=== PATIENT | female | born 1945 | race Caucasian/White ===

== ENCOUNTER 2016-11-10 12:54 | Inpatient (IN) | payer MEDICARE, OTHER ==
[2016-11-10] MEDS ORDERED: Ciprofloxacin 500 MG Tab PO SCH (17:00)
--- NOTE | 2016-11-10 17:17 | PCM.HP ---
H&P History of Present Illness - General Date of Service: 11/10/16 Admit Problem/Dx: Admission Diagnosis/Problem Admission Diagnosis/Problem Fusion of posterior lumbar spine Source of Information: Patient History Limitations: Reports: No limitations - History of Present Illness Initial Comments - Free Text/Narative: Mrs. Zaldivar is a 70 yo female who is transferred to [facility] for a swing bed stay for rehabilitation following an L2-S1 decompression laminectomy and fusion. I do not have any discharge summary from [facility] and can only go by what the patient is telling me. Her hospital stay was complicated by anemia and she reports that she required 2 blood transfusions. She has been very frustrated with her lack of mobility since the surgery but notes that this is improving every day. She has had some trouble with constipation, which she attributes to her narcotic pain medications but states that she has been told to hold her mobic so this is really her only option for pain. She denies any other concerns at this time. - Related Data Allergies/Adverse Reactions: Allergies Allergy/AdvReac Type Severity Reaction Status Date / Time butorphanol Allergy Difficulty Verified 11/10/16 15:07 Breathing diflunisal Allergy Rash Verified 11/10/16 15:07 FD and C blue no.2 Allergy Rash Verified 11/10/16 15:07 (indigotine) flaxseed Allergy Other Verified 11/10/16 15:07 lisinopril Allergy Hypotension Verified 11/10/16 15:07 niacin Allergy Mouth Sores Verified 11/10/16 15:07 penicillin G Allergy Rash Verified 11/10/16 15:07 Penicillins Allergy Rash Verified 11/10/16 15:07 ramipril Allergy Rash Verified 11/10/16 15:07 Home Medications: Home Meds Acetaminophen 650 mg PO Q4H PRN 11/10/16 [History] Aspirin [Halfprin] 81 mg PO DAILY 11/10/16 [History] Atenolol 50 mg PO BID 11/10/16 [History] Baclofen 10 mg PO TIDMEALS PRN 11/10/16 [History] Calcium Carb/Vitamin D3/Vit K1 [Viactiv Soft Chew Tablet] 1 each PO DAILY [History] Ciprofloxacin [Ciprofloxacin HCl] 500 mg PO Q12H 11/10/16 [History] Cyclobenzaprine [Flexeril] 10 mg PO BEDTIME 11/10/16 [History] Fluticasone Propionate [Flonase] 2 spray NASBOTH DAILY 11/10/16 [History] Glucosamine Sulfate/Msm [Glucosamine-MSM 500-400 MG] 2 tab PO DAILY 11/10/16 [ History] Hydrocodone/Acetaminophen [Hydrocodon-Acetaminophen 5-325] 1 each PO Q4H PRN 05/21 [History] Meloxicam [Mobic] 15 mg PO DAILY 11/10/16 [History] NIFEdipine [Procardia Xl] 60 mg PO DAILY 11/10/16 [History] Sertraline [Zoloft] 50 mg PO DAILY 11/10/16 [History] Simvastatin [Zocor] 20 mg PO BEDTIME 11/10/16 [History] Spironolactone [Aldactone] 25 mg PO BID 11/10/16 [History] rOPINIRole [Requip] 1 mg PO QPM 11/10/16 [History] Past Medical History HEENT History: Reports: Hard of hearing Cardiovascular History: Reports: High cholesterol, Hypertension Respiratory History: Reports: None Gastrointestinal History: Reports: Colon polyp, Other (see below) Other Gastrointestinal History: postoperative nausea/vomiting Genitourinary History: Reports: None [employer] History: Reports: Other (see below) Other OB/BYN History: post menopausal HRT Musculoskeletal History: Reports: Other (see below) Other Musculoskeletal History: carpal tunnel syndrome, DJD, RLS, ankle fusion Neurological History: Reports: None Psychiatric History: Reports: Depression Endocrine/Metabolic History: Reports: Hyperparathyroidism, Obesity/BMI 30+, Other (see below) Other Endocrine/Metabolic History: prediabetes Hematologic History: Reports: None Immunologic History: Reports: None Oncologic (Cancer) History: Reports: None Dermatologic History: Reports: None - Infectious Disease History Infectious Disease History: Reports: MRSA - Past Surgical History HEENT Surgical History: Reports: Tonsillectomy GI Surgical History: Reports: Appendectomy, Colonoscopy, Polypectomy Female Surgical History: Reports: D&C, Hysterectomy, Tubal ligation Endocrine Surgical History: Reports: Parathyroidectomy Musculoskeletal Surgical History: Reports: Other (see below) Other Musculoskeletal Surgeries/Procedures:: bilat Knee arthroplasty; L2-S1 decompression laminectomy and fusion Social & Family History - Family History Cardiac: Reports: CAD, SD - Tobacco Use Smoking Status *Q: Never Smoker - Caffeine Use Caffeine Use: Reports: Coffee, Soda - Alcohol Use Alcohol Use History: No Alcohol Use in Last Twelve Months: No - Recreational Drug Use Recreational Drug Use: No - Living Situation & Occupation Living situation: Reports: , with significant other Occupation: retired (nurse) H&P Review of Systems - Review of Systems: Review Of Systems: See Below General: Reports: no symptoms HEENT: Reports: no symptoms Pulmonary: Reports: no symptoms Cardiovascular: Reports: no symptoms Gastrointestinal: Reports: Abdominal pain, Constipation. Denies: Nausea, Vomiting Genitourinary: Reports: no symptoms Musculoskeletal: Reports: no symptoms Skin: Reports: no symptoms Psychiatric: Reports: no symptoms Neurological: Reports: no symptoms Exam - Exam Exam: See Below - Vital Signs Vital Signs: Last Vital Signs Temp 37 C 11/10/16 14:20 Pulse 88 11/10/16 14:20 Resp 18 11/10/16 14:20 BP 123/64 11/10/16 14:20 Pulse Ox 97 11/10/16 14:20 Weight: 98.883 kg - Exam General: alert, oriented, cooperative HEENT: Conjunctiva clear, Mucosa moist & pink, Posterior pharynx clear, Pupils equal, Pupils reactive Neck: supple, trachea midline. No: thyromegaly Lungs: Clear to auscultation, Normal respiratory effort Cardiovascular: regular rate, regular rhythm, normal S1, normal S2. No: systolic murmur, diastolic murmur Abdomen: normal bowel sounds, soft. No: organomegaly, distention, tenderness Extremities: normal inspection, normal pulses. No: edema Skin: warm, dry, intact *Q Meaningful Use (ADM) - VTE *Q VTE Criteria *Q: VTE Anticoagulation Contraindications: Med/tx not indicated/need - Stroke *Q Stroke Criteria *Q: - AMI *Q AMI Criteria *Q: - Problem List (1) Status post lumbar spine surgery for decompression of spinal cord SNOMED Code(s): 794943503, 974743308 ICD Code: Z98.890 - OTHER SPECIFIED POSTPROCEDURAL STATES Status: Acute Current Visit: Yes Problem Details: - Here for therapy following surgery. - Doing well postop. - PT eval and treat. - Continue flexeril, baclofen, and hydrocodone/acetaminophen PRN pain. Wean as able. (2) Leg weakness, bilateral SNOMED Code(s): 8167060 ICD Code: R29.898 - OTH SYMPTOMS AND SIGNS INVOLVING THE MUSCULOSKELETAL SYSTEM Status: Acute Current Visit: Yes Problem Details: - As above, PT eval and treat. (3) UTI (urinary tract infection) SNOMED Code(s): 19831714 ICD Code: N39.0 - URINARY TRACT INFECTION, SITE NOT SPECIFIED Status: Acute Current Visit: Yes Problem Details: - Patient reports this is the reason for the ciprofloxacin. - Will complete course on 11/12 as recorded on med list. Qualifiers: Urinary tract infection type: site unspecified Hematuria presence: without hematuria Qualified Code(s): N39.0 - Urinary tract infection, site not specified (4) Anemia SNOMED Code(s): 435916265 ICD Code: D64.9 - ANEMIA, UNSPECIFIED Status: Acute Current Visit: Yes Problem Details: - Patient reports issues postop. - Will await d/c summary to determine when this needs to be rechecked. - Recheck anytime for s/s of anemia. Qualifiers: Anemia type: unspecified type Qualified Code(s): D64.9 - Anemia, unspecified (5) Hypertension SNOMED Code(s): 66838052 ICD Code: I10 - ESSENTIAL (PRIMARY) HYPERTENSION Status: Chronic Current Visit: Yes Problem Details: - Continue atenolol and nifedipine. Qualifiers: Hypertension type: essential hypertension Qualified Code(s): I10 - Essential (primary) hypertension (6) Hyperlipidemia SNOMED Code(s): 13032708 ICD Code: E78.5 - HYPERLIPIDEMIA, UNSPECIFIED Status: Chronic Current Visit: Yes Problem Details: - Continue simvastatin. Qualifiers: Hyperlipidemia type: unspecified Qualified Code(s): E78.5 - Hyperlipidemia , unspecified (7) Restless leg syndrome SNOMED Code(s): 54204572 ICD Code: G25.81 - RESTLESS LEGS SYNDROME Status: Chronic Current Visit: Yes Problem Details: - Continue ropinorole. (8) Depression SNOMED Code(s): 11143801 ICD Code: F32.9 - MAJOR DEPRESSIVE DISORDER, SINGLE EPISODE, UNSPECIFIED Status: Chronic Current Visit: Yes Problem Details: - Continue zoloft. Qualifiers: Depression Type: major depressive disorder Major depression recurrence: single episode Major depression episode severity: unspecified (9) Seasonal allergies SNOMED Code(s): 899443964 ICD Code: J30.2 - OTHER SEASONAL ALLERGIC RHINITIS Status: Chronic Current Visit: Yes Problem Details: - Continue flonase. Qualifiers: Allergic rhinitis trigger: unspecified Qualified Code(s): J30.2 - Other seasonal allergic rhinitis (10) DJD (degenerative joint disease) SNOMED Code(s): 637067094 ICD Code: M19.90 - UNSPECIFIED OSTEOARTHRITIS, UNSPECIFIED SITE Status: Chronic Current Visit: Yes Problem Details: - Hold eric until we get clarification from her hospital summary. Qualifiers: Osteoarthritis location: unspecified site Osteoarthritis type: primary Qualified Code(s): M19.91 - Primary osteoarthritis, unspecified site (11) Obesity (BMI 30-39.9) SNOMED Code(s): 867121031, 423571419 ICD Code: E66.9 - OBESITY, UNSPECIFIED Status: Chronic Current Visit: Yes Problem List Initiated/Reviewed/Updated: Yes Orders Last 24hrs: Active Orders 24 hr Category Date Time Status Admission Status [Patient Status] [ADT] Routine ADT 11/10/16 14:05 Active Oxygen Therapy [RC] .PRN Care 11/10/16 16:30 Active Oxygen Therapy [RC] PRN Care 11/10/16 16:31 Active Up With Assistance [RC] ASDIRECTED Care 11/10/16 16:30 Active VTE/DVT Education [RC] .PRN Care 11/10/16 16:30 Active Vital Signs [RC] 06,18 Care 11/10/16 16:30 Active PT Evaluation and Treatment [CONS] Routine Cons 11/10/16 16:31 Active Regular Diet [DIET] Diet 11/10/16 Dinner Active Acetaminophen [Tylenol] Med 11/10/16 17:08 Ordered 650 mg PO Q4H PRN Acetaminophen/HYDROcodone [[place] 325-5 MG] Med 11/10/16 17:08 Ordered DOSE tab PO Q4H PRN Atenolol [Tenormin] Med 11/10/16 20:00 Ordered 50 mg PO BID Baclofen [Lioresal] Med 11/10/16 17:08 Ordered 10 mg PO TIDMEALS PRN Calcium Carb/Vitamin D3/Vit K1 [Viactiv Soft Chew] Med 11/11/16 08:00 Ordered 1 each PO DAILY Ciprofloxacin [Ciprofloxacin HCl] Med 11/10/16 17:15 Ordered 500 mg PO Q12H Cyclobenzaprine [Flexeril] Med 11/10/16 20:00 Ordered 10 mg PO BEDTIME Fluticasone Propionate [Flonase] Med 11/11/16 08:00 Ordered DOSE gm NASBOTH DAILY NIFEdipine [Procardia Xl] Med 11/11/16 08:00 Ordered 60 mg PO DAILY Sertraline [Zoloft] Med 11/11/16 08:00 Ordered 50 mg PO DAILY Simvastatin [Zocor] Med 11/10/16 20:00 Ordered 20 mg PO BEDTIME Spironolactone [Aldactone] Med 11/10/16 20:00 Ordered 25 mg PO BID rOPINIRole [Requip] Med 11/10/16 20:00 Ordered 1 mg PO QPM Anticoagulation Contraindications VTE [AST] Routine Oth 11/10/16 16:30 Ordered Resuscitation Status Routine Resus Stat 11/10/16 16:30 Ordered Medication Orders Acetaminophen (Tylenol) 650 mg PO Q4H PRN PRN Reason: Pain Acetaminophen/Hydrocodone Bitart ([place] 325-5 Mg) tab PO Q4H PRN PRN Reason: Pain (moderate 4-6) Atenolol (Tenormin) 50 mg PO BID YAMINI Baclofen (Lioresal) 10 mg PO TIDMEALS PRN PRN Reason: Pain Ciprofloxacin (Ciprofloxacin Hcl) 500 mg PO Q12H YAMINI Stop: 11/10/16 20:01 Cyclobenzaprine HCl (Flexeril) 10 mg PO BEDTIME YAMINI Fluticasone Propionate (Flonase) gm NASBOTH DAILY YAMINI Non-Formulary Medication (Calcium Carb/Vitamin D3/Vit K1 [Viactiv Soft Chew]) 1 each PO DAILY YAMINI Non-Formulary Medication (Nifedipine [Procardia Xl]) 60 mg PO DAILY YAMINI Non-Formulary Medication (Ropinirole [Requip]) 1 mg PO QPM YAMINI Sertraline HCl (Zoloft) 50 mg PO DAILY YAMINI Simvastatin (Zocor) 20 mg PO BEDTIME YAMINI Spironolactone (Aldactone) 25 mg PO BID YAMINI Assessment/Plan Comment:: 70 yo admitted for rehab swing bed stay s/p L2-S1 decompression and fusion. Awaiting hospital d/c summary for additional details regarding hospitalization. For now, see details under problems listed above. Continue medications with the exception of mobic and aspirin until this is clarified. Patient will not be on VTE prophylaxis either until this is clarified given recent surgery and need for transfusion during her hospitalization. She is Full Code. Duration of stay will be dependent on progress with PT.
[2016-11-10] MEDS ORDERED: Atenolol 50 MG Tab PO SCH (20:00)
[2016-11-10] MEDS ORDERED: Spironolactone 25 MG Tab PO SCH (20:00)
[2016-11-10] MEDS: Ciprofloxacin 500 MG Tab PO SCH (21:50)
[2016-11-10] MEDS: Cyclobenzaprine 10 MG Tab PO SCH (21:50)
[2016-11-10] MEDS: Atenolol 50 MG Tab PO SCH (21:50)
[2016-11-10] MEDS: Simvastatin 20 MG Tab PO SCH (21:51)
[2016-11-10] MEDS: rOPINIRole 0.5 MG Tab PO SCH (21:51)
[2016-11-10] MEDS: Acetaminophen 325 MG Tab PO PRN (21:52)
[2016-11-11] MEDS ORDERED: VIT K1 PO SCH (08:00)
[2016-11-11] MEDS ORDERED: CALCIUM CARB PO SCH (08:00)
[2016-11-11] MEDS ORDERED: [UNRECOGNIZED DRUG - OTHER] PO SCH (08:00)
[2016-11-11] MEDS ORDERED: VITAMIN D3 PO SCH (08:00)
[2016-11-11] MEDS: Atenolol 50 MG Tab PO SCH ×2 (08:24→20:08)
[2016-11-11] MEDS: Sertraline 50 MG Tab PO SCH (08:26)
[2016-11-11] MEDS: Ciprofloxacin 500 MG Tab PO SCH ×2 (08:26→20:08)
[2016-11-11] MEDS: Acetaminophen/HYDROcodone 325-5 MG Tab PO PRN (08:26)
[2016-11-11] MEDS: Aspirin 81 MG Tab.EC PO SCH (08:26)
[2016-11-11] MEDS: Polyethylene Glycol 3350 Powder 17 GM Packet PO SCH (08:27)
[2016-11-11] MEDS: NIFEdipine 30 MG Tab.ER PO SCH (08:27)
[2016-11-11] MEDS: Fluticasone Propionate Nasal Spray 16 GM Bottle NASBOTH SCH (08:30)
[2016-11-11] MEDS: Acetaminophen 325 MG Tab PO PRN ×2 (15:34→20:40)
[2016-11-11] MEDS: Baclofen 10 MG Tab PO PRN ×2 (15:37→20:40)
[2016-11-11] MEDS: rOPINIRole 0.5 MG Tab PO SCH (20:07)
[2016-11-11] MEDS: Cyclobenzaprine 10 MG Tab PO SCH (20:09)
[2016-11-11] MEDS: Simvastatin 20 MG Tab PO SCH (20:09)
[2016-11-12] MEDS: Acetaminophen 325 MG Tab PO PRN ×4 (03:39→19:18)
[2016-11-12] MEDS: Aspirin 81 MG Tab.EC PO SCH (07:22)
[2016-11-12] MEDS: Sertraline 50 MG Tab PO SCH (07:22)
[2016-11-12] MEDS: Ciprofloxacin 500 MG Tab PO SCH ×2 (07:22→19:19)
[2016-11-12] MEDS: Atenolol 50 MG Tab PO SCH ×2 (07:23→19:20)
[2016-11-12] MEDS: NIFEdipine 30 MG Tab.ER PO SCH (07:23)
[2016-11-12] MEDS: Fluticasone Propionate Nasal Spray 16 GM Bottle NASBOTH SCH (07:24)
[2016-11-12] MEDS: Polyethylene Glycol 3350 Powder 17 GM Packet PO SCH (07:24)
[2016-11-12] MEDS: Baclofen 10 MG Tab PO PRN (09:29)
[2016-11-12] MEDS: Acetaminophen/HYDROcodone 325-5 MG Tab PO PRN ×2 (13:18→23:19)
[2016-11-12] MEDS: rOPINIRole 0.5 MG Tab PO SCH (19:19)
[2016-11-12] MEDS: Simvastatin 20 MG Tab PO SCH (19:20)
[2016-11-12] MEDS: Cyclobenzaprine 10 MG Tab PO SCH (19:21)
[2016-11-13] MEDS: Acetaminophen 325 MG Tab PO PRN ×3 (04:41→19:12)
[2016-11-13] MEDS: Fluticasone Propionate Nasal Spray 16 GM Bottle NASBOTH SCH (07:58)
[2016-11-13] MEDS: Sertraline 50 MG Tab PO SCH (07:58)
[2016-11-13] MEDS: Aspirin 81 MG Tab.EC PO SCH (07:58)
[2016-11-13] MEDS: Ciprofloxacin 500 MG Tab PO SCH ×2 (07:58→19:11)
[2016-11-13] MEDS: Polyethylene Glycol 3350 Powder 17 GM Packet PO SCH (07:58)
[2016-11-13] MEDS: NIFEdipine 30 MG Tab.ER PO SCH (07:58)
[2016-11-13] MEDS: Atenolol 50 MG Tab PO SCH ×2 (07:59→19:11)
[2016-11-13] MEDS: Acetaminophen/HYDROcodone 325-5 MG Tab PO PRN ×2 (09:44→23:24)
[2016-11-13] MEDS: rOPINIRole 0.5 MG Tab PO SCH (19:10)
[2016-11-13] MEDS: Cyclobenzaprine 10 MG Tab PO SCH (19:12)
[2016-11-13] MEDS: Simvastatin 20 MG Tab PO SCH (19:12)
[2016-11-14] MEDS: Acetaminophen 325 MG Tab PO PRN ×2 (02:21→21:47)
[2016-11-14] MEDS: Fluticasone Propionate Nasal Spray 16 GM Bottle NASBOTH SCH (07:40)
[2016-11-14] MEDS: Ciprofloxacin 500 MG Tab PO SCH (07:40)
[2016-11-14] MEDS: Polyethylene Glycol 3350 Powder 17 GM Packet PO SCH (07:40)
[2016-11-14] MEDS: NIFEdipine 30 MG Tab.ER PO SCH (07:40)
[2016-11-14] MEDS: Atenolol 50 MG Tab PO SCH (07:41)
[2016-11-14] MEDS: Baclofen 10 MG Tab PO PRN ×2 (07:41→16:07)
[2016-11-14] MEDS: Sertraline 50 MG Tab PO SCH (07:41)
[2016-11-14] MEDS: Aspirin 81 MG Tab.EC PO SCH (07:41)
[2016-11-14] MEDS: Acetaminophen/HYDROcodone 325-5 MG Tab PO PRN ×2 (12:57→17:54)
[2016-11-14] MEDS: rOPINIRole 0.5 MG Tab PO SCH (19:45)
[2016-11-14] MEDS: Atenolol 25 MG Tab PO SCH (19:46)
[2016-11-14] MEDS: Simvastatin 20 MG Tab PO SCH (19:46)
[2016-11-14] MEDS: Cyclobenzaprine 10 MG Tab PO SCH (19:46)
[2016-11-15] MEDS: Acetaminophen/HYDROcodone 325-5 MG Tab PO PRN ×3 (00:51→21:01)
[2016-11-15] MEDS: Acetaminophen 325 MG Tab PO PRN ×2 (05:33→15:35)
[2016-11-15] MEDS: NIFEdipine 30 MG Tab.ER PO SCH (08:32)
[2016-11-15] MEDS: Polyethylene Glycol 3350 Powder 17 GM Packet PO SCH (08:32)
[2016-11-15] MEDS: Aspirin 81 MG Tab.EC PO SCH (08:33)
[2016-11-15] MEDS: Atenolol 25 MG Tab PO SCH ×2 (08:33→19:30)
[2016-11-15] MEDS: Fluticasone Propionate Nasal Spray 16 GM Bottle NASBOTH SCH (08:33)
[2016-11-15] MEDS: Sertraline 50 MG Tab PO SCH (08:33)
--- NOTE | 2016-11-15 10:34 | PCM.SN ---
- Free Text/Narrative Note: Patient due for staple removal today. Cancelled [place] appointment as we are able to do that here. Swati removed without complication. There was an area on the lower aspect of the incision that is gaping in the superficial levels; the deeper levels are healing well. Steri-strips were applied to keep this approximated. Continue current wound cares. As she is 2 weeks out from surgery and things are healing well, will go ahead and restart her mobic at her previous home doses. Recheck CBC tomorrow morning.
[2016-11-15] MEDS: Meloxicam 7.5 MG Tab PO SCH (12:09)
[2016-11-15] MEDS: rOPINIRole 0.5 MG Tab PO SCH (19:29)
[2016-11-15] MEDS: Cyclobenzaprine 10 MG Tab PO SCH (19:29)
[2016-11-15] MEDS: Simvastatin 20 MG Tab PO SCH (19:30)
[2016-11-16] MEDS: Acetaminophen/HYDROcodone 325-5 MG Tab PO PRN ×5 (01:04→21:30)
[2016-11-16] MEDS: Fluticasone Propionate Nasal Spray 16 GM Bottle NASBOTH SCH (08:08)
[2016-11-16] MEDS: Polyethylene Glycol 3350 Powder 17 GM Packet PO SCH (08:08)
[2016-11-16] MEDS: Aspirin 81 MG Tab.EC PO SCH (08:09)
[2016-11-16] MEDS: Baclofen 10 MG Tab PO PRN (08:09)
[2016-11-16] MEDS: NIFEdipine 30 MG Tab.ER PO SCH (08:09)
[2016-11-16] MEDS: Atenolol 25 MG Tab PO SCH ×2 (08:09→19:55)
[2016-11-16] MEDS: Sertraline 50 MG Tab PO SCH (08:09)
[2016-11-16] MEDS: Meloxicam 7.5 MG Tab PO SCH (08:09)
[2016-11-16] MEDS: rOPINIRole 0.5 MG Tab PO SCH (19:54)
[2016-11-16] MEDS: Cyclobenzaprine 10 MG Tab PO SCH (19:54)
[2016-11-16] MEDS: Simvastatin 20 MG Tab PO SCH (20:01)
[2016-11-17] MEDS: Baclofen 10 MG Tab PO PRN ×2 (01:43→20:00)
[2016-11-17] MEDS: Acetaminophen 325 MG Tab PO PRN ×2 (06:25→13:36)
[2016-11-17] MEDS: Aspirin 81 MG Tab.EC PO SCH (07:39)
[2016-11-17] MEDS: Sertraline 50 MG Tab PO SCH (07:39)
[2016-11-17] MEDS: Atenolol 25 MG Tab PO SCH ×2 (07:39→20:00)
[2016-11-17] MEDS: NIFEdipine 30 MG Tab.ER PO SCH (07:39)
[2016-11-17] MEDS: Acetaminophen/HYDROcodone 325-5 MG Tab PO PRN ×3 (07:40→21:12)
[2016-11-17] MEDS: Meloxicam 7.5 MG Tab PO SCH (07:40)
[2016-11-17] MEDS: Fluticasone Propionate Nasal Spray 16 GM Bottle NASBOTH SCH (07:40)
[2016-11-17] MEDS: Polyethylene Glycol 3350 Powder 17 GM Packet PO SCH (07:41)
--- NOTE | 2016-11-17 17:09 | PCM.SN ---
- Free Text/Narrative Note: Patient has had difficulty sleeping. She feels this is related to the fact that she usually sleeps in a recliner rather than a bed at home. She is finding this uncomfortable and feels achey at night. Nursing staff wonder if there is some anxiety contributing. Patient had been on gabapentin but developed hallucinations. This was at a dose of 600 mg TID. I think that gabapentin would be a good option to treat anxiety, sleep, and pain. The patient is willing to give this a try at a lower dose. Will start at 100 mg before bed.
[2016-11-17] MEDS: Gabapentin 100 MG Cap PO SCH (20:00)
[2016-11-17] MEDS: Cyclobenzaprine 10 MG Tab PO SCH (20:00)
[2016-11-17] MEDS: rOPINIRole 0.5 MG Tab PO SCH (20:00)
[2016-11-17] MEDS: Simvastatin 20 MG Tab PO SCH (20:00)
[2016-11-18] MEDS: Acetaminophen/HYDROcodone 325-5 MG Tab PO PRN ×4 (01:17→20:21)
[2016-11-18] MEDS: Baclofen 10 MG Tab PO PRN ×2 (03:45→07:55)
[2016-11-18] MEDS: Polyethylene Glycol 3350 Powder 17 GM Packet PO SCH (07:50)
[2016-11-18] MEDS: Sertraline 50 MG Tab PO SCH (07:51)
[2016-11-18] MEDS: Aspirin 81 MG Tab.EC PO SCH (07:51)
[2016-11-18] MEDS: Fluticasone Propionate Nasal Spray 16 GM Bottle NASBOTH SCH (07:52)
[2016-11-18] MEDS: NIFEdipine 30 MG Tab.ER PO SCH (07:53)
[2016-11-18] MEDS: Meloxicam 7.5 MG Tab PO SCH (07:53)
[2016-11-18] MEDS: Atenolol 25 MG Tab PO SCH ×2 (07:54→20:23)
[2016-11-18] MEDS: Simvastatin 20 MG Tab PO SCH (20:23)
[2016-11-18] MEDS: rOPINIRole 0.5 MG Tab PO SCH (20:23)
[2016-11-18] MEDS: Gabapentin 100 MG Cap PO SCH (20:23)
[2016-11-18] MEDS: Acetaminophen 325 MG Tab PO PRN (20:23)
[2016-11-18] MEDS: Cyclobenzaprine 10 MG Tab PO SCH (20:23)
[2016-11-19] MEDS: Acetaminophen/HYDROcodone 325-5 MG Tab PO PRN ×4 (03:06→20:55)
[2016-11-19] MEDS: Meloxicam 7.5 MG Tab PO SCH (08:10)
[2016-11-19] MEDS: Baclofen 10 MG Tab PO PRN (08:10)
[2016-11-19] MEDS: Polyethylene Glycol 3350 Powder 17 GM Packet PO SCH (08:10)
[2016-11-19] MEDS: Fluticasone Propionate Nasal Spray 16 GM Bottle NASBOTH SCH (08:11)
[2016-11-19] MEDS: Sertraline 50 MG Tab PO SCH (08:11)
[2016-11-19] MEDS: Aspirin 81 MG Tab.EC PO SCH (08:11)
[2016-11-19] MEDS: Atenolol 25 MG Tab PO SCH ×2 (08:11→20:56)
[2016-11-19] MEDS: NIFEdipine 30 MG Tab.ER PO SCH (08:11)
[2016-11-19] MEDS: Simvastatin 20 MG Tab PO SCH (20:54)
[2016-11-19] MEDS: Acetaminophen 325 MG Tab PO PRN (20:55)
[2016-11-19] MEDS: rOPINIRole 0.5 MG Tab PO SCH (20:59)
[2016-11-19] MEDS: Gabapentin 100 MG Cap PO SCH (20:59)
[2016-11-19] MEDS: Cyclobenzaprine 10 MG Tab PO SCH (20:59)
[2016-11-20] MEDS: Acetaminophen/HYDROcodone 325-5 MG Tab PO PRN ×4 (00:34→20:31)
[2016-11-20] MEDS: Atenolol 25 MG Tab PO SCH ×2 (07:59→20:32)
[2016-11-20] MEDS: Sertraline 50 MG Tab PO SCH (07:59)
[2016-11-20] MEDS: Meloxicam 7.5 MG Tab PO SCH (07:59)
[2016-11-20] MEDS: Polyethylene Glycol 3350 Powder 17 GM Packet PO SCH (07:59)
[2016-11-20] MEDS: NIFEdipine 30 MG Tab.ER PO SCH (07:59)
[2016-11-20] MEDS: Fluticasone Propionate Nasal Spray 16 GM Bottle NASBOTH SCH (07:59)
[2016-11-20] MEDS: Aspirin 81 MG Tab.EC PO SCH (07:59)
[2016-11-20] MEDS: Baclofen 10 MG Tab PO PRN ×2 (09:59→19:00)
[2016-11-20] MEDS: Nystatin Crm 30 GM Tube TOP SCH ×3 (10:01→20:34)
[2016-11-20] MEDS: rOPINIRole 0.5 MG Tab PO SCH (20:31)
[2016-11-20] MEDS: Cyclobenzaprine 10 MG Tab PO SCH (20:31)
[2016-11-20] MEDS: Acetaminophen 325 MG Tab PO PRN (20:31)
[2016-11-20] MEDS: Simvastatin 20 MG Tab PO SCH (20:31)
[2016-11-20] MEDS: Gabapentin 100 MG Cap PO SCH (20:35)
[2016-11-21] MEDS: Acetaminophen/HYDROcodone 325-5 MG Tab PO PRN ×4 (01:25→20:09)
[2016-11-21] MEDS: Atenolol 25 MG Tab PO SCH ×2 (08:43→20:10)
[2016-11-21] MEDS: NIFEdipine 30 MG Tab.ER PO SCH (08:43)
[2016-11-21] MEDS: Polyethylene Glycol 3350 Powder 17 GM Packet PO SCH (08:43)
[2016-11-21] MEDS: Aspirin 81 MG Tab.EC PO SCH (08:43)
[2016-11-21] MEDS: Meloxicam 7.5 MG Tab PO SCH (08:43)
[2016-11-21] MEDS: Sertraline 50 MG Tab PO SCH (08:43)
[2016-11-21] MEDS: Fluticasone Propionate Nasal Spray 16 GM Bottle NASBOTH SCH (08:43)
[2016-11-21] MEDS: Nystatin Crm 30 GM Tube TOP SCH ×3 (08:43→20:11)
[2016-11-21] MEDS: Baclofen 10 MG Tab PO PRN ×2 (08:43→17:40)
--- NOTE | 2016-11-21 12:56 | PCM.SN ---
- Free Text/Narrative Note: Checked on patient today. She is overall doing well except for sleep continuing to be an issue. She is now refusing the gabapentin as she fell twice over the weekend and believed this to be the cause. She slept in a recliner last night and this seems better. She did not sustain any injuries with the falls and describes them as "sliding out of bed." She reports that physical therapy is anticipating a 2 week stay before dismissal home. Her pain is controlled. Her pulse was higher yesterday but she states this was checked just after she had returned from a walk. She has had no chest pain or shortness of breath. I did look at her incision and this continues to heal well. She is cleared to shower. Her follow-up appointment is also scheduled.
[2016-11-21] MEDS: Simvastatin 20 MG Tab PO SCH (20:09)
[2016-11-21] MEDS: rOPINIRole 0.5 MG Tab PO SCH (20:09)
[2016-11-21] MEDS: Cyclobenzaprine 10 MG Tab PO SCH (20:10)
[2016-11-22] MEDS: Baclofen 10 MG Tab PO PRN ×3 (00:30→20:01)
[2016-11-22] MEDS: Acetaminophen/HYDROcodone 325-5 MG Tab PO PRN ×3 (04:40→16:43)
[2016-11-22] MEDS: Fluticasone Propionate Nasal Spray 16 GM Bottle NASBOTH SCH (08:49)
[2016-11-22] MEDS: Aspirin 81 MG Tab.EC PO SCH (08:49)
[2016-11-22] MEDS: Sertraline 50 MG Tab PO SCH (08:50)
[2016-11-22] MEDS: Meloxicam 7.5 MG Tab PO SCH (08:51)
[2016-11-22] MEDS: Atenolol 25 MG Tab PO SCH ×2 (08:51→20:01)
[2016-11-22] MEDS: NIFEdipine 30 MG Tab.ER PO SCH (08:51)
[2016-11-22] MEDS: Nystatin Crm 30 GM Tube TOP SCH ×3 (08:52→20:02)
[2016-11-22] MEDS: Polyethylene Glycol 3350 Powder 17 GM Packet PO SCH (08:53)
[2016-11-22] MEDS: Simvastatin 20 MG Tab PO SCH (20:01)
[2016-11-22] MEDS: rOPINIRole 0.5 MG Tab PO SCH (20:01)
[2016-11-22] MEDS: Cyclobenzaprine 10 MG Tab PO SCH (20:02)
[2016-11-23] MEDS: Acetaminophen 325 MG Tab PO PRN ×2 (02:05→20:51)
[2016-11-23] MEDS: Acetaminophen/HYDROcodone 325-5 MG Tab PO PRN ×3 (05:24→20:50)
[2016-11-23] MEDS: Baclofen 10 MG Tab PO PRN ×2 (08:55→16:37)
[2016-11-23] MEDS: NIFEdipine 30 MG Tab.ER PO SCH (09:19)
[2016-11-23] MEDS: Fluticasone Propionate Nasal Spray 16 GM Bottle NASBOTH SCH (09:19)
[2016-11-23] MEDS: Sertraline 50 MG Tab PO SCH (09:21)
[2016-11-23] MEDS: Meloxicam 7.5 MG Tab PO SCH (09:21)
[2016-11-23] MEDS: Atenolol 25 MG Tab PO SCH ×2 (09:21→20:50)
[2016-11-23] MEDS: Polyethylene Glycol 3350 Powder 17 GM Packet PO SCH (09:22)
[2016-11-23] MEDS: Aspirin 81 MG Tab.EC PO SCH (09:22)
[2016-11-23] MEDS: Nystatin Crm 30 GM Tube TOP SCH ×3 (09:23→20:51)
[2016-11-23] MEDS: Cyclobenzaprine 10 MG Tab PO SCH (20:50)
[2016-11-23] MEDS: rOPINIRole 0.5 MG Tab PO SCH (20:51)
[2016-11-23] MEDS: Simvastatin 20 MG Tab PO SCH (20:51)
[2016-11-24] MEDS: Acetaminophen/HYDROcodone 325-5 MG Tab PO PRN ×5 (01:34→23:17)
[2016-11-24] MEDS: Acetaminophen 325 MG Tab PO PRN (06:47)
[2016-11-24] MEDS: Polyethylene Glycol 3350 Powder 17 GM Packet PO SCH (08:54)
[2016-11-24] MEDS: Nystatin Crm 30 GM Tube TOP SCH ×3 (08:54→19:50)
[2016-11-24] MEDS: Fluticasone Propionate Nasal Spray 16 GM Bottle NASBOTH SCH (08:54)
[2016-11-24] MEDS: Atenolol 25 MG Tab PO SCH ×2 (08:56→19:49)
[2016-11-24] MEDS: Aspirin 81 MG Tab.EC PO SCH (08:56)
[2016-11-24] MEDS: Sertraline 50 MG Tab PO SCH (08:56)
[2016-11-24] MEDS: Meloxicam 7.5 MG Tab PO SCH (08:57)
[2016-11-24] MEDS: NIFEdipine 30 MG Tab.ER PO SCH (08:57)
[2016-11-24] MEDS: Cyclobenzaprine 10 MG Tab PO SCH (19:49)
[2016-11-24] MEDS: Simvastatin 20 MG Tab PO SCH (19:49)
[2016-11-24] MEDS: Baclofen 10 MG Tab PO PRN (19:50)
[2016-11-24] MEDS: rOPINIRole 0.5 MG Tab PO SCH (19:51)
[2016-11-25] MEDS: Acetaminophen/HYDROcodone 325-5 MG Tab PO PRN ×2 (03:52→08:45)
[2016-11-25] MEDS: NIFEdipine 30 MG Tab.ER PO SCH (08:38)
[2016-11-25] MEDS: Aspirin 81 MG Tab.EC PO SCH (08:38)
[2016-11-25] MEDS: Meloxicam 7.5 MG Tab PO SCH (08:38)
[2016-11-25] MEDS: Atenolol 25 MG Tab PO SCH ×2 (08:38→20:04)
[2016-11-25] MEDS: Sertraline 50 MG Tab PO SCH (08:38)
[2016-11-25] MEDS: Fluticasone Propionate Nasal Spray 16 GM Bottle NASBOTH SCH (08:39)
[2016-11-25] MEDS: Nystatin Crm 30 GM Tube TOP SCH ×3 (08:39→20:06)
[2016-11-25] MEDS: Polyethylene Glycol 3350 Powder 17 GM Packet PO SCH (08:40)
[2016-11-25] MEDS: Baclofen 10 MG Tab PO PRN ×2 (12:39→21:59)
[2016-11-25] MEDS: rOPINIRole 0.5 MG Tab PO SCH (20:03)
[2016-11-25] MEDS: Simvastatin 20 MG Tab PO SCH (20:05)
[2016-11-25] MEDS: Cyclobenzaprine 10 MG Tab PO SCH (20:33)
[2016-11-26] MEDS: Acetaminophen/HYDROcodone 325-5 MG Tab PO PRN ×2 (02:21→12:47)
[2016-11-26] MEDS: Polyethylene Glycol 3350 Powder 17 GM Packet PO SCH (08:01)
[2016-11-26] MEDS: Fluticasone Propionate Nasal Spray 16 GM Bottle NASBOTH SCH (08:01)
[2016-11-26] MEDS: NIFEdipine 30 MG Tab.ER PO SCH (08:02)
[2016-11-26] MEDS: Meloxicam 7.5 MG Tab PO SCH (08:02)
[2016-11-26] MEDS: Aspirin 81 MG Tab.EC PO SCH (08:03)
[2016-11-26] MEDS: Baclofen 10 MG Tab PO PRN ×2 (08:03→21:25)
[2016-11-26] MEDS: Sertraline 50 MG Tab PO SCH (08:03)
[2016-11-26] MEDS: Atenolol 25 MG Tab PO SCH ×2 (08:03→19:47)
[2016-11-26] MEDS: Nystatin Crm 30 GM Tube TOP SCH ×3 (08:06→19:48)
[2016-11-26] MEDS: rOPINIRole 0.5 MG Tab PO SCH (19:47)
[2016-11-26] MEDS: Simvastatin 20 MG Tab PO SCH (19:48)
[2016-11-26] MEDS: Cyclobenzaprine 10 MG Tab PO SCH (19:48)
[2016-11-27] MEDS: Acetaminophen/HYDROcodone 325-5 MG Tab PO PRN ×3 (02:24→17:32)
[2016-11-27] MEDS: Atenolol 25 MG Tab PO SCH ×2 (07:58→19:56)
[2016-11-27] MEDS: Meloxicam 7.5 MG Tab PO SCH (07:58)
[2016-11-27] MEDS: NIFEdipine 30 MG Tab.ER PO SCH (07:58)
[2016-11-27] MEDS: Nystatin Crm 30 GM Tube TOP SCH ×3 (07:58→19:58)
[2016-11-27] MEDS: Sertraline 50 MG Tab PO SCH (07:58)
[2016-11-27] MEDS: Polyethylene Glycol 3350 Powder 17 GM Packet PO SCH (07:58)
[2016-11-27] MEDS: Aspirin 81 MG Tab.EC PO SCH (07:58)
[2016-11-27] MEDS: Fluticasone Propionate Nasal Spray 16 GM Bottle NASBOTH SCH (07:59)
[2016-11-27] MEDS: Baclofen 10 MG Tab PO PRN ×2 (11:56→21:29)
[2016-11-27] MEDS: rOPINIRole 0.5 MG Tab PO SCH (19:57)
[2016-11-27] MEDS: Cyclobenzaprine 10 MG Tab PO SCH (19:58)
[2016-11-27] MEDS: Simvastatin 20 MG Tab PO SCH (19:58)
[2016-11-28] MEDS: Acetaminophen/HYDROcodone 325-5 MG Tab PO PRN ×2 (02:36→12:28)
[2016-11-28] MEDS: NIFEdipine 30 MG Tab.ER PO SCH (07:32)
[2016-11-28] MEDS: Polyethylene Glycol 3350 Powder 17 GM Packet PO SCH (07:32)
[2016-11-28] MEDS: Baclofen 10 MG Tab PO PRN ×3 (07:32→21:33)
[2016-11-28] MEDS: Aspirin 81 MG Tab.EC PO SCH (07:32)
[2016-11-28] MEDS: Atenolol 25 MG Tab PO SCH ×2 (07:33→20:02)
[2016-11-28] MEDS: Fluticasone Propionate Nasal Spray 16 GM Bottle NASBOTH SCH (07:33)
[2016-11-28] MEDS: Nystatin Crm 30 GM Tube TOP SCH ×3 (07:33→21:04)
[2016-11-28] MEDS: Sertraline 50 MG Tab PO SCH (07:33)
[2016-11-28] MEDS: Meloxicam 7.5 MG Tab PO SCH (07:33)
[2016-11-28] MEDS: Simvastatin 20 MG Tab PO SCH (20:01)
[2016-11-28] MEDS: rOPINIRole 0.5 MG Tab PO SCH (20:01)
[2016-11-28] MEDS: Cyclobenzaprine 10 MG Tab PO SCH (20:02)
[2016-11-29] MEDS: Acetaminophen/HYDROcodone 325-5 MG Tab PO PRN ×4 (01:13→20:11)
[2016-11-29] MEDS: Sertraline 50 MG Tab PO SCH (08:12)
[2016-11-29] MEDS: NIFEdipine 30 MG Tab.ER PO SCH (08:12)
[2016-11-29] MEDS: Aspirin 81 MG Tab.EC PO SCH (08:12)
[2016-11-29] MEDS: Fluticasone Propionate Nasal Spray 16 GM Bottle NASBOTH SCH (08:12)
[2016-11-29] MEDS: Meloxicam 7.5 MG Tab PO SCH (08:12)
[2016-11-29] MEDS: Atenolol 25 MG Tab PO SCH ×2 (08:12→20:11)
[2016-11-29] MEDS: Nystatin Crm 30 GM Tube TOP SCH ×3 (08:13→20:13)
[2016-11-29] MEDS: Polyethylene Glycol 3350 Powder 17 GM Packet PO SCH (08:13)
[2016-11-29] MEDS: Baclofen 10 MG Tab PO PRN (08:17)
[2016-11-29] MEDS: rOPINIRole 0.5 MG Tab PO SCH (20:10)
[2016-11-29] MEDS: Simvastatin 20 MG Tab PO SCH (20:11)
[2016-11-29] MEDS: Cyclobenzaprine 10 MG Tab PO SCH (20:11)
[2016-11-30] MEDS: Baclofen 10 MG Tab PO PRN ×3 (00:48→21:09)
[2016-11-30] MEDS: Acetaminophen/HYDROcodone 325-5 MG Tab PO PRN ×3 (05:30→21:08)
[2016-11-30] MEDS: Meloxicam 7.5 MG Tab PO SCH (08:52)
[2016-11-30] MEDS: NIFEdipine 30 MG Tab.ER PO SCH (08:52)
[2016-11-30] MEDS: Fluticasone Propionate Nasal Spray 16 GM Bottle NASBOTH SCH (08:52)
[2016-11-30] MEDS: Sertraline 50 MG Tab PO SCH (08:52)
[2016-11-30] MEDS: Aspirin 81 MG Tab.EC PO SCH (08:52)
[2016-11-30] MEDS: Polyethylene Glycol 3350 Powder 17 GM Packet PO SCH (08:53)
[2016-11-30] MEDS: Atenolol 25 MG Tab PO SCH ×2 (08:53→21:05)
[2016-11-30] MEDS: Nystatin Crm 30 GM Tube TOP SCH ×3 (08:53→21:07)
--- NOTE | 2016-11-30 16:52 | PCM.SN ---
- Free Text/Narrative Note: Patient seen for routine visit today. She reports she is doing well. Her pain is improving. She is progressing with PT. She denies any chest pain, shortness of breath, appetite change, abdominal pain, vomiting, or diarrhea. When I see her, she is sitting up in her chair in no distress. PT feels she will be ready to dismiss home at the end of this week with home health. Will plan for this and get things arranged before then.
[2016-11-30] MEDS: Simvastatin 20 MG Tab PO SCH (21:04)
[2016-11-30] MEDS: rOPINIRole 0.5 MG Tab PO SCH (21:04)
[2016-11-30] MEDS: Cyclobenzaprine 10 MG Tab PO SCH (21:05)
[2016-12-01] MEDS: Acetaminophen/HYDROcodone 325-5 MG Tab PO PRN ×4 (02:08→20:45)
[2016-12-01] MEDS: Fluticasone Propionate Nasal Spray 16 GM Bottle NASBOTH SCH (07:52)
[2016-12-01] MEDS: Polyethylene Glycol 3350 Powder 17 GM Packet PO SCH (07:53)
[2016-12-01] MEDS: Meloxicam 7.5 MG Tab PO SCH (07:53)
[2016-12-01] MEDS: Nystatin Crm 30 GM Tube TOP SCH ×3 (07:53→20:44)
[2016-12-01] MEDS: Atenolol 25 MG Tab PO SCH ×2 (07:53→20:43)
[2016-12-01] MEDS: Sertraline 50 MG Tab PO SCH (07:53)
[2016-12-01] MEDS: Aspirin 81 MG Tab.EC PO SCH (07:53)
[2016-12-01] MEDS: NIFEdipine 30 MG Tab.ER PO SCH (07:53)
[2016-12-01] MEDS: Acetaminophen 325 MG Tab PO PRN (09:23)
--- NOTE | 2016-12-01 09:38 | PCM.DCSUM1 ---
[id number] swing bed for rehabilitation following lumbar spine surgery. Her previous hospital stay had been complicated by post-operative anemia requiring a blood transfusion and a UTI treated with ciprofloxacin. - Discharge Data Discharge Date: 12/02/16 Discharge Disposition: Home, W Home Health Agency 06 Condition: Good - Discharge Diagnosis/Problem(s) (1) Status post lumbar spine surgery for decompression of spinal cord SNOMED Code(s): 145759041, 341358321 ICD Code: Z98.890 - OTHER SPECIFIED POSTPROCEDURAL STATES Status: Acute Current Visit: Yes Problem Details: Patient admitted for therapy following back surgery. She has done very well. Her incision is healing well. Her pain is improving. She is progressing with physical therapy. Her pain has been well controlled on flexeril, baclofen, and hydrocodone/acetaminophen PRN. Her hydrocodone requirements have been decreasing. She will be discharged home today and will continue her therapies with home health. (2) Leg weakness, bilateral SNOMED Code(s): 3508854 ICD Code: R29.898 - OTH SYMPTOMS AND SIGNS INVOLVING THE MUSCULOSKELETAL SYSTEM Status: Acute Current Visit: Yes Problem Details: See above. (3) UTI (urinary tract infection) SNOMED Code(s): 83435555 ICD Code: N39.0 - URINARY TRACT INFECTION, SITE NOT SPECIFIED Status: Resolved Current Visit: Yes Problem Details: Patient reported this was the reason for the ciprofloxacin. She completed this course and had no occurrence of UTI symptoms or fever. Qualifiers: Urinary tract infection type: site unspecified Hematuria presence: without hematuria Qualified Code(s): N39.0 - Urinary tract infection, site not specified (4) Anemia SNOMED Code(s): 271430575 ICD Code: D64.9 - ANEMIA, UNSPECIFIED Status: Acute Current Visit: Yes Problem Details: Hemoglobin had dropped postoperatively and she did require a blood transfusion. Her hemoglobin checked during her swing bed admission had improved. She will need to have this rechecked again in follow-up. Qualifiers: Anemia type: unspecified type Qualified Code(s): D64.9 - Anemia, unspecified (5) Hypertension SNOMED Code(s): 88991039 ICD Code: I10 - ESSENTIAL (PRIMARY) HYPERTENSION Status: Chronic Current Visit: Yes Problem Details: Her blood pressures were excellent during her hospitalization. Her atenolol and nifedipine were continued. Her spironolactone was held and will be discontinued at this time. Qualifiers: Hypertension type: essential hypertension Qualified Code(s): I10 - Essential (primary) hypertension (6) Hyperlipidemia SNOMED Code(s): 03768265 ICD Code: E78.5 - HYPERLIPIDEMIA, UNSPECIFIED Status: Chronic Current Visit: Yes Problem Details: Simvastatin continued without incident. Qualifiers: Hyperlipidemia type: unspecified Qualified Code(s): E78.5 - Hyperlipidemia , unspecified (7) Restless leg syndrome SNOMED Code(s): 28717651 ICD Code: G25.81 - RESTLESS LEGS SYNDROME Status: Chronic Current Visit: Yes Problem Details: Ropinorole continued. She did have some difficulty with sleep in the early part of her stay but this improved once she was transitioned from the bed to the recliner for sleeping. (8) Depression SNOMED Code(s): 19552412 ICD Code: F32.9 - MAJOR DEPRESSIVE DISORDER, SINGLE EPISODE, UNSPECIFIED Status: Chronic Current Visit: Yes Problem Details: Zoloft continued without incident. Qualifiers: Depression Type: major depressive disorder Major depression recurrence: single episode Major depression episode severity: unspecified (9) Seasonal allergies SNOMED Code(s): 788511338 ICD Code: J30.2 - OTHER SEASONAL ALLERGIC RHINITIS Status: Chronic Current Visit: Yes Problem Details: Flonase continued. Qualifiers: Allergic rhinitis trigger: unspecified Qualified Code(s): J30.2 - Other seasonal allergic rhinitis (10) DJD (degenerative joint disease) SNOMED Code(s): 542006479 ICD Code: M19.90 - UNSPECIFIED OSTEOARTHRITIS, UNSPECIFIED SITE Status: Chronic Current Visit: Yes Problem Details: Her mobic was restarted during the swing bed stay without any incident. This did assist in lowering her hydrocodone requirements. Qualifiers: Osteoarthritis location: unspecified site Osteoarthritis type: primary Qualified Code(s): M19.91 - Primary osteoarthritis, unspecified site (11) Obesity (BMI 30-39.9) SNOMED Code(s): 366853794, 612625417 ICD Code: E66.9 - OBESITY, UNSPECIFIED Status: Chronic Current Visit: Yes - Patient Summary/Data Operative Procedure(s) Performed: none Complications: none Consults: Consultations 11/10/16 16:31 PT Evaluation and Treatment [CONS] Routine 11/14/16 07:00 OT Evaluation and Treatment [CONS] Routine Labs Pending at D/C: none Recommended Follow-up Testing/Procedures: Needs a CBC at her hospital follow-up appointment. Planned Operative Procedure(s) after DC: none Hospital Course: Please see above under individual problems. Her therapy progressed well and her pain continually improved. Her swing bed stay was otherwise uncomplicated. She will be dismissed home with home health and will need to follow-up with her PCP next week. - Patient Instructions Diet: Usual Diet as Tolerated Activity: As Tolerated Driving: Do Not Drive Showering/Bathing: May Shower Wound/Incision Care: Keep Operative Site/Wound Site Clean and Dry Notify Provider of: Fever, Increased Pain, Swelling and Redness, Drainage, Nausea and/or Vomiting - Discharge Plan Prescriptions/Med Rec: Acetaminophen/HYDROcodone [[place] 325-5 MG] 1 tab PO BID PRN #14 tablet PRN Reason: Pain Atenolol [Tenormin] 25 mg PO BID #60 tablet Home Medications: Home Meds Aspirin [Halfprin] 81 mg PO DAILY 11/10/16 [History] Baclofen 10 mg PO TIDMEALS PRN 11/10/16 [History] Calcium Carb/Vitamin D3/Vit K1 [Viactiv Soft Chew] 1 each PO DAILY 11/10/16 [ History] Cyclobenzaprine [Flexeril] 10 mg PO BEDTIME 11/10/16 [History] Fluticasone Propionate [Flonase] 2 spray NASBOTH DAILY 11/10/16 [History] Glucosamine Sulfate/Msm [Glucosamine-MSM 500-400 MG] 2 tab PO DAILY 11/10/16 [ History] Meloxicam [Mobic] 15 mg PO DAILY 11/10/16 [History] NIFEdipine [Procardia Xl] 60 mg PO DAILY 11/10/16 [History] Sertraline [Zoloft] 50 mg PO DAILY 11/10/16 [History] Simvastatin [Zocor] 20 mg PO BEDTIME 11/10/16 [History] rOPINIRole [Requip] 1 mg PO QPM 11/10/16 [History] Acetaminophen [Tylenol] 650 mg PO TID PRN #0 tablet 12/02/16 [Rx] Acetaminophen/HYDROcodone [[place] 325-5 MG] 1 tab PO BID PRN #14 tablet 12/02/16 [Rx] Atenolol [Tenormin] 25 mg PO BID #60 tablet 12/02/16 [Rx] Docusate Sodium/Sennosides [Senna Plus] 1 tab PO BID tablet 12/02/16 [Rx] Polyethylene Glycol 3350 [MiraLAX] 17 gm PO DAILY packet 12/02/16 [Rx] Referrals: Charissa Price, [employer] [Ordering Only Provider] - 12/08/16 - Discharge Summary/Plan Comment DC Time >30 min.: No Discharge Summary/Plan Comment: Completion of documentation for home health: Patient needs home health for ongoing physical therapy related to recent back surgery. She is homebound because she needs the assistance of another individual and of a walker in order to leave the home. Her home health course can be followed by her PCP, Charissa Price. - General Info Date of Service: 12/02/16 Subjective Update: Doing well. No concerns this morning. Ready to dismiss home. - Review of Systems General: Reports: No Symptoms HEENT: Reports: no symptoms Pulmonary: Reports: no symptoms Cardiovascular: Reports: No Symptoms Gastrointestinal: Reports: No symptoms Genitourinary: Reports: no symptoms Musculoskeletal: Reports: no symptoms Skin: Reports: no symptoms Neurological: Reports: No Symptoms - Patient Data Vitals - Most Recent: Last Vital Signs Temp 36.6 C 12/01/16 06:00 Pulse 73 12/01/16 07:53 Resp 20 12/01/16 06:00 BP 127/55 L 12/01/16 07:53 Pulse Ox 95 12/01/16 06:00 Weight - Most Recent: 82.282 kg I&O - Last 24 hours: Intake & Output 11/30/16 12/01/16 12/01/16 22:59 06:59 14:59 Intake Total 420 Balance 420 Med Orders - Current: Current Medications Acetaminophen (Tylenol) 650 mg PO TID PRN PRN Reason: Pain Last Admin: 11/24/16 06:47 Dose: 650 mg Acetaminophen/Hydrocodone Bitart ([place] 325-5 Mg) 1 tab PO Q4H PRN PRN Reason: Pain Last Admin: 12/01/16 05:54 Dose: 1 tab Aspirin (Halfprin) 81 mg PO DAILY [facility] Last Admin: 12/01/16 07:53 Dose: 81 mg Atenolol (Tenormin) 25 mg PO BID [facility] Last Admin: 12/01/16 07:53 Dose: 25 mg Baclofen (Lioresal) 10 mg PO TIDMEALS PRN PRN Reason: Pain Last Admin: 11/30/16 21:09 Dose: 10 mg Cyclobenzaprine HCl (Flexeril) 10 mg PO BEDTIME [facility] Last Admin: 11/30/16 21:05 Dose: 10 mg Fluticasone Propionate (Flonase) 0 gm NASBOTH DAILY [facility] Last Admin: 12/01/16 07:52 Dose: 2 sprays Meloxicam (Mobic) 15 mg PO DAILY [facility] Last Admin: 12/01/16 07:53 Dose: 15 mg Nifedipine (Procardia Xl) 60 mg PO DAILY [facility] Last Admin: 12/01/16 07:53 Dose: 60 mg Nystatin (Nystatin Crm) 0 gm TOP TID [facility] Last Admin: 12/01/16 07:53 Dose: 1 applic Polyethylene Glycol (Miralax) 17 gm PO DAILY [facility] Last Admin: 12/01/16 07:53 Dose: 17 gm Ropinirole HCl (Requip) 1 mg PO BEDTIME [facility] Last Admin: 11/30/16 21:04 Dose: 1 mg Senna/Docusate Sodium (Senna Plus) 1 tab PO BID [facility] Last Admin: 12/01/16 07:53 Dose: 1 tab Sertraline HCl (Zoloft) 50 mg PO DAILY [facility] Last Admin: 12/01/16 07:53 Dose: 50 mg Simvastatin (Zocor) 20 mg PO BEDTIME [facility] Last Admin: 11/30/16 21:04 Dose: 20 mg Discontinued Medications Acetaminophen (Tylenol) 650 mg PO Q4H PRN PRN Reason: Pain Last Admin: 11/14/16 02:21 Dose: 650 mg Acetaminophen/Hydrocodone Bitart ([place] 325-5 Mg) 1 tab PO Q4H PRN PRN Reason: Pain (moderate 4-6) Last Admin: 11/13/16 23:24 Dose: 1 tab Atenolol (Tenormin) 50 mg PO BID [facility] Atenolol (Tenormin) 25 mg PO BID [facility] Last Admin: 11/14/16 07:41 Dose: 25 mg Ciprofloxacin (Ciprofloxacin Hcl) 500 mg PO Q12H [facility] Stop: 11/10/16 17:01 Last Admin: 11/10/16 18:24 Dose: Not Given Ciprofloxacin (Ciprofloxacin Hcl) 500 mg PO Q12H [facility] Last Admin: 11/14/16 07:40 Dose: 500 mg Gabapentin (Neurontin) 100 mg PO BEDTIME [facility] Last Admin: 11/20/16 20:35 Dose: Not Given Non-Formulary Medication (Calcium Carb/Vitamin D3/Vit K1 [Viactiv Soft Chew]) 1 each PO DAILY [facility] Ropinirole HCl (Requip) 1 mg PO QPM [facility] Last Admin: 11/13/16 19:10 Dose: 1 mg Spironolactone (Aldactone) 25 mg PO BID [facility] - Exam General: Reports: alert, cooperative, no acute distress HEENT: Reports: Pupils equal, Pupils reactive, Mucous membr. moist/pink Neck: Reports: supple, no thyromegaly. Denies: lymphadenopathy Lungs: Reports: Clear to auscultation, Normal respiratory effort Cardiovascular: Reports: Regular Rate, Regular Rhythm, No Murmurs Abdomen: Reports: bowel sounds present, soft, no tenderness, no distension Back Exam: Reports: normal inspection (surgical incision is well healed with no redness, swelling, or pain) Extremities: Reports: no edema, normal pulses Skin: Reports: warm, dry, intact Neurological: Reports: no new focal deficit Psy/Mental Status: Reports: alert, normal affect, normal mood *Q Meaningful Use (DIS) - VTE *Q VTE Criteria *Q: VTE Anticoagulation Contraindications: Med/tx not indicated/need - Stroke *Q Stroke Criteria *Q: - AMI *Q AMI Criteria *Q:
[2016-12-01] MEDS: rOPINIRole 0.5 MG Tab PO SCH (20:42)
[2016-12-01] MEDS: Simvastatin 20 MG Tab PO SCH (20:44)
[2016-12-01] MEDS: Cyclobenzaprine 10 MG Tab PO SCH (20:44)
[2016-12-01] MEDS: Baclofen 10 MG Tab PO PRN (20:44)
[2016-12-02] MEDS: Acetaminophen/HYDROcodone 325-5 MG Tab PO PRN ×2 (02:00→07:43)
[2016-12-02 06:08] VITALS: BP 120/59
[2016-12-02] MEDS: Fluticasone Propionate Nasal Spray 16 GM Bottle NASBOTH SCH (07:41)
[2016-12-02] MEDS: Polyethylene Glycol 3350 Powder 17 GM Packet PO SCH (07:41)
[2016-12-02] MEDS: Sertraline 50 MG Tab PO SCH (07:42)
[2016-12-02] MEDS: NIFEdipine 30 MG Tab.ER PO SCH (07:42)
[2016-12-02] MEDS: Meloxicam 7.5 MG Tab PO SCH (07:42)
[2016-12-02] MEDS: Atenolol 25 MG Tab PO SCH (07:42)
[2016-12-02] MEDS: Aspirin 81 MG Tab.EC PO SCH (07:42)
[2016-12-02] MEDS: Nystatin Crm 30 GM Tube TOP SCH (07:43)
== END 2016-12-02 10:23 | disposition home health service (06) | DRG 560 ==
LOC: VM.MS 14:05
PROVIDERS: ADMIT Family Medicine; ATTEND Family Medicine
DX: Z47.89 Encounter for other orthopedic aftercare (principal); N39.0 Urinary tract infection, site not specified; D62 Acute posthemorrhagic anemia; M47.9 Spondylosis, unspecified; R29.898 Other symptoms and signs involving the musculoskeletal system; I10 Essential (primary) hypertension; E78.5 Hyperlipidemia, unspecified; G25.81 Restless legs syndrome; F32.9 Major depressive disorder, single episode, unspecified; J30.2 Other seasonal allergic rhinitis; M19.90 Unspecified osteoarthritis, unspecified site; E66.9 Obesity, unspecified
CPT/HCPCS: 36415; 85025; 87070; 97110-GP; 97116-GP; 97161-GP; 97165-GO; 97530-GP; 97535-GO; A9270-GY

== ENCOUNTER 2017-02-17 11:03 | Inpatient (IN) | payer MEDICARE, OTHER ==
[2017-02-17] MEDS ORDERED: HYDROmorphone 2 MG Tab PO PRN (15:10)
--- NOTE | 2017-02-17 15:23 | PCM.HP ---
H&P History of Present Illness - General Date of Service: 02/17/17 Admit Problem/Dx: Admission Diagnosis/Problem Admission Diagnosis/Problem Laminectomy Source of Information: Patient History Limitations: Reports: No Limitations - History of Present Illness Initial Comments - Free Text/Narative: Mrs. Zaldivar is a 71 yo female with PMH of hyperlipidemia, hypertension, DJD, RLS, depression, obesity, and hyperparathyroidism who is admitted to [facility] for swing bed rehabilitation following a cervical spine laminectomy followed by a fusion a few days later. Her hospitalization was complicated by postoperative edema causing some swallowing difficulties but that improved and then resolved. She passed a swallow evaluation yesterday. She reports she is already doing better than she was at this time s/p her prior lumbar laminectomy. She has good motion of her arms and legs with the exception of limited mobility of the left arm secondary to shoulder DJD. She is voiding well and having regular bowel movements. Her medications were adjusted in the hospital and she is doing well from that standpoint. She has no other concerns today. - Related Data Allergies/Adverse Reactions: Allergies Allergy/AdvReac Type Severity Reaction Status Date / Time butorphanol Allergy Difficulty Verified 02/17/17 11:31 Breathing diflunisal Allergy Rash Verified 02/17/17 11:31 FD and C blue no.2 Allergy Rash Verified 02/17/17 11:31 (indigotine) flaxseed Allergy Other Verified 02/17/17 11:31 lisinopril Allergy Hypotension Verified 02/17/17 11:31 penicillin G Allergy Rash Verified 02/17/17 11:31 Penicillins Allergy Rash Verified 02/17/17 11:31 ramipril Allergy Rash Verified 02/17/17 11:31 niacin AdvReac Mouth Sores Verified 02/17/17 11:31 isopropyl nicotinate Allergy Other Uncoded 02/17/17 11:31 linseed oil Allergy Other Uncoded 02/17/17 11:31 Home Medications: Home Meds Aspirin [Halfprin] 81 mg PO BEDTIME 11/10/16 [History] Fluticasone Propionate [Flonase] 2 spray NASBOTH DAILY 11/10/16 [History] Sertraline [Zoloft] 100 mg PO DAILY 11/10/16 [History] Simvastatin [Zocor] 20 mg PO BEDTIME 11/10/16 [History] Acetaminophen [Acetaminophen Extra Strength] 1,000 mg PO TID 02/10/17 [History] Calcium Carb & Citrate/Vit D3 [Calcium + D3 ER Tablet] 1 tab PO BID 02/10/17 [ History] Carvedilol [Coreg] 3.125 mg PO BIDMEALS 02/10/17 [History] Ferrous Sulfate 325 mg PO BID 02/10/17 [History] Lactulose 20 gm PO BID 02/10/17 [History] Pregabalin [Lyrica] 50 mg PO TID 02/10/17 [History] rOPINIRole [Requip] 1.5 mg PO BEDTIME 02/10/17 [History] tiZANidine HCl [Zanaflex] 1 mg PO TID 02/10/17 [History] Cyclobenzaprine [Flexeril] 5 mg PO TID PRN 02/17/17 [History] Cyclobenzaprine [Flexeril] 10 mg PO BEDTIME 02/17/17 [History] Furosemide [Lasix] 20 mg PO DAILY 02/17/17 [History] Glucosamine Sulfate/Msm [MSM-Glucosamine 250-250 mg Cap] 1 each PO BID 02/17/17 [History] HYDROmorphone HCl [Dilaudid] 2 mg PO Q4HR PRN 02/17/17 [History] LORazepam 1 mg PO BID PRN 02/17/17 [History] Ondansetron [Zofran ODT] 1 tab PO Q4H PRN 02/17/17 [History] Past Medical History HEENT History: Reports: Hard of Hearing Cardiovascular History: Reports: High Cholesterol, Hypertension Respiratory History: Reports: None Gastrointestinal History: Reports: Colon Polyp Other Gastrointestinal History: postoperative nausea/vomiting Genitourinary History: Reports: None [employer] History: Reports: Other OB/BYN History: post menopausal HRT Musculoskeletal History: Reports: Arthritis, Back Pain, Chronic, Other (See Below) Other Musculoskeletal History: left shoulder injury pain Neurological History: Reports: None Psychiatric History: Reports: Anxiety, Depression Endocrine/Metabolic History: Reports: Hyperparathyroidism, Obesity/BMI 30+ Other Endocrine/Metabolic History: prediabetes Hematologic History: Reports: None Immunologic History: Reports: None Oncologic (Cancer) History: Reports: None Dermatologic History: Reports: None - Infectious Disease History Infectious Disease History: Reports: MRSA - Past Surgical History HEENT Surgical History: Reports: Tonsillectomy GI Surgical History: Reports: Appendectomy, Colonoscopy Female Surgical History: Reports: D&C, Hysterectomy, Tubal Ligation Endocrine Surgical History: Reports: Parathyroidectomy Neurological Surgical History: Reports: C-Spine, Laminectomy, Lumbar Spine, Other (See Below) Other Neurological Surgeries/Procedures: cervical fusion Musculoskeletal Surgical History: Reports: Knee Replacement, Other (See Below) Other Musculoskeletal Surgeries/Procedures:: right ankle fusion Social & Family History - Family History Cardiac: Reports: CAD, SD - Tobacco Use Smoking Status *Q: Never Smoker - Caffeine Use Caffeine Use: Reports: Coffee, Soda - Alcohol Use Alcohol Use History: No Alcohol Use in Last Twelve Months: No - Recreational Drug Use Recreational Drug Use: No - Living Situation & Occupation Living situation: Reports: , with Significant Other Occupation: Retired H&P Review of Systems - Review of Systems: Review Of Systems: See Below General: Reports: No Symptoms HEENT: Reports: No Symptoms Pulmonary: Reports: No Symptoms Cardiovascular: Reports: No Symptoms Gastrointestinal: Reports: No Symptoms Genitourinary: Reports: No Symptoms Musculoskeletal: Reports: No Symptoms Skin: Reports: No Symptoms Neurological: Reports: No Symptoms Exam - Exam Exam: See Below - Vital Signs Vital Signs: Last Vital Signs Temp 36.8 C 02/17/17 14:19 Pulse 84 02/17/17 14:19 Resp 20 02/17/17 12:54 BP 135/67 02/17/17 14:19 Pulse Ox 98 02/17/17 12:54 Weight: 82.282 kg - Exam General: Alert, Oriented, Cooperative HEENT: Conjunctiva Clear, Posterior Pharynx Clear, Pupils Equal, Pupils Reactive Neck: Supple, Trachea Midline, Other (surgical incision site is healing well without erythema, edema, or abnormal swelling). No: Lymphadenopathy, Thyromegaly Lungs: Clear to Auscultation, Normal Respiratory Effort Cardiovascular: Regular Rate, Regular Rhythm, Normal S1, Normal S2. No: Systolic Murmur, Diastolic Murmur Abdomen: Normal Bowel Sounds, Soft. No: Organomegaly, Distention, Tenderness, Mass Extremities: Normal Inspection, Normal Pulses. No: Edema Skin: Warm, Dry, Intact Neurological: Other (moves right arm and both legs without restriction; left lower arm movement is normal and upper arm is restricted by shoulder DJD) *Q Meaningful Use (ADM) - VTE *Q VTE Criteria *Q: - Stroke *Q Stroke Criteria *Q: - AMI *Q AMI Criteria *Q: - Problem List (1) Status post cervical spinal fusion SNOMED Code(s): 888045038, 894695962 ICD Code: Z98.1 - ARTHRODESIS STATUS Status: Acute Current Visit: Yes Problem Details: - Doing well at this time. - Continue pain regimen as per [facility] d/c paperwork. - Continue bowel regimen. - PT/OT consults. Problem List Initiated/Reviewed/Updated: Yes Orders Last 24hrs: Active Orders 24 hr Category Date Time Status Admission Status [Patient Status] [ADT] Routine ADT 02/17/17 11:16 Active Communication Order [RC] 08,20 Care 02/17/17 11:35 Active Notify Provider Vital Signs [RC] ASDIRECTED Care 02/17/17 15:00 Ordered Oxygen Therapy [RC] PRN Care 02/17/17 14:59 Ordered Up With Assistance [RC] ASDIRECTED Care 02/17/17 14:59 Ordered VTE/DVT Education [RC] PER UNIT ROUTINE Care 02/17/17 14:59 Ordered Vital Signs [RC] PER UNIT ROUTINE Care 02/17/17 14:59 Ordered OT Evaluation and Treatment [CONS] Routine Cons 02/17/17 14:23 Active PT Evaluation and Treatment [CONS] Routine Cons 02/17/17 14:23 Active Regular Diet [DIET] Diet 02/17/17 Dinner Ordered Acetaminophen [Tylenol Extra Strength] Med 02/17/17 20:00 Ordered 1,000 mg PO TID Calcium Carb & Citrate/Vit D3 [Calcium + D3 ER Tablet] Med 02/17/17 20:00 Ordered 1 tab PO BID Carvedilol [Coreg] Med 02/17/17 18:00 Ordered 3.125 mg PO BIDMEALS Ferrous Sulfate Med 02/17/17 20:00 Ordered 325 mg PO BID Fluticasone Propionate [Flonase] Med 02/18/17 08:00 Ordered 2 spray NASBOTH DAILY Furosemide [Lasix] Med 02/18/17 08:00 Ordered 20 mg PO DAILY Glucosamine Sulfate/Msm [MSM-Glucosamine 250-250 MG] Med 02/17/17 20:00 Ordered 1 each PO BID HYDROmorphone [Dilaudid] Med 02/17/17 15:10 Ordered 2 mg PO Q4HR PRN LORazepam Med 02/17/17 15:10 Ordered 1 mg PO BID PRN Lactulose [Cephulac] Med 02/17/17 20:00 Ordered 20 gm PO BID Ondansetron [Zofran ODT] Med 02/17/17 15:10 Ordered 1 tab PO Q4H PRN Pregabalin [Lyrica] Med 02/17/17 20:00 Ordered 50 mg PO TID Sertraline [Zoloft] Med 02/18/17 08:00 Ordered 100 mg PO DAILY Simvastatin [Zocor] Med 02/17/17 20:00 Ordered 20 mg PO BEDTIME rOPINIRole [Requip] Med 02/17/17 20:00 Ordered 1.5 mg PO BEDTIME tiZANidine HCl [Zanaflex] Med 02/17/17 20:00 Ordered 1 mg PO TID Resuscitation Status Routine Resus Stat 02/17/17 14:59 Ordered Medication Orders Acetaminophen (Tylenol Extra Strength) 1,000 mg PO TID [facility] Carvedilol (Coreg) 3.125 mg PO BIDMEALS [facility] Ferrous Sulfate (Ferrous Sulfate) 325 mg PO BID [facility] Furosemide (Lasix) 20 mg PO DAILY [facility] Hydromorphone HCl (Dilaudid) 2 mg PO Q4HR PRN PRN Reason: Pain Lactulose (Cephulac) 20 gm PO BID [facility] Non-Formulary Medication (Tizanidine Hcl [Zanaflex]) 1 mg PO TID [facility] Non-Formulary Medication (Calcium Carb & Citrate/Vit D3 [Calcium + D3 Er Tablet] ) 1 tab PO BID [facility] Non-Formulary Medication (Fluticasone Propionate [Flonase]) 2 spray NASBOTH DAILY [facility] Non-Formulary Medication (Lorazepam) 1 mg PO BID PRN PRN Reason: Anxiety Non-Formulary Medication (Glucosamine Sulfate/Msm [Msm-Glucosamine 250-250 Mg]) 1 each PO BID [facility] Assessment/Plan Comment:: 1. S/P cervical spinal fusion - See above. Chronic Medical Conditions: 2. Hypertension 3. Hyperlipidemia 4. Restless Leg Syndrome 5. Depression 6. Seasonal Allergies 7. DJD 8. Obesity - ASA will be held until I can get clarification given patient report this is to be held. - Will also clarify need for VTE prophylaxis as well. - Otherwise, continue medications as per hospital summary. Patient is full code. LOS will be determined by PT and rehabilitation course.
[2017-02-17] MEDS: Fluticasone Propionate Nasal Spray 16 GM Bottle**OWN MED NASBOTH SCH (17:35)
[2017-02-17] MEDS: Carvedilol 3.125 MG Tab PO SCH (17:49)
[2017-02-17] MEDS: Ferrous Sulfate 325 MG Tab PO SCH (17:49)
[2017-02-17] MEDS: Acetaminophen 500 MG Tab PO SCH ×2 (18:24→22:27)
[2017-02-17] MEDS ORDERED: MSM PO SCH (20:00)
[2017-02-17] MEDS ORDERED: GLUCOSAMINE SULFATE PO SCH (20:00)
[2017-02-17] MEDS ORDERED: [UNRECOGNIZED DRUG - OTHER] PO SCH (20:00)
[2017-02-17] MEDS: rOPINIRole 0.5 MG Tab PO SCH (21:28)
[2017-02-17] MEDS: Pregabalin 50 MG Cap PO SCH (21:28)
[2017-02-17] MEDS: Simvastatin 20 MG Tab PO SCH (21:28)
[2017-02-17] MEDS: Calcium Citrate/Vitamin D3 315 MG-250 Unit Tab PO SCH (21:28)
[2017-02-17] MEDS: tiZANidine 4 MG Tab PO SCH (21:28)
[2017-02-17] MEDS: Lactulose Soln 10 GM/15 ML 30 ML UD Cup PO SCH (21:29)
[2017-02-18] MEDS: Acetaminophen 500 MG Tab PO SCH ×3 (07:40→22:02)
[2017-02-18] MEDS: tiZANidine 4 MG Tab PO SCH ×3 (07:41→22:01)
[2017-02-18] MEDS: Calcium Citrate/Vitamin D3 315 MG-250 Unit Tab PO SCH ×2 (07:41→22:01)
[2017-02-18] MEDS: Furosemide 20 MG Tab PO SCH (07:56)
[2017-02-18] MEDS: Sertraline 100 MG Tab PO SCH (07:56)
[2017-02-18] MEDS: Pregabalin 50 MG Cap PO SCH ×3 (07:56→22:02)
[2017-02-18] MEDS: Carvedilol 3.125 MG Tab PO SCH ×2 (07:56→17:28)
[2017-02-18] MEDS: Fluticasone Propionate Nasal Spray 16 GM Bottle**OWN MED NASBOTH SCH (07:57)
[2017-02-18] MEDS: Lactulose Soln 10 GM/15 ML 30 ML UD Cup PO SCH ×2 (07:57→22:00)
[2017-02-18] MEDS: Ferrous Sulfate 325 MG Tab PO SCH (07:57)
[2017-02-18] MEDS ORDERED: Ferrous Sulfate Liq 300 MG/5 ML Cup PO SCH (09:45)
[2017-02-18] MEDS ORDERED: Bisacodyl 10 MG Supp RECTAL PRN (10:01)
--- NOTE | 2017-02-18 10:02 | PCM.SN ---
- Free Text/Narrative Note: [place] back from providers in [place] to start the ASA. Discussed with patient and she declines. They stated the need for lovenox is dependent on mobility. She is still spending quite a bit of time in bed; therefore, I would recommend continuing the lovenox at this time. The patient agrees and the orders were placed. She also does not want to take the dilaudid; therefore, will switch this to [place] at her request. She also wants a suppository, which will be ordered as well.
[2017-02-18] MEDS: Enoxaparin 40 MG/0.4 ML Syringe SUBCUT SCH (11:00)
[2017-02-18] MEDS: Acetaminophen/HYDROcodone 325-10 MG Tab PO PRN (15:36)
[2017-02-18] MEDS: Ferrous Sulfate Liq 300 MG/5 ML Cup PO SCH (22:00)
[2017-02-18] MEDS: rOPINIRole 0.5 MG Tab PO SCH (22:01)
[2017-02-18] MEDS: Nitrofurantoin Monohydrate/Macrocrystalline 100 MG Cap PO SCH (22:01)
[2017-02-18] MEDS: Simvastatin 20 MG Tab PO SCH (22:03)
[2017-02-19] MEDS: Acetaminophen/HYDROcodone 325-10 MG Tab PO PRN ×2 (01:53→16:12)
[2017-02-19] MEDS: Sertraline 100 MG Tab PO SCH (08:45)
[2017-02-19] MEDS: Enoxaparin 40 MG/0.4 ML Syringe SUBCUT SCH (08:45)
[2017-02-19] MEDS: Calcium Citrate/Vitamin D3 315 MG-250 Unit Tab PO SCH ×2 (08:45→20:16)
[2017-02-19] MEDS: Lactulose Soln 10 GM/15 ML 30 ML UD Cup PO SCH ×2 (08:45→20:14)
[2017-02-19] MEDS: Ferrous Sulfate Liq 300 MG/5 ML Cup PO SCH ×2 (08:45→20:14)
[2017-02-19] MEDS: Furosemide 20 MG Tab PO SCH (08:45)
[2017-02-19] MEDS: Pregabalin 50 MG Cap PO SCH ×3 (08:46→20:16)
[2017-02-19] MEDS: tiZANidine 4 MG Tab PO SCH ×3 (08:46→20:17)
[2017-02-19] MEDS: Carvedilol 3.125 MG Tab PO SCH ×2 (08:46→17:53)
[2017-02-19] MEDS: Acetaminophen 500 MG Tab PO SCH ×3 (08:46→20:16)
[2017-02-19] MEDS: Nitrofurantoin Monohydrate/Macrocrystalline 100 MG Cap PO SCH ×2 (08:46→20:16)
[2017-02-19] MEDS: Fluticasone Propionate Nasal Spray 16 GM Bottle**OWN MED NASBOTH SCH (08:54)
[2017-02-19] MEDS: rOPINIRole 0.5 MG Tab PO SCH (20:15)
[2017-02-19] MEDS: Simvastatin 20 MG Tab PO SCH (20:16)
--- NOTE | 2017-02-19 22:30 | PCM.SN ---
- Free Text/Narrative Note: Called by nursing staff to assess patient due to change in neurologic symptoms. Patient sustained a fall earlier today due to bilateral leg weakness. However, she has felt all day that she was leaning toward the left. She has also felt that her left had was more numb than usual and that her material carrier strength was weaker on the left side. She denies any increase in neck pain. She did not have any headache. She has had similar symptoms in her left hand at times. Nothing today is different than her usual. Alert and oriented; in no acute distress. CN 2-12 intact. Strength 5/5 and symmetric in the upper extremities with the exception of material carrier strength in the left 4/5 compared to 5/5 in the right. Strength 3/5 and symmetric in the legs. Sensation is diffusely intact but is diminished in the left hand compared to the right. Biceps reflexes 3+ and symmetric; patellar reflexes absent in the setting of previous bilateral TKA. I suspect this is related to fatigue after transition here. I do not suspect any complication of her surgery based on the limitation of symptoms basically to her hand. This would also not be typical for a stroke or ICH. I did speak with the patient and her son and did offer transfer to [place] due to the MRI capability there; however, they decline and are comfortable doing a CT head and and C-spine x-rays here to exclude ICH and ensure stability of hardware. We will treat as indicated for any abnormal results; otherwise, we will observe overnight. She cannot be out of bed at all today and needs to notify nursing for any change in symptoms. Otherwise, I will reassess tomorrow.
--- NOTE | 2017-02-20 08:27 | PCM.SN ---
- Free Text/Narrative Note: Imaging studies last night unremarkable. Patient feels better this morning. Numbness is improved. Strength in the left hand is improved but not quite symmetric with the right side. No further evaluation at this time. PT to see the patient today.
[2017-02-20] MEDS: Ondansetron 4 MG Tab.DIS PO PRN (08:58)
[2017-02-20] MEDS: Calcium Citrate/Vitamin D3 315 MG-250 Unit Tab PO SCH ×2 (08:58→21:33)
[2017-02-20] MEDS: tiZANidine 4 MG Tab PO SCH ×3 (08:58→21:35)
[2017-02-20] MEDS: Pregabalin 50 MG Cap PO SCH ×3 (08:58→21:33)
[2017-02-20] MEDS: Lactulose Soln 10 GM/15 ML 30 ML UD Cup PO SCH ×2 (08:58→21:40)
[2017-02-20] MEDS: Ferrous Sulfate Liq 300 MG/5 ML Cup PO SCH ×2 (08:58→21:41)
[2017-02-20] MEDS: Sertraline 100 MG Tab PO SCH (08:59)
[2017-02-20] MEDS: Acetaminophen 500 MG Tab PO SCH ×3 (08:59→21:36)
[2017-02-20] MEDS: Nitrofurantoin Monohydrate/Macrocrystalline 100 MG Cap PO SCH ×2 (08:59→21:34)
[2017-02-20] MEDS: Carvedilol 3.125 MG Tab PO SCH ×2 (08:59→17:17)
[2017-02-20] MEDS: Enoxaparin 40 MG/0.4 ML Syringe SUBCUT SCH (08:59)
[2017-02-20] MEDS: Furosemide 20 MG Tab PO SCH (08:59)
[2017-02-20] MEDS: Fluticasone Propionate Nasal Spray 16 GM Bottle**OWN MED NASBOTH SCH (08:59)
[2017-02-20] MEDS: Simvastatin 20 MG Tab PO SCH (21:34)
[2017-02-20] MEDS: rOPINIRole 0.5 MG Tab PO SCH (21:34)
[2017-02-20] MEDS: Acetaminophen/HYDROcodone 325-10 MG Tab PO PRN (23:18)
[2017-02-21] MEDS: Enoxaparin 40 MG/0.4 ML Syringe SUBCUT SCH (07:44)
[2017-02-21] MEDS: Nitrofurantoin Monohydrate/Macrocrystalline 100 MG Cap PO SCH ×2 (07:44→20:18)
[2017-02-21] MEDS: Lactulose Soln 10 GM/15 ML 30 ML UD Cup PO SCH ×2 (07:44→20:20)
[2017-02-21] MEDS: Sertraline 100 MG Tab PO SCH (07:44)
[2017-02-21] MEDS: Pregabalin 50 MG Cap PO SCH ×3 (07:44→20:17)
[2017-02-21] MEDS: Calcium Citrate/Vitamin D3 315 MG-250 Unit Tab PO SCH ×2 (07:44→20:16)
[2017-02-21] MEDS: Ferrous Sulfate Liq 300 MG/5 ML Cup PO SCH ×2 (07:44→20:20)
[2017-02-21] MEDS: tiZANidine 4 MG Tab PO SCH ×3 (07:44→20:17)
[2017-02-21] MEDS: Fluticasone Propionate Nasal Spray 16 GM Bottle**OWN MED NASBOTH SCH (07:45)
[2017-02-21] MEDS: Furosemide 20 MG Tab PO SCH (07:45)
[2017-02-21] MEDS: Acetaminophen 500 MG Tab PO SCH ×3 (07:45→20:18)
[2017-02-21] MEDS: Carvedilol 3.125 MG Tab PO SCH ×2 (07:45→17:22)
[2017-02-21] MEDS: Dextran 70/Hypromellose/PF Ophth Soln 0.9 ML UD EYEBOTH PRN (17:22)
[2017-02-21] MEDS: rOPINIRole 0.5 MG Tab PO SCH (20:16)
[2017-02-21] MEDS: Simvastatin 20 MG Tab PO SCH (20:17)
[2017-02-21] MEDS: Acetaminophen/HYDROcodone 325-10 MG Tab PO PRN (22:29)
[2017-02-22] MEDS: Calcium Citrate/Vitamin D3 315 MG-250 Unit Tab PO SCH ×2 (08:31→20:35)
[2017-02-22] MEDS: Lactulose Soln 10 GM/15 ML 30 ML UD Cup PO SCH ×2 (08:31→20:38)
[2017-02-22] MEDS: Carvedilol 3.125 MG Tab PO SCH ×2 (08:32→17:15)
[2017-02-22] MEDS: Ferrous Sulfate Liq 300 MG/5 ML Cup PO SCH ×2 (08:33→20:38)
[2017-02-22] MEDS: Fluticasone Propionate Nasal Spray 16 GM Bottle**OWN MED NASBOTH SCH (08:33)
[2017-02-22] MEDS: Furosemide 20 MG Tab PO SCH (08:33)
[2017-02-22] MEDS: Enoxaparin 40 MG/0.4 ML Syringe SUBCUT SCH (08:34)
[2017-02-22] MEDS: Pregabalin 50 MG Cap PO SCH ×3 (08:34→20:32)
[2017-02-22] MEDS: Nitrofurantoin Monohydrate/Macrocrystalline 100 MG Cap PO SCH ×2 (08:35→20:32)
[2017-02-22] MEDS: Acetaminophen 500 MG Tab PO SCH ×3 (08:35→20:36)
[2017-02-22] MEDS: tiZANidine 4 MG Tab PO SCH ×3 (08:37→20:34)
[2017-02-22] MEDS: Sertraline 100 MG Tab PO SCH (08:39)
[2017-02-22] MEDS: Dextran 70/Hypromellose/PF Ophth Soln 0.9 ML UD EYEBOTH PRN ×2 (08:40→20:59)
[2017-02-22] MEDS: Acetaminophen/HYDROcodone 325-10 MG Tab PO PRN ×2 (09:50→22:48)
[2017-02-22] MEDS: Simvastatin 20 MG Tab PO SCH (20:33)
[2017-02-22] MEDS: rOPINIRole 0.5 MG Tab PO SCH (20:33)
[2017-02-23] MEDS: Lactulose Soln 10 GM/15 ML 30 ML UD Cup PO SCH ×2 (08:38→19:13)
[2017-02-23] MEDS: Calcium Citrate/Vitamin D3 315 MG-250 Unit Tab PO SCH ×2 (08:38→21:35)
[2017-02-23] MEDS: Carvedilol 3.125 MG Tab PO SCH ×2 (08:39→17:21)
[2017-02-23] MEDS: Ferrous Sulfate Liq 300 MG/5 ML Cup PO SCH ×2 (08:40→21:35)
[2017-02-23] MEDS: Furosemide 20 MG Tab PO SCH (08:41)
[2017-02-23] MEDS: Enoxaparin 40 MG/0.4 ML Syringe SUBCUT SCH (08:42)
[2017-02-23] MEDS: Pregabalin 50 MG Cap PO SCH ×3 (08:43→21:35)
[2017-02-23] MEDS: Nitrofurantoin Monohydrate/Macrocrystalline 100 MG Cap PO SCH (08:44)
[2017-02-23] MEDS: Acetaminophen 500 MG Tab PO SCH ×3 (08:44→21:35)
[2017-02-23] MEDS: tiZANidine 4 MG Tab PO SCH ×3 (08:46→21:36)
[2017-02-23] MEDS: Sertraline 100 MG Tab PO SCH (08:48)
[2017-02-23] MEDS: Dextran 70/Hypromellose/PF Ophth Soln 0.9 ML UD EYEBOTH PRN ×2 (08:49→21:48)
[2017-02-23] MEDS: Fluticasone Propionate Nasal Spray 16 GM Bottle**OWN MED NASBOTH SCH (09:18)
[2017-02-23] MEDS: rOPINIRole 0.5 MG Tab PO SCH (21:35)
[2017-02-23] MEDS: Acetaminophen/HYDROcodone 325-10 MG Tab PO PRN (21:38)
[2017-02-23] MEDS: Simvastatin 20 MG Tab PO SCH (21:38)
[2017-02-24] MEDS: Sertraline 100 MG Tab PO SCH (07:49)
[2017-02-24] MEDS: Carvedilol 3.125 MG Tab PO SCH ×2 (07:49→17:38)
[2017-02-24] MEDS: Ferrous Sulfate Liq 300 MG/5 ML Cup PO SCH ×2 (07:49→19:25)
[2017-02-24] MEDS: Acetaminophen 500 MG Tab PO SCH ×3 (07:49→19:26)
[2017-02-24] MEDS: Calcium Citrate/Vitamin D3 315 MG-250 Unit Tab PO SCH ×2 (07:50→19:27)
[2017-02-24] MEDS: tiZANidine 4 MG Tab PO SCH ×3 (07:50→19:28)
[2017-02-24] MEDS: Furosemide 20 MG Tab PO SCH (07:50)
[2017-02-24] MEDS: Pregabalin 50 MG Cap PO SCH ×3 (07:50→19:27)
[2017-02-24] MEDS: Enoxaparin 40 MG/0.4 ML Syringe SUBCUT SCH (07:51)
[2017-02-24] MEDS: Lactulose Soln 10 GM/15 ML 30 ML UD Cup PO SCH ×2 (07:51→19:25)
[2017-02-24] MEDS: Fluticasone Propionate Nasal Spray 16 GM Bottle**OWN MED NASBOTH SCH (07:51)
[2017-02-24] MEDS: Dextran 70/Hypromellose/PF Ophth Soln 0.9 ML UD EYEBOTH PRN ×2 (07:53→17:38)
[2017-02-24] MEDS: rOPINIRole 0.5 MG Tab PO SCH (19:25)
[2017-02-24] MEDS: Simvastatin 20 MG Tab PO SCH (19:29)
[2017-02-24] MEDS: Acetaminophen/HYDROcodone 325-10 MG Tab PO PRN (22:34)
[2017-02-25] MEDS: LORazepam 1 MG Tab PO PRN ×2 (05:13→22:13)
[2017-02-25] MEDS: Fluticasone Propionate Nasal Spray 16 GM Bottle**OWN MED NASBOTH SCH (07:43)
[2017-02-25] MEDS: Furosemide 20 MG Tab PO SCH (07:43)
[2017-02-25] MEDS: tiZANidine 4 MG Tab PO SCH ×3 (07:44→19:35)
[2017-02-25] MEDS: Pregabalin 50 MG Cap PO SCH ×3 (07:44→19:35)
[2017-02-25] MEDS: Carvedilol 3.125 MG Tab PO SCH ×2 (07:44→17:31)
[2017-02-25] MEDS: Acetaminophen 500 MG Tab PO SCH ×3 (07:44→19:33)
[2017-02-25] MEDS: Sertraline 100 MG Tab PO SCH (07:44)
[2017-02-25] MEDS: Calcium Citrate/Vitamin D3 315 MG-250 Unit Tab PO SCH ×2 (07:44→19:35)
[2017-02-25] MEDS: Lactulose Soln 10 GM/15 ML 30 ML UD Cup PO SCH ×2 (07:45→19:33)
[2017-02-25] MEDS: Ferrous Sulfate Liq 300 MG/5 ML Cup PO SCH ×2 (07:45→19:33)
[2017-02-25] MEDS: Enoxaparin 40 MG/0.4 ML Syringe SUBCUT SCH (07:45)
[2017-02-25] MEDS: Calcium Carbonate 750 MG Tab.Chew PO PRN (19:32)
[2017-02-25] MEDS: rOPINIRole 0.5 MG Tab PO SCH (19:34)
[2017-02-25] MEDS: Simvastatin 20 MG Tab PO SCH (19:36)
[2017-02-25] MEDS: Ondansetron 4 MG Tab.DIS PO PRN (20:41)
[2017-02-25] MEDS: Acetaminophen/HYDROcodone 325-10 MG Tab PO PRN (22:12)
[2017-02-26] MEDS: Ferrous Sulfate Liq 300 MG/5 ML Cup PO SCH ×2 (07:56→19:40)
[2017-02-26] MEDS: tiZANidine 4 MG Tab PO SCH ×3 (07:56→19:41)
[2017-02-26] MEDS: Carvedilol 3.125 MG Tab PO SCH ×2 (07:56→17:30)
[2017-02-26] MEDS: Lactulose Soln 10 GM/15 ML 30 ML UD Cup PO SCH ×2 (07:56→19:40)
[2017-02-26] MEDS: Fluticasone Propionate Nasal Spray 16 GM Bottle**OWN MED NASBOTH SCH (07:56)
[2017-02-26] MEDS: Acetaminophen 500 MG Tab PO SCH ×3 (07:57→19:39)
[2017-02-26] MEDS: Calcium Citrate/Vitamin D3 315 MG-250 Unit Tab PO SCH ×2 (07:57→19:40)
[2017-02-26] MEDS: Furosemide 20 MG Tab PO SCH (07:57)
[2017-02-26] MEDS: Sertraline 100 MG Tab PO SCH (07:57)
[2017-02-26] MEDS: Pregabalin 50 MG Cap PO SCH ×3 (07:57→19:40)
[2017-02-26] MEDS: Dextran 70/Hypromellose/PF Ophth Soln 0.9 ML UD EYEBOTH PRN (07:58)
[2017-02-26] MEDS: Enoxaparin 40 MG/0.4 ML Syringe SUBCUT SCH (07:58)
[2017-02-26] MEDS: rOPINIRole 0.5 MG Tab PO SCH (19:38)
[2017-02-26] MEDS: Simvastatin 20 MG Tab PO SCH (19:40)
[2017-02-26] MEDS: LORazepam 1 MG Tab PO PRN (22:14)
[2017-02-26] MEDS: Acetaminophen/HYDROcodone 325-10 MG Tab PO PRN (22:14)
[2017-02-27] MEDS: Lactulose Soln 10 GM/15 ML 30 ML UD Cup PO SCH ×2 (08:44→20:23)
[2017-02-27] MEDS: Enoxaparin 40 MG/0.4 ML Syringe SUBCUT SCH (08:44)
[2017-02-27] MEDS: Acetaminophen 500 MG Tab PO SCH ×3 (08:45→20:23)
[2017-02-27] MEDS: Carvedilol 3.125 MG Tab PO SCH ×2 (08:45→17:08)
[2017-02-27] MEDS: Calcium Citrate/Vitamin D3 315 MG-250 Unit Tab PO SCH ×2 (08:45→20:24)
[2017-02-27] MEDS: Ferrous Sulfate Liq 300 MG/5 ML Cup PO SCH ×2 (08:45→20:23)
[2017-02-27] MEDS: Pregabalin 50 MG Cap PO SCH ×3 (08:45→20:24)
[2017-02-27] MEDS: Fluticasone Propionate Nasal Spray 16 GM Bottle**OWN MED NASBOTH SCH (08:45)
[2017-02-27] MEDS: Furosemide 20 MG Tab PO SCH (08:45)
[2017-02-27] MEDS: Sertraline 100 MG Tab PO SCH (08:45)
[2017-02-27] MEDS: tiZANidine 4 MG Tab PO SCH ×3 (09:58→20:23)
[2017-02-27] MEDS: Dextran 70/Hypromellose/PF Ophth Soln 0.9 ML UD EYEBOTH PRN (13:06)
[2017-02-27] MEDS: Simvastatin 20 MG Tab PO SCH (20:24)
[2017-02-27] MEDS: rOPINIRole 0.5 MG Tab PO SCH (20:24)
[2017-02-27] MEDS: LORazepam 1 MG Tab PO PRN (22:18)
[2017-02-27] MEDS: Acetaminophen/HYDROcodone 325-10 MG Tab PO PRN (22:18)
[2017-02-28] MEDS: Carvedilol 3.125 MG Tab PO SCH ×2 (08:44→17:49)
[2017-02-28] MEDS: Calcium Citrate/Vitamin D3 315 MG-250 Unit Tab PO SCH ×2 (08:44→20:17)
[2017-02-28] MEDS: Sertraline 100 MG Tab PO SCH (08:45)
[2017-02-28] MEDS: Pregabalin 50 MG Cap PO SCH ×3 (08:45→20:16)
[2017-02-28] MEDS: tiZANidine 4 MG Tab PO SCH ×3 (08:45→20:16)
[2017-02-28] MEDS: Furosemide 20 MG Tab PO SCH (08:45)
[2017-02-28] MEDS: Acetaminophen 500 MG Tab PO SCH ×3 (08:45→20:16)
[2017-02-28] MEDS: Enoxaparin 40 MG/0.4 ML Syringe SUBCUT SCH (08:46)
[2017-02-28] MEDS: Lactulose Soln 10 GM/15 ML 30 ML UD Cup PO SCH ×2 (08:46→20:15)
[2017-02-28] MEDS: Ferrous Sulfate Liq 300 MG/5 ML Cup PO SCH ×2 (08:46→20:15)
[2017-02-28] MEDS: Fluticasone Propionate Nasal Spray 16 GM Bottle**OWN MED NASBOTH SCH (08:49)
--- NOTE | 2017-02-28 16:36 | PCM.SN ---
- Free Text/Narrative Note: Visited patient today. She is concerned regarding some perineal itching over the past couple of days. She did get antibiotics previously and wonders if she has a yeast infection. Will do miconazole topical BID.
[2017-02-28] MEDS: Miconazole 2% Vaginal Crm 45 GM Tube TOP SCH (20:15)
[2017-02-28] MEDS: rOPINIRole 0.5 MG Tab PO SCH (20:16)
[2017-02-28] MEDS: Simvastatin 20 MG Tab PO SCH (20:16)
[2017-02-28] MEDS: Acetaminophen/HYDROcodone 325-10 MG Tab PO PRN (22:01)
[2017-02-28] MEDS: LORazepam 1 MG Tab PO PRN (23:06)
[2017-03-01] MEDS: Ferrous Sulfate Liq 300 MG/5 ML Cup PO SCH ×2 (07:54→21:25)
[2017-03-01] MEDS: Lactulose Soln 10 GM/15 ML 30 ML UD Cup PO SCH ×2 (07:54→21:25)
[2017-03-01] MEDS: Enoxaparin 40 MG/0.4 ML Syringe SUBCUT SCH (07:54)
[2017-03-01] MEDS: Acetaminophen 500 MG Tab PO SCH ×3 (07:55→21:27)
[2017-03-01] MEDS: Calcium Citrate/Vitamin D3 315 MG-250 Unit Tab PO SCH ×2 (07:56→21:26)
[2017-03-01] MEDS: Pregabalin 50 MG Cap PO SCH ×3 (07:57→21:26)
[2017-03-01] MEDS: tiZANidine 4 MG Tab PO SCH ×3 (07:57→21:26)
[2017-03-01] MEDS: Furosemide 20 MG Tab PO SCH (07:57)
[2017-03-01] MEDS: Sertraline 100 MG Tab PO SCH (07:58)
[2017-03-01] MEDS: Carvedilol 3.125 MG Tab PO SCH ×2 (07:58→17:50)
[2017-03-01] MEDS: Fluticasone Propionate Nasal Spray 16 GM Bottle**OWN MED NASBOTH SCH (08:00)
[2017-03-01] MEDS: Miconazole 2% Vaginal Crm 45 GM Tube TOP SCH ×2 (08:01→21:27)
[2017-03-01] MEDS: rOPINIRole 0.5 MG Tab PO SCH (21:26)
[2017-03-01] MEDS: LORazepam 1 MG Tab PO PRN (21:26)
[2017-03-01] MEDS: Acetaminophen/HYDROcodone 325-10 MG Tab PO PRN (21:27)
[2017-03-01] MEDS: Simvastatin 20 MG Tab PO SCH (21:27)
[2017-03-02] MEDS: Enoxaparin 40 MG/0.4 ML Syringe SUBCUT SCH (07:43)
[2017-03-02] MEDS: Carvedilol 3.125 MG Tab PO SCH ×2 (07:44→18:54)
[2017-03-02] MEDS: Ferrous Sulfate Liq 300 MG/5 ML Cup PO SCH ×2 (07:44→20:22)
[2017-03-02] MEDS: Furosemide 20 MG Tab PO SCH (07:44)
[2017-03-02] MEDS: Calcium Citrate/Vitamin D3 315 MG-250 Unit Tab PO SCH ×2 (07:44→20:21)
[2017-03-02] MEDS: Lactulose Soln 10 GM/15 ML 30 ML UD Cup PO SCH ×2 (07:44→20:22)
[2017-03-02] MEDS: Pregabalin 50 MG Cap PO SCH ×3 (07:45→20:19)
[2017-03-02] MEDS: tiZANidine 4 MG Tab PO SCH ×3 (07:45→20:21)
[2017-03-02] MEDS: Sertraline 100 MG Tab PO SCH (07:46)
[2017-03-02] MEDS: Acetaminophen 500 MG Tab PO SCH ×3 (07:46→20:19)
[2017-03-02] MEDS: Fluticasone Propionate Nasal Spray 16 GM Bottle**OWN MED NASBOTH SCH (07:47)
[2017-03-02] MEDS: Miconazole 2% Vaginal Crm 45 GM Tube TOP SCH ×2 (07:47→20:25)
[2017-03-02] MEDS: LORazepam 1 MG Tab PO PRN (20:19)
[2017-03-02] MEDS: rOPINIRole 0.5 MG Tab PO SCH (20:21)
[2017-03-02] MEDS: Simvastatin 20 MG Tab PO SCH (20:22)
[2017-03-03] MEDS: Acetaminophen/HYDROcodone 325-10 MG Tab PO PRN (03:52)
[2017-03-03] MEDS: Calcium Carbonate 750 MG Tab.Chew PO PRN ×2 (06:02→20:33)
[2017-03-03] MEDS: Ondansetron 4 MG Tab.DIS PO PRN (07:52)
[2017-03-03] MEDS: Miconazole 2% Vaginal Crm 45 GM Tube TOP SCH ×2 (07:58→20:32)
[2017-03-03] MEDS ORDERED: FORTEO SQ SCH (08:00)
[2017-03-03] MEDS: Enoxaparin 40 MG/0.4 ML Syringe SUBCUT SCH (10:28)
[2017-03-03] MEDS: Ferrous Sulfate Liq 300 MG/5 ML Cup PO SCH ×2 (10:28→20:31)
[2017-03-03] MEDS: Furosemide 20 MG Tab PO SCH (10:29)
[2017-03-03] MEDS: Acetaminophen 500 MG Tab PO SCH ×3 (10:29→20:31)
[2017-03-03] MEDS: Carvedilol 3.125 MG Tab PO SCH ×2 (10:29→17:57)
[2017-03-03] MEDS: Lactulose Soln 10 GM/15 ML 30 ML UD Cup PO SCH ×2 (10:29→20:31)
[2017-03-03] MEDS: Calcium Citrate/Vitamin D3 315 MG-250 Unit Tab PO SCH ×2 (10:30→20:29)
[2017-03-03] MEDS: Sertraline 100 MG Tab PO SCH (10:30)
[2017-03-03] MEDS: Cholecalciferol (Vitamin D3) 1,000 Unit Tab PO SCH (10:30)
[2017-03-03] MEDS: tiZANidine 4 MG Tab PO SCH ×3 (10:30→20:31)
[2017-03-03] MEDS: Pregabalin 50 MG Cap PO SCH ×3 (10:30→20:30)
[2017-03-03] MEDS: Fluticasone Propionate Nasal Spray 16 GM Bottle**OWN MED NASBOTH SCH (10:32)
[2017-03-03] MEDS: FORTEO SUBCUT SCH (10:38)
[2017-03-03] MEDS: rOPINIRole 0.5 MG Tab PO SCH (20:29)
[2017-03-03] MEDS: Simvastatin 20 MG Tab PO SCH (20:30)
[2017-03-04] MEDS: Acetaminophen 500 MG Tab PO SCH ×4 (07:03→21:13)
[2017-03-04] MEDS: Fluticasone Propionate Nasal Spray 16 GM Bottle**OWN MED NASBOTH SCH (08:52)
[2017-03-04] MEDS: Lactulose Soln 10 GM/15 ML 30 ML UD Cup PO SCH ×2 (08:52→20:16)
[2017-03-04] MEDS: Enoxaparin 40 MG/0.4 ML Syringe SUBCUT SCH (08:52)
[2017-03-04] MEDS: Ferrous Sulfate Liq 300 MG/5 ML Cup PO SCH ×2 (08:52→20:15)
[2017-03-04] MEDS: FORTEO SUBCUT SCH (08:52)
[2017-03-04] MEDS: CHOLECALCIFEROL PO SCH (08:53)
[2017-03-04] MEDS: Miconazole 2% Vaginal Crm 45 GM Tube TOP SCH ×2 (08:53→20:19)
[2017-03-04] MEDS: Sertraline 100 MG Tab PO SCH (08:54)
[2017-03-04] MEDS: Carvedilol 3.125 MG Tab PO SCH ×2 (08:54→17:35)
[2017-03-04] MEDS: Furosemide 20 MG Tab PO SCH (08:54)
[2017-03-04] MEDS: Calcium Citrate/Vitamin D3 315 MG-250 Unit Tab PO SCH ×2 (08:54→20:17)
[2017-03-04] MEDS: Pregabalin 50 MG Cap PO SCH ×4 (08:54→21:13)
[2017-03-04] MEDS: tiZANidine 4 MG Tab PO SCH ×4 (08:54→21:13)
[2017-03-04] MEDS: Cholecalciferol (Vitamin D3) 1,000 Unit Tab PO SCH (08:57)
[2017-03-04] MEDS: rOPINIRole 0.5 MG Tab PO SCH (20:17)
[2017-03-04] MEDS: Simvastatin 20 MG Tab PO SCH (20:18)
[2017-03-04] MEDS: LORazepam 1 MG Tab PO PRN (20:19)
[2017-03-05] MEDS: Miconazole 2% Vaginal Crm 45 GM Tube TOP SCH ×2 (08:52→21:16)
[2017-03-05] MEDS: FORTEO SUBCUT SCH (08:53)
[2017-03-05] MEDS: Enoxaparin 40 MG/0.4 ML Syringe SUBCUT SCH (08:53)
[2017-03-05] MEDS: Fluticasone Propionate Nasal Spray 16 GM Bottle**OWN MED NASBOTH SCH (08:53)
[2017-03-05] MEDS: CHOLECALCIFEROL PO SCH (08:53)
[2017-03-05] MEDS: Lactulose Soln 10 GM/15 ML 30 ML UD Cup PO SCH ×2 (08:53→21:05)
[2017-03-05] MEDS: Ferrous Sulfate Liq 300 MG/5 ML Cup PO SCH (08:53)
[2017-03-05] MEDS: Carvedilol 3.125 MG Tab PO SCH ×2 (08:54→17:36)
[2017-03-05] MEDS: Calcium Citrate/Vitamin D3 315 MG-250 Unit Tab PO SCH ×2 (08:54→21:06)
[2017-03-05] MEDS: Sertraline 100 MG Tab PO SCH (08:55)
[2017-03-05] MEDS: Furosemide 20 MG Tab PO SCH (08:55)
[2017-03-05] MEDS: tiZANidine 4 MG Tab PO SCH ×3 (08:55→21:07)
[2017-03-05] MEDS: Pregabalin 50 MG Cap PO SCH ×3 (08:56→21:07)
[2017-03-05] MEDS: Acetaminophen 500 MG Tab PO SCH ×3 (08:56→21:06)
[2017-03-05] MEDS: Ferrous Sulfate 325 MG Tab PO SCH (17:35)
[2017-03-05] MEDS: rOPINIRole 0.5 MG Tab PO SCH (21:06)
[2017-03-05] MEDS: Simvastatin 20 MG Tab PO SCH (21:06)
[2017-03-05] MEDS: Dextran 70/Hypromellose/PF Ophth Soln 0.9 ML UD EYEBOTH PRN (21:07)
[2017-03-05] MEDS: LORazepam 1 MG Tab PO PRN (21:07)
[2017-03-06] MEDS: Calcium Citrate/Vitamin D3 315 MG-250 Unit Tab PO SCH ×2 (08:34→21:04)
[2017-03-06] MEDS: Lactulose Soln 10 GM/15 ML 30 ML UD Cup PO SCH ×2 (08:34→21:06)
[2017-03-06] MEDS: Sertraline 100 MG Tab PO SCH (08:35)
[2017-03-06] MEDS: Furosemide 20 MG Tab PO SCH (08:35)
[2017-03-06] MEDS: tiZANidine 4 MG Tab PO SCH ×3 (08:35→21:12)
[2017-03-06] MEDS: Pregabalin 50 MG Cap PO SCH ×3 (08:35→21:12)
[2017-03-06] MEDS: Carvedilol 3.125 MG Tab PO SCH ×2 (08:36→17:46)
[2017-03-06] MEDS: Acetaminophen 500 MG Tab PO SCH ×3 (08:36→21:13)
[2017-03-06] MEDS: Fluticasone Propionate Nasal Spray 16 GM Bottle**OWN MED NASBOTH SCH (08:37)
[2017-03-06] MEDS: Ferrous Sulfate 325 MG Tab PO SCH ×2 (08:37→17:45)
[2017-03-06] MEDS: Enoxaparin 40 MG/0.4 ML Syringe SUBCUT SCH (08:38)
[2017-03-06] MEDS: CHOLECALCIFEROL PO SCH (08:38)
[2017-03-06] MEDS: FORTEO SUBCUT SCH (08:43)
[2017-03-06] MEDS: Miconazole 2% Vaginal Crm 45 GM Tube TOP SCH ×2 (08:43→21:07)
[2017-03-06] MEDS: rOPINIRole 0.5 MG Tab PO SCH (21:05)
[2017-03-06] MEDS: Simvastatin 20 MG Tab PO SCH (21:06)
[2017-03-06] MEDS: LORazepam 1 MG Tab PO PRN (21:11)
[2017-03-06] MEDS: Dextran 70/Hypromellose/PF Ophth Soln 0.9 ML UD EYEBOTH PRN (21:18)
[2017-03-07] MEDS: Acetaminophen 500 MG Tab PO SCH ×3 (08:19→21:40)
[2017-03-07] MEDS: Sertraline 100 MG Tab PO SCH (08:20)
[2017-03-07] MEDS: Ferrous Sulfate 325 MG Tab PO SCH ×2 (08:20→17:36)
[2017-03-07] MEDS: tiZANidine 4 MG Tab PO SCH ×3 (08:21→21:37)
[2017-03-07] MEDS: Furosemide 20 MG Tab PO SCH (08:21)
[2017-03-07] MEDS: Miconazole 2% Vaginal Crm 45 GM Tube TOP SCH ×2 (08:22→21:40)
[2017-03-07] MEDS: Enoxaparin 40 MG/0.4 ML Syringe SUBCUT SCH (08:23)
[2017-03-07] MEDS: Carvedilol 3.125 MG Tab PO SCH ×2 (08:24→17:36)
[2017-03-07] MEDS: Pregabalin 50 MG Cap PO SCH ×3 (08:25→21:38)
[2017-03-07] MEDS: Fluticasone Propionate Nasal Spray 16 GM Bottle**OWN MED NASBOTH SCH (08:26)
[2017-03-07] MEDS: Lactulose Soln 10 GM/15 ML 30 ML UD Cup PO SCH ×2 (08:27→21:35)
[2017-03-07] MEDS: CHOLECALCIFEROL PO SCH (08:27)
[2017-03-07] MEDS: Calcium Citrate/Vitamin D3 315 MG-250 Unit Tab PO SCH ×2 (08:28→21:37)
[2017-03-07] MEDS: FORTEO SUBCUT SCH (08:33)
[2017-03-07] MEDS: rOPINIRole 0.5 MG Tab PO SCH (21:37)
[2017-03-07] MEDS: Simvastatin 20 MG Tab PO SCH (21:39)
[2017-03-07] MEDS: LORazepam 1 MG Tab PO PRN (21:39)
[2017-03-07] MEDS: Dextran 70/Hypromellose/PF Ophth Soln 0.9 ML UD EYEBOTH PRN (21:41)
[2017-03-08] MEDS: Enoxaparin 40 MG/0.4 ML Syringe SUBCUT SCH (07:39)
[2017-03-08] MEDS: Lactulose Soln 10 GM/15 ML 30 ML UD Cup PO SCH ×2 (07:39→21:20)
[2017-03-08] MEDS: Ferrous Sulfate 325 MG Tab PO SCH ×2 (07:40→17:55)
[2017-03-08] MEDS: Sertraline 100 MG Tab PO SCH (07:40)
[2017-03-08] MEDS: Furosemide 20 MG Tab PO SCH (07:40)
[2017-03-08] MEDS: Calcium Citrate/Vitamin D3 315 MG-250 Unit Tab PO SCH ×2 (07:41→21:21)
[2017-03-08] MEDS: Pregabalin 50 MG Cap PO SCH ×3 (07:41→21:21)
[2017-03-08] MEDS: Carvedilol 3.125 MG Tab PO SCH ×2 (07:41→17:55)
[2017-03-08] MEDS: tiZANidine 4 MG Tab PO SCH ×3 (07:42→21:20)
[2017-03-08] MEDS: Acetaminophen 500 MG Tab PO SCH ×3 (07:43→21:22)
[2017-03-08] MEDS: CHOLECALCIFEROL PO SCH (07:44)
[2017-03-08] MEDS: FORTEO SUBCUT SCH (07:45)
[2017-03-08] MEDS: Fluticasone Propionate Nasal Spray 16 GM Bottle**OWN MED NASBOTH SCH (07:46)
[2017-03-08] MEDS: Miconazole 2% Vaginal Crm 45 GM Tube TOP SCH ×2 (07:47→21:22)
--- NOTE | 2017-03-08 09:32 | PCM.PN ---
- General Info Date of Service: 03/08/17 Subjective Update: Patient feels her strength is improving; PT is less certain of this. She is wondering if the lovenox can be stopped now that she is moving around better. She otherwise has no concerns. - Review of Systems General: Reports: No Symptoms HEENT: Reports: no symptoms Pulmonary: Reports: no symptoms Cardiovascular: Reports: No Symptoms Gastrointestinal: Reports: No symptoms Genitourinary: Reports: no symptoms Musculoskeletal: Reports: no symptoms Skin: Reports: no symptoms Neurological: Reports: No Symptoms - Patient Data Vitals - most recent: Last Vital Signs Temp 36.6 C 03/08/17 06:00 Pulse 88 03/08/17 07:41 Resp 19 03/08/17 06:00 BP 138/84 03/08/17 07:41 Pulse Ox 94 L 03/08/17 06:00 Weight - most recent: 82.282 kg Med Orders - Current: Current Medications Acetaminophen (Tylenol Extra Strength) 1,000 mg PO TID@0800,1400,2100 [facility] Last Admin: 03/08/17 07:43 Dose: 1,000 mg Hydrocodone Bitart/Acetaminophen ([place] 325-10 Mg) 1 tab PO Q8H PRN PRN Reason: Pain Last Admin: 03/03/17 03:52 Dose: 1 tab Artificial Tears (Tears Naturale Free) 1 each EYEBOTH BID PRN PRN Reason: Dry Eyes Last Admin: 03/07/17 21:41 Dose: 1 each Bisacodyl (Dulcolax) 10 mg RECTAL DAILY PRN PRN Reason: Constipation Calcium Carbonate/Glycine (Tums Extra Strength) 750 mg PO Q2H PRN PRN Reason: Dyspepsia Last Admin: 03/03/17 20:33 Dose: 750 mg Calcium Citrate (Calcium Citrate + D) 1 tab PO BID [facility] Last Admin: 03/08/17 07:41 Dose: 1 tab Carvedilol (Coreg) 3.125 mg PO BIDMEALS [facility] Last Admin: 03/08/17 07:41 Dose: 3.125 mg Cholecalciferol (Vitamin D3) 2,000 units PO DAILY [facility] Ferrous Sulfate (Ferrous Sulfate) 325 mg PO BIDMEALS [facility] Last Admin: 03/08/17 07:40 Dose: 325 mg Fluticasone Propionate (Flonase) 0 gm NASBOTH DAILY [facility] Last Admin: 03/08/17 07:46 Dose: 2 spray Furosemide (Lasix) 20 mg PO DAILY [facility] Last Admin: 03/08/17 07:40 Dose: 20 mg Lactulose (Cephulac) 20 gm PO BID [facility] Last Admin: 03/08/17 07:39 Dose: 20 gm Lorazepam (Ativan) 1 mg PO BID PRN PRN Reason: anxiety Last Admin: 03/07/17 21:39 Dose: 1 mg Miconazole (Miconazole 2% Vaginal) 0 gm TOP BID [facility] Last Admin: 03/08/17 07:47 Dose: 1 applic Forteo 20mcg/Dose ( (Own Supply)) 20 mcg SUBCUT DAILY [facility] Last Admin: 03/08/17 07:45 Dose: 20 mcg Cholecalciferol (Vit (D3)) 0 units PO DAILY [facility] Stop: 04/27/17 08:01 Last Admin: 03/08/17 07:44 Dose: 10,000 units Ondansetron HCl (Zofran Odt) 4 mg PO Q4H PRN PRN Reason: Nausea Last Admin: 03/03/17 07:52 Dose: 4 mg Pregabalin (Lyrica) 50 mg PO TID@0800,1400,2100 [facility] Last Admin: 03/08/17 07:41 Dose: 50 mg Ropinirole HCl (Requip) 1.5 mg PO BEDTIME [facility] Last Admin: 03/07/17 21:37 Dose: 1.5 mg Sertraline HCl (Zoloft) 100 mg PO DAILY [facility] Last Admin: 03/08/17 07:40 Dose: 100 mg Simvastatin (Zocor) 20 mg PO BEDTIME [facility] Last Admin: 03/07/17 21:39 Dose: 20 mg Tizanidine HCl (Zanaflex) 1 mg PO TID@0800,1400,2100 [facility] Last Admin: 03/08/17 07:42 Dose: 1 mg Discontinued Medications Acetaminophen (Tylenol Extra Strength) 1,000 mg PO TID [facility] Last Admin: 03/04/17 12:53 Dose: Not Given Calcium Citrate (Calcium Citrate + D) 1 tab PO BID [facility] Last Admin: 03/02/17 07:44 Dose: 1 tab Cholecalciferol (Vitamin D3) 10,000 units PO DAILY [facility] Stop: 04/27/17 08:01 Last Admin: 03/04/17 08:57 Dose: Not Given Enoxaparin Sodium (Lovenox) 40 mg SUBCUT DAILY [facility] Last Admin: 03/08/17 07:39 Dose: 40 mg Ferrous Sulfate (Ferrous Sulfate) 325 mg PO BIDMEALS [facility] Last Admin: 02/18/17 07:57 Dose: 325 mg Ferrous Sulfate (Ferrous Sulfate) 300 mg PO BID [facility] Last Admin: 02/18/17 10:44 Dose: Not Given Ferrous Sulfate (Ferrous Sulfate) 300 mg PO BID [facility] Last Admin: 03/05/17 08:53 Dose: 300 mg Hydromorphone HCl (Dilaudid) 2 mg PO Q4H PRN PRN Reason: Pain Nitrofurantoin Macrocrystals (Macrobid) 100 mg PO BID [facility] Stop: 02/23/17 08:01 Last Admin: 02/23/17 08:44 Dose: 100 mg Non-Formulary Medication (Glucosamine Sulfate/Msm [Msm-Glucosamine 250-250 Mg]) 1 each PO BID [facility] Pregabalin (Lyrica) 50 mg PO TID [facility] Last Admin: 03/04/17 12:53 Dose: Not Given Tizanidine HCl (Zanaflex) 1 mg PO TID [facility] Last Admin: 03/04/17 12:53 Dose: Not Given - Exam General: alert, oriented, cooperative, no acute distress HEENT: Mucous membr. moist/pink Neck: supple, no thyromegaly. No: lymphadenopathy Lungs: Clear to auscultation, Normal respiratory effort Cardiovascular: Regular Rate, Regular Rhythm, No Murmurs Abdomen: bowel sounds present, soft, no tenderness, no distension Extremities: no edema, normal pulses Skin: warm, dry, intact - Problem List & Annotations (1) Status post cervical spinal fusion SNOMED Code(s): 260567402, 185156380 Code(s): Z98.1 - ARTHRODESIS STATUS Status: Acute Current Visit: Yes Annotation/Comment:: - Doing well at this time. - Continue current pain and bowel regimens. - PT/OT consults. - Problem List Review Problem List Initiated/Reviewed/Updated: Yes - My Orders Last 24 Hours: My Active Orders 03/09/17 10:00 CULTURE MRSA CLEARANCE [] Routine - Assessment Assessment:: 71 yo female admitted to swing bed for rehab following cervical spine surgery. Rehab is progressing slowly, if at all. - Plan Plan:: 1. S/P cervical spinal fusion - See above. Chronic Medical Conditions: 2. Hypertension 3. Hyperlipidemia 4. Restless Leg Syndrome 5. Depression 6. Seasonal Allergies 7. DJD 8. Obesity - ASA is held at this time per patient preference. - Reasonable to d/c lovenox now that she is more mobile. - Otherwise, continue current medications. Patient is full code. LOS will be determined by PT and rehabilitation course.
[2017-03-08] MEDS: Simvastatin 20 MG Tab PO SCH (21:20)
[2017-03-08] MEDS: rOPINIRole 0.5 MG Tab PO SCH (21:21)
[2017-03-08] MEDS: LORazepam 1 MG Tab PO PRN (21:21)
[2017-03-09] MEDS: Lactulose Soln 10 GM/15 ML 30 ML UD Cup PO SCH ×2 (07:52→21:32)
[2017-03-09] MEDS: Carvedilol 3.125 MG Tab PO SCH ×2 (07:53→17:31)
[2017-03-09] MEDS: Furosemide 20 MG Tab PO SCH (07:53)
[2017-03-09] MEDS: Fluticasone Propionate Nasal Spray 16 GM Bottle**OWN MED NASBOTH SCH (07:53)
[2017-03-09] MEDS: Pregabalin 50 MG Cap PO SCH ×3 (07:53→21:32)
[2017-03-09] MEDS: tiZANidine 4 MG Tab PO SCH ×3 (07:54→21:32)
[2017-03-09] MEDS: Ferrous Sulfate 325 MG Tab PO SCH ×2 (07:54→17:31)
[2017-03-09] MEDS: Calcium Citrate/Vitamin D3 315 MG-250 Unit Tab PO SCH ×2 (07:55→21:32)
[2017-03-09] MEDS: Acetaminophen 500 MG Tab PO SCH ×3 (07:55→21:33)
[2017-03-09] MEDS: Sertraline 100 MG Tab PO SCH (07:56)
[2017-03-09] MEDS: Miconazole 2% Vaginal Crm 45 GM Tube TOP SCH ×2 (07:56→21:33)
[2017-03-09] MEDS: FORTEO SUBCUT SCH (08:02)
[2017-03-09] MEDS: CHOLECALCIFEROL PO SCH (09:03)
[2017-03-09] MEDS ORDERED: Fluconazole 100 MG Tab PO ONE (09:31)
[2017-03-09] MEDS: LORazepam 1 MG Tab PO PRN (21:32)
[2017-03-09] MEDS: rOPINIRole 0.5 MG Tab PO SCH (21:32)
[2017-03-09] MEDS: Simvastatin 20 MG Tab PO SCH (21:33)
[2017-03-10] MEDS: Lactulose Soln 10 GM/15 ML 30 ML UD Cup PO SCH ×2 (09:47→21:50)
[2017-03-10] MEDS: Carvedilol 3.125 MG Tab PO SCH ×2 (09:48→18:00)
[2017-03-10] MEDS: Ferrous Sulfate 325 MG Tab PO SCH ×2 (09:48→18:00)
[2017-03-10] MEDS: Pregabalin 50 MG Cap PO SCH ×3 (09:49→21:54)
[2017-03-10] MEDS: tiZANidine 4 MG Tab PO SCH ×3 (09:49→21:53)
[2017-03-10] MEDS: Sertraline 100 MG Tab PO SCH (09:49)
[2017-03-10] MEDS: Calcium Carbonate 750 MG Tab.Chew PO PRN (09:50)
[2017-03-10] MEDS: Furosemide 20 MG Tab PO SCH (09:50)
[2017-03-10] MEDS: Calcium Citrate/Vitamin D3 315 MG-250 Unit Tab PO SCH ×2 (09:50→21:52)
[2017-03-10] MEDS: Acetaminophen 500 MG Tab PO SCH ×3 (09:50→21:53)
[2017-03-10] MEDS: Miconazole 2% Vaginal Crm 45 GM Tube TOP SCH ×2 (09:51→21:55)
[2017-03-10] MEDS: CHOLECALCIFEROL PO SCH (09:52)
[2017-03-10] MEDS: Fluticasone Propionate Nasal Spray 16 GM Bottle**OWN MED NASBOTH SCH (09:52)
[2017-03-10] MEDS: FORTEO SUBCUT SCH (09:55)
[2017-03-10] MEDS: Ondansetron 4 MG Tab.DIS PO PRN (12:13)
[2017-03-10] MEDS: rOPINIRole 0.5 MG Tab PO SCH (21:52)
[2017-03-10] MEDS: Simvastatin 20 MG Tab PO SCH (21:54)
[2017-03-10] MEDS: LORazepam 1 MG Tab PO PRN (21:55)
[2017-03-11] MEDS: Calcium Carbonate 750 MG Tab.Chew PO PRN (05:14)
[2017-03-11] MEDS: CHOLECALCIFEROL PO SCH (08:17)
[2017-03-11] MEDS: tiZANidine 4 MG Tab PO SCH ×3 (08:17→21:40)
[2017-03-11] MEDS: Sertraline 100 MG Tab PO SCH (08:18)
[2017-03-11] MEDS: Calcium Citrate/Vitamin D3 315 MG-250 Unit Tab PO SCH ×2 (08:18→21:33)
[2017-03-11] MEDS: Pregabalin 50 MG Cap PO SCH ×3 (08:18→21:39)
[2017-03-11] MEDS: Ferrous Sulfate 325 MG Tab PO SCH ×2 (08:18→18:42)
[2017-03-11] MEDS: Carvedilol 3.125 MG Tab PO SCH ×2 (08:19→18:42)
[2017-03-11] MEDS: Lactulose Soln 10 GM/15 ML 30 ML UD Cup PO SCH ×2 (08:19→21:33)
[2017-03-11] MEDS: Acetaminophen 500 MG Tab PO SCH ×3 (08:19→21:39)
[2017-03-11] MEDS: Furosemide 20 MG Tab PO SCH (08:19)
[2017-03-11] MEDS: Fluticasone Propionate Nasal Spray 16 GM Bottle**OWN MED NASBOTH SCH (08:20)
[2017-03-11] MEDS: Miconazole 2% Vaginal Crm 45 GM Tube TOP SCH ×2 (08:20→21:34)
[2017-03-11] MEDS: FORTEO SUBCUT SCH (08:25)
[2017-03-11] MEDS: Simvastatin 20 MG Tab PO SCH (21:33)
[2017-03-11] MEDS: rOPINIRole 0.5 MG Tab PO SCH (21:33)
[2017-03-11] MEDS: LORazepam 1 MG Tab PO PRN (21:33)
[2017-03-12] MEDS: Fluticasone Propionate Nasal Spray 16 GM Bottle**OWN MED NASBOTH SCH (07:55)
[2017-03-12] MEDS: CHOLECALCIFEROL PO SCH (07:55)
[2017-03-12] MEDS: Lactulose Soln 10 GM/15 ML 30 ML UD Cup PO SCH ×2 (07:56→21:16)
[2017-03-12] MEDS: Calcium Citrate/Vitamin D3 315 MG-250 Unit Tab PO SCH ×2 (07:57→21:16)
[2017-03-12] MEDS: Ferrous Sulfate 325 MG Tab PO SCH ×2 (07:57→18:03)
[2017-03-12] MEDS: Acetaminophen 500 MG Tab PO SCH ×3 (07:57→21:18)
[2017-03-12] MEDS: tiZANidine 4 MG Tab PO SCH ×3 (07:58→21:21)
[2017-03-12] MEDS: Sertraline 100 MG Tab PO SCH (07:58)
[2017-03-12] MEDS: Furosemide 20 MG Tab PO SCH (07:58)
[2017-03-12] MEDS: Pregabalin 50 MG Cap PO SCH ×3 (07:59→21:21)
[2017-03-12] MEDS: Carvedilol 3.125 MG Tab PO SCH ×2 (07:59→18:03)
[2017-03-12] MEDS: FORTEO SUBCUT SCH (08:00)
[2017-03-12] MEDS: Miconazole 2% Vaginal Crm 45 GM Tube TOP SCH ×2 (08:02→21:17)
[2017-03-12] MEDS ORDERED: Fluconazole 100 MG Tab PO ONE (09:53)
--- NOTE | 2017-03-12 09:54 | PCM.SN ---
- Free Text/Narrative Note: Still with ongoing vaginal itching and perineal erythema. Will do 1 more dose of diflucan. If this does not work, then she will need an appointment in clinic for a pelvis exam.
[2017-03-12] MEDS: LORazepam 1 MG Tab PO PRN (21:16)
[2017-03-12] MEDS: rOPINIRole 0.5 MG Tab PO SCH (21:16)
[2017-03-12] MEDS: Simvastatin 20 MG Tab PO SCH (21:17)
[2017-03-13] MEDS: Acetaminophen 500 MG Tab PO SCH ×3 (08:16→22:04)
[2017-03-13] MEDS: Pregabalin 50 MG Cap PO SCH ×3 (08:16→22:03)
[2017-03-13] MEDS: Ferrous Sulfate 325 MG Tab PO SCH ×2 (08:16→17:45)
[2017-03-13] MEDS: tiZANidine 4 MG Tab PO SCH ×3 (08:16→22:04)
[2017-03-13] MEDS: Sertraline 100 MG Tab PO SCH (08:16)
[2017-03-13] MEDS: Calcium Citrate/Vitamin D3 315 MG-250 Unit Tab PO SCH ×2 (08:16→22:02)
[2017-03-13] MEDS: Lactulose Soln 10 GM/15 ML 30 ML UD Cup PO SCH ×2 (08:16→22:02)
[2017-03-13] MEDS: Carvedilol 3.125 MG Tab PO SCH ×2 (08:16→17:45)
[2017-03-13] MEDS: Furosemide 20 MG Tab PO SCH (08:16)
[2017-03-13] MEDS: Fluticasone Propionate Nasal Spray 16 GM Bottle**OWN MED NASBOTH SCH (08:16)
[2017-03-13] MEDS: CHOLECALCIFEROL PO SCH (08:17)
[2017-03-13] MEDS: Miconazole 2% Vaginal Crm 45 GM Tube TOP SCH ×2 (08:17→22:03)
[2017-03-13] MEDS: FORTEO SUBCUT SCH (08:19)
[2017-03-13] MEDS: Simvastatin 20 MG Tab PO SCH (22:03)
[2017-03-13] MEDS: rOPINIRole 0.5 MG Tab PO SCH (22:03)
[2017-03-13] MEDS: LORazepam 1 MG Tab PO PRN (22:07)
[2017-03-14] MEDS: Pregabalin 50 MG Cap PO SCH ×3 (07:25→21:24)
[2017-03-14] MEDS: Lactulose Soln 10 GM/15 ML 30 ML UD Cup PO SCH ×2 (07:25→21:23)
[2017-03-14] MEDS: CHOLECALCIFEROL PO SCH (07:25)
[2017-03-14] MEDS: Fluticasone Propionate Nasal Spray 16 GM Bottle**OWN MED NASBOTH SCH (07:25)
[2017-03-14] MEDS: tiZANidine 4 MG Tab PO SCH ×3 (07:25→21:24)
[2017-03-14] MEDS: Calcium Citrate/Vitamin D3 315 MG-250 Unit Tab PO SCH ×2 (07:25→21:23)
[2017-03-14] MEDS: Furosemide 20 MG Tab PO SCH (07:25)
[2017-03-14] MEDS: Ferrous Sulfate 325 MG Tab PO SCH ×2 (07:26→16:59)
[2017-03-14] MEDS: Sertraline 100 MG Tab PO SCH (07:26)
[2017-03-14] MEDS: Acetaminophen 500 MG Tab PO SCH ×3 (07:26→21:35)
[2017-03-14] MEDS: Carvedilol 3.125 MG Tab PO SCH ×2 (07:26→16:59)
[2017-03-14] MEDS: Miconazole 2% Vaginal Crm 45 GM Tube TOP SCH ×2 (07:26→21:33)
[2017-03-14] MEDS: FORTEO SUBCUT SCH (07:28)
[2017-03-14] MEDS: rOPINIRole 0.5 MG Tab PO SCH (21:23)
[2017-03-14] MEDS: Dextran 70/Hypromellose/PF Ophth Soln 0.9 ML UD EYEBOTH PRN (21:24)
[2017-03-14] MEDS: LORazepam 1 MG Tab PO PRN (21:24)
[2017-03-14] MEDS: Simvastatin 20 MG Tab PO SCH (21:24)
[2017-03-15] MEDS: Lactulose Soln 10 GM/15 ML 30 ML UD Cup PO SCH ×2 (07:55→21:37)
[2017-03-15] MEDS: Ferrous Sulfate 325 MG Tab PO SCH ×2 (07:55→18:03)
[2017-03-15] MEDS: Carvedilol 3.125 MG Tab PO SCH ×2 (07:55→18:03)
[2017-03-15] MEDS: Calcium Citrate/Vitamin D3 315 MG-250 Unit Tab PO SCH ×2 (07:55→21:37)
[2017-03-15] MEDS: Pregabalin 50 MG Cap PO SCH ×3 (07:56→21:38)
[2017-03-15] MEDS: Sertraline 100 MG Tab PO SCH (07:56)
[2017-03-15] MEDS: tiZANidine 4 MG Tab PO SCH ×3 (07:56→21:38)
[2017-03-15] MEDS: Furosemide 20 MG Tab PO SCH (07:57)
[2017-03-15] MEDS: Acetaminophen 500 MG Tab PO SCH ×3 (07:57→21:38)
[2017-03-15] MEDS: CHOLECALCIFEROL PO SCH (07:59)
[2017-03-15] MEDS: Fluticasone Propionate Nasal Spray 16 GM Bottle**OWN MED NASBOTH SCH (08:00)
[2017-03-15] MEDS: FORTEO SUBCUT SCH (08:12)
[2017-03-15] MEDS: Miconazole 2% Vaginal Crm 45 GM Tube TOP SCH (08:16)
[2017-03-15] MEDS: Nystatin Crm 30 GM Tube TOP SCH ×2 (09:30→21:37)
[2017-03-15] MEDS: rOPINIRole 0.5 MG Tab PO SCH (21:37)
[2017-03-15] MEDS: Simvastatin 20 MG Tab PO SCH (21:38)
[2017-03-15] MEDS: LORazepam 1 MG Tab PO PRN (21:43)
[2017-03-16] MEDS: Fluticasone Propionate Nasal Spray 16 GM Bottle**OWN MED NASBOTH SCH (07:37)
[2017-03-16] MEDS: Lactulose Soln 10 GM/15 ML 30 ML UD Cup PO SCH ×2 (07:37→21:41)
[2017-03-16] MEDS: Furosemide 20 MG Tab PO SCH (07:39)
[2017-03-16] MEDS: Sertraline 100 MG Tab PO SCH (07:39)
[2017-03-16] MEDS: Carvedilol 3.125 MG Tab PO SCH ×2 (07:40→17:57)
[2017-03-16] MEDS: Pregabalin 50 MG Cap PO SCH ×3 (07:40→21:42)
[2017-03-16] MEDS: Ferrous Sulfate 325 MG Tab PO SCH ×2 (07:40→17:57)
[2017-03-16] MEDS: Calcium Citrate/Vitamin D3 315 MG-250 Unit Tab PO SCH ×2 (07:40→21:41)
[2017-03-16] MEDS: tiZANidine 4 MG Tab PO SCH ×3 (07:41→21:43)
[2017-03-16] MEDS: Acetaminophen 500 MG Tab PO SCH ×3 (07:41→21:42)
[2017-03-16] MEDS: CHOLECALCIFEROL PO SCH (07:42)
[2017-03-16] MEDS: Nystatin Crm 30 GM Tube TOP SCH ×2 (07:42→21:41)
[2017-03-16] MEDS: FORTEO SUBCUT SCH (07:44)
[2017-03-16] MEDS: rOPINIRole 0.5 MG Tab PO SCH (21:41)
[2017-03-16] MEDS: Simvastatin 20 MG Tab PO SCH (21:42)
[2017-03-16] MEDS: LORazepam 1 MG Tab PO PRN (21:43)
[2017-03-17] MEDS: Acetaminophen 500 MG Tab PO SCH ×4 (06:36→21:36)
[2017-03-17] MEDS: CHOLECALCIFEROL PO SCH (08:29)
[2017-03-17] MEDS: Fluticasone Propionate Nasal Spray 16 GM Bottle**OWN MED NASBOTH SCH (08:29)
[2017-03-17] MEDS: Nystatin Crm 30 GM Tube TOP SCH ×2 (08:29→21:37)
[2017-03-17] MEDS: Furosemide 20 MG Tab PO SCH (08:30)
[2017-03-17] MEDS: Ferrous Sulfate 325 MG Tab PO SCH ×2 (08:30→17:41)
[2017-03-17] MEDS: Pregabalin 50 MG Cap PO SCH ×3 (08:30→21:37)
[2017-03-17] MEDS: tiZANidine 4 MG Tab PO SCH ×3 (08:30→21:36)
[2017-03-17] MEDS: Calcium Citrate/Vitamin D3 315 MG-250 Unit Tab PO SCH ×2 (08:30→21:36)
[2017-03-17] MEDS: Carvedilol 3.125 MG Tab PO SCH ×2 (08:30→17:41)
[2017-03-17] MEDS: Sertraline 100 MG Tab PO SCH (08:31)
[2017-03-17] MEDS: Lactulose Soln 10 GM/15 ML 30 ML UD Cup PO SCH ×2 (08:31→21:35)
[2017-03-17] MEDS: FORTEO SUBCUT SCH (08:31)
[2017-03-17] MEDS: Dextran 70/Hypromellose/PF Ophth Soln 0.9 ML UD EYEBOTH PRN (21:35)
[2017-03-17] MEDS: rOPINIRole 0.5 MG Tab PO SCH (21:36)
[2017-03-17] MEDS: LORazepam 1 MG Tab PO PRN (21:36)
[2017-03-17] MEDS: Simvastatin 20 MG Tab PO SCH (21:37)
[2017-03-18] MEDS: Calcium Citrate/Vitamin D3 315 MG-250 Unit Tab PO SCH ×2 (07:23→21:38)
[2017-03-18] MEDS: Lactulose Soln 10 GM/15 ML 30 ML UD Cup PO SCH ×2 (07:23→21:40)
[2017-03-18] MEDS: Carvedilol 3.125 MG Tab PO SCH ×2 (07:23→17:33)
[2017-03-18] MEDS: Fluticasone Propionate Nasal Spray 16 GM Bottle**OWN MED NASBOTH SCH (07:24)
[2017-03-18] MEDS: Ferrous Sulfate 325 MG Tab PO SCH ×2 (07:24→17:34)
[2017-03-18] MEDS: tiZANidine 4 MG Tab PO SCH ×3 (07:25→21:39)
[2017-03-18] MEDS: Acetaminophen 500 MG Tab PO SCH ×3 (07:25→21:39)
[2017-03-18] MEDS: Furosemide 20 MG Tab PO SCH (07:25)
[2017-03-18] MEDS: Pregabalin 50 MG Cap PO SCH ×3 (07:25→21:39)
[2017-03-18] MEDS: Nystatin Crm 30 GM Tube TOP SCH ×2 (07:25→21:39)
[2017-03-18] MEDS: Sertraline 100 MG Tab PO SCH (07:26)
[2017-03-18] MEDS: CHOLECALCIFEROL PO SCH (07:30)
[2017-03-18] MEDS: FORTEO SUBCUT SCH (07:35)
[2017-03-18] MEDS: Dextran 70/Hypromellose/PF Ophth Soln 0.9 ML UD EYEBOTH PRN (21:38)
[2017-03-18] MEDS: rOPINIRole 0.5 MG Tab PO SCH (21:38)
[2017-03-18] MEDS: Simvastatin 20 MG Tab PO SCH (21:38)
[2017-03-18] MEDS: LORazepam 1 MG Tab PO PRN (21:40)
[2017-03-19] MEDS: Lactulose Soln 10 GM/15 ML 30 ML UD Cup PO SCH ×2 (08:05→19:42)
[2017-03-19] MEDS: Calcium Citrate/Vitamin D3 315 MG-250 Unit Tab PO SCH ×2 (08:05→19:44)
[2017-03-19] MEDS: Carvedilol 3.125 MG Tab PO SCH ×2 (08:07→17:23)
[2017-03-19] MEDS: Acetaminophen 500 MG Tab PO SCH ×3 (08:07→19:44)
[2017-03-19] MEDS: CHOLECALCIFEROL PO SCH (08:07)
[2017-03-19] MEDS: Sertraline 100 MG Tab PO SCH (08:08)
[2017-03-19] MEDS: Fluticasone Propionate Nasal Spray 16 GM Bottle**OWN MED NASBOTH SCH (08:08)
[2017-03-19] MEDS: Pregabalin 50 MG Cap PO SCH ×3 (08:08→20:51)
[2017-03-19] MEDS: Nystatin Crm 30 GM Tube TOP SCH ×2 (08:08→19:46)
[2017-03-19] MEDS: Ferrous Sulfate 325 MG Tab PO SCH ×2 (08:08→17:23)
[2017-03-19] MEDS: Furosemide 20 MG Tab PO SCH (08:08)
[2017-03-19] MEDS: tiZANidine 4 MG Tab PO SCH ×3 (08:09→19:43)
[2017-03-19] MEDS: FORTEO SUBCUT SCH (08:09)
[2017-03-19] MEDS: LORazepam 1 MG Tab PO PRN (19:43)
[2017-03-19] MEDS: rOPINIRole 0.5 MG Tab PO SCH (19:43)
[2017-03-19] MEDS: Simvastatin 20 MG Tab PO SCH (19:44)
[2017-03-20] MEDS: Acetaminophen 500 MG Tab PO SCH ×4 (00:56→20:05)
[2017-03-20] MEDS: tiZANidine 4 MG Tab PO SCH ×4 (00:57→20:06)
[2017-03-20] MEDS: Lactulose Soln 10 GM/15 ML 30 ML UD Cup PO SCH ×2 (07:51→20:08)
[2017-03-20] MEDS: Fluticasone Propionate Nasal Spray 16 GM Bottle**OWN MED NASBOTH SCH (07:52)
[2017-03-20] MEDS: Sertraline 100 MG Tab PO SCH (07:52)
[2017-03-20] MEDS: CHOLECALCIFEROL PO SCH (07:52)
[2017-03-20] MEDS: Carvedilol 3.125 MG Tab PO SCH ×2 (07:52→17:40)
[2017-03-20] MEDS: Pregabalin 50 MG Cap PO SCH ×3 (07:52→20:07)
[2017-03-20] MEDS: Calcium Citrate/Vitamin D3 315 MG-250 Unit Tab PO SCH ×2 (07:52→20:05)
[2017-03-20] MEDS: Ferrous Sulfate 325 MG Tab PO SCH ×2 (07:53→17:40)
[2017-03-20] MEDS: Furosemide 20 MG Tab PO SCH (07:53)
[2017-03-20] MEDS: Nystatin Crm 30 GM Tube TOP SCH ×2 (07:54→20:08)
[2017-03-20] MEDS: FORTEO SUBCUT SCH (07:56)
[2017-03-20] MEDS: rOPINIRole 0.5 MG Tab PO SCH (20:05)
[2017-03-20] MEDS: LORazepam 1 MG Tab PO PRN (20:07)
[2017-03-20] MEDS: Simvastatin 20 MG Tab PO SCH (20:08)
[2017-03-21] MEDS: Lactulose Soln 10 GM/15 ML 30 ML UD Cup PO SCH ×2 (07:43→20:58)
[2017-03-21] MEDS: Fluticasone Propionate Nasal Spray 16 GM Bottle**OWN MED NASBOTH SCH (07:43)
[2017-03-21] MEDS: CHOLECALCIFEROL PO SCH (07:43)
[2017-03-21] MEDS: Pregabalin 50 MG Cap PO SCH ×3 (07:45→20:56)
[2017-03-21] MEDS: tiZANidine 4 MG Tab PO SCH ×3 (07:45→20:54)
[2017-03-21] MEDS: Sertraline 100 MG Tab PO SCH (07:46)
[2017-03-21] MEDS: Calcium Citrate/Vitamin D3 315 MG-250 Unit Tab PO SCH ×2 (07:46→20:55)
[2017-03-21] MEDS: Ferrous Sulfate 325 MG Tab PO SCH ×2 (07:46→17:55)
[2017-03-21] MEDS: Acetaminophen 500 MG Tab PO SCH ×3 (07:47→20:57)
[2017-03-21] MEDS: Furosemide 20 MG Tab PO SCH (07:47)
[2017-03-21] MEDS: Carvedilol 3.125 MG Tab PO SCH ×2 (07:47→17:54)
[2017-03-21] MEDS: Nystatin Crm 30 GM Tube TOP SCH ×2 (07:49→20:56)
[2017-03-21] MEDS: FORTEO SUBCUT SCH (07:49)
[2017-03-21] MEDS: LORazepam 1 MG Tab PO PRN (20:55)
[2017-03-21] MEDS: rOPINIRole 0.5 MG Tab PO SCH (20:55)
[2017-03-21] MEDS: Simvastatin 20 MG Tab PO SCH (20:56)
[2017-03-22] MEDS: Lactulose Soln 10 GM/15 ML 30 ML UD Cup PO SCH ×3 (07:30→21:34)
[2017-03-22] MEDS: Furosemide 20 MG Tab PO SCH (07:31)
[2017-03-22] MEDS: Acetaminophen 500 MG Tab PO SCH ×3 (07:31→21:29)
[2017-03-22] MEDS: FORTEO SUBCUT SCH (07:31)
[2017-03-22] MEDS: Calcium Citrate/Vitamin D3 315 MG-250 Unit Tab PO SCH ×2 (07:32→21:29)
[2017-03-22] MEDS: Ferrous Sulfate 325 MG Tab PO SCH ×2 (07:32→17:41)
[2017-03-22] MEDS: Pregabalin 50 MG Cap PO SCH ×3 (07:32→21:29)
[2017-03-22] MEDS: tiZANidine 4 MG Tab PO SCH ×3 (07:33→21:29)
[2017-03-22] MEDS: Carvedilol 3.125 MG Tab PO SCH ×2 (07:33→17:41)
[2017-03-22] MEDS: Fluticasone Propionate Nasal Spray 16 GM Bottle**OWN MED NASBOTH SCH (07:34)
[2017-03-22] MEDS: CHOLECALCIFEROL PO SCH (07:34)
[2017-03-22] MEDS: Sertraline 100 MG Tab PO SCH (07:34)
[2017-03-22] MEDS: Nystatin Crm 30 GM Tube TOP SCH ×2 (08:41→21:28)
[2017-03-22] MEDS: rOPINIRole 0.5 MG Tab PO SCH (21:28)
[2017-03-22] MEDS: LORazepam 1 MG Tab PO PRN (21:29)
[2017-03-22] MEDS: Simvastatin 20 MG Tab PO SCH (21:29)
[2017-03-22] MEDS: Dextran 70/Hypromellose/PF Ophth Soln 0.9 ML UD EYEBOTH PRN (21:30)
[2017-03-23] MEDS: Calcium Citrate/Vitamin D3 315 MG-250 Unit Tab PO SCH ×2 (07:20→21:30)
[2017-03-23] MEDS: Nystatin Crm 30 GM Tube TOP SCH ×2 (07:20→21:31)
[2017-03-23] MEDS: Pregabalin 50 MG Cap PO SCH ×3 (07:21→21:31)
[2017-03-23] MEDS: Fluticasone Propionate Nasal Spray 16 GM Bottle**OWN MED NASBOTH SCH (07:21)
[2017-03-23] MEDS: CHOLECALCIFEROL PO SCH (07:21)
[2017-03-23] MEDS: Ferrous Sulfate 325 MG Tab PO SCH ×2 (07:21→17:53)
[2017-03-23] MEDS: Furosemide 20 MG Tab PO SCH (07:22)
[2017-03-23] MEDS: Sertraline 100 MG Tab PO SCH (07:22)
[2017-03-23] MEDS: Carvedilol 3.125 MG Tab PO SCH ×2 (07:22→17:52)
[2017-03-23] MEDS: Acetaminophen 500 MG Tab PO SCH ×3 (07:23→21:30)
[2017-03-23] MEDS: tiZANidine 4 MG Tab PO SCH ×3 (07:23→21:31)
[2017-03-23] MEDS: FORTEO SUBCUT SCH (07:24)
[2017-03-23] MEDS: Lactulose Soln 10 GM/15 ML 30 ML UD Cup PO SCH ×2 (07:25→21:32)
[2017-03-23] MEDS: rOPINIRole 0.5 MG Tab PO SCH (21:30)
[2017-03-23] MEDS: Dextran 70/Hypromellose/PF Ophth Soln 0.9 ML UD EYEBOTH PRN (21:30)
[2017-03-23] MEDS: Simvastatin 20 MG Tab PO SCH (21:31)
[2017-03-23] MEDS: LORazepam 1 MG Tab PO PRN (21:31)
[2017-03-24 06:04] VITALS: BP 147/76
[2017-03-24] MEDS: Calcium Citrate/Vitamin D3 315 MG-250 Unit Tab PO SCH (07:52)
[2017-03-24] MEDS: Lactulose Soln 10 GM/15 ML 30 ML UD Cup PO SCH (07:52)
[2017-03-24] MEDS: Ferrous Sulfate 325 MG Tab PO SCH (07:52)
[2017-03-24] MEDS: Acetaminophen 500 MG Tab PO SCH (07:52)
[2017-03-24] MEDS: Sertraline 100 MG Tab PO SCH (07:52)
[2017-03-24] MEDS: Pregabalin 50 MG Cap PO SCH (07:52)
[2017-03-24] MEDS: tiZANidine 4 MG Tab PO SCH (07:52)
[2017-03-24] MEDS: Carvedilol 3.125 MG Tab PO SCH (07:52)
[2017-03-24] MEDS: Furosemide 20 MG Tab PO SCH (07:52)
[2017-03-24] MEDS: Fluticasone Propionate Nasal Spray 16 GM Bottle**OWN MED NASBOTH SCH (07:53)
[2017-03-24] MEDS: CHOLECALCIFEROL PO SCH (07:53)
[2017-03-24] MEDS: FORTEO SUBCUT SCH (07:53)
[2017-03-24] MEDS: Nystatin Crm 30 GM Tube TOP SCH (07:53)
--- NOTE | 2017-03-24 08:28 | PCM.DCSUM1 ---
Discharge Summary - Hospital Course Brief History: Mrs. Zaldivar is a 71 yo female who was admitted for rehab following cervical spine surgery. - Discharge Data Discharge Date: 03/24/17 Discharge Disposition: Home, Self-Care 01 Condition: Good - Discharge Diagnosis/Problem(s) (1) Status post cervical spinal fusion SNOMED Code(s): 2476874808755, [id number], [id number] ICD Code: Z98.1 - ARTHRODESIS STATUS Status: Acute Current Visit: Yes Problem Details: PT and OT were consulted. She initially made only gradual improvement in functional status. But in the last 2 weeks of her stay, she made significant improvements and it was felt her plan to return home with her was reasonable. Her pain was initially controlled with narcotics and then with nothing. She had no issues with her bowel movements while here. (2) Yeast dermatitis SNOMED Code(s): 41952683 ICD Code: B37.2 - CANDIDIASIS OF SKIN AND NAIL Status: Acute Current Visit: Yes Problem Details: Her hospital stay was complicated by some yeast dermatitis. Initially, it was felt this was a vaginal yeast infection and she was treated with miconazole and diflucan. However, this was not effective at relieving her symptoms. Therefore, she did go over to clinic for a visit and it was determined the issue was really in her groins bilaterally. (3) Depression SNOMED Code(s): 20141350 ICD Code: F32.9 - MAJOR DEPRESSIVE DISORDER, SINGLE EPISODE, UNSPECIFIED Status: Chronic Current Visit: No Problem Details: Zoloft continued without incident. Qualifiers: Depression Type: major depressive disorder Major depression recurrence: single episode Major depression episode severity: unspecified (4) Hyperlipidemia SNOMED Code(s): 83219376 ICD Code: E78.5 - HYPERLIPIDEMIA, UNSPECIFIED Status: Chronic Current Visit: No Problem Details: Simvastatin continued without incident. Qualifiers: Hyperlipidemia type: unspecified Qualified Code(s): E78.5 - Hyperlipidemia , unspecified (5) Hypertension SNOMED Code(s): 82243292 ICD Code: I10 - ESSENTIAL (PRIMARY) HYPERTENSION Status: Chronic Current Visit: No Problem Details: Her blood pressures were up at times but overall good during her hospitalization. Medications continued as per [facility] discharge list without any incident. Qualifiers: Hypertension type: essential hypertension Qualified Code(s): I10 - Essential (primary) hypertension (6) Restless leg syndrome SNOMED Code(s): 36681462 ICD Code: G25.81 - RESTLESS LEGS SYNDROME Status: Chronic Current Visit: No Problem Details: Ropinorole continued without issue. - Patient Summary/Data Operative Procedure(s) Performed: none Complications: none Consults: Consultations 02/17/17 14:23 OT Evaluation and Treatment [CONS] Routine PT Evaluation and Treatment [CONS] Routine 03/16/17 10:55 OT Evaluation and Treatment [CONS] Routine Labs Pending at D/C: none Recommended Follow-up Testing/Procedures: none Planned Operative Procedure(s) after DC: none Hospital Course: As above under each problem. Her therapies progressed and it was felt she was prepared for dismissal. Her hospitalization was otherwise only complicated by yeast dermatitis. - Patient Instructions Diet: Usual Diet as Tolerated Activity: As Tolerated Driving: Do Not Drive Showering/Bathing: May Shower Notify Provider of: Fever, Increased Pain, Swelling and Redness, Drainage, Nausea and/or Vomiting - Discharge Plan Prescriptions/Med Rec: Carvedilol [Coreg] 3.125 mg PO BIDMEALS #60 tablet Furosemide [Lasix] 20 mg PO DAILY #30 tablet Nystatin [Nystatin Crm] 0 gm TOP BID #45 gm Home Medications: Home Meds Aspirin [Halfprin] 81 mg PO BEDTIME 11/10/16 [History] Fluticasone Propionate [Flonase] 2 spray NASBOTH DAILY 11/10/16 [History] Sertraline [Zoloft] 100 mg PO DAILY 11/10/16 [History] Simvastatin [Zocor] 20 mg PO BEDTIME 11/10/16 [History] Acetaminophen [Acetaminophen Extra Strength] 1,000 mg PO TID 02/10/17 [History] Calcium Carb & Citrate/Vit D3 [Calcium + D3 ER Tablet] 1 tab PO BID 02/10/17 [ History] Ferrous Sulfate 325 mg PO BID 02/10/17 [History] Pregabalin [Lyrica] 50 mg PO TID 02/10/17 [History] rOPINIRole [Requip] 1.5 mg PO BEDTIME 02/10/17 [History] tiZANidine HCl [Zanaflex] 1 mg PO TID 02/10/17 [History] Glucosamine Sulfate/Msm [MSM-Glucosamine 250-250 MG] 1 each PO BID 02/17/17 [ History] Carvedilol [Coreg] 3.125 mg PO BIDMEALS #60 tablet 03/24/17 [Rx] Cholecalciferol (Vitamin D3) [Vitamin D3] 2,000 units PO DAILY tablet 03/24/17 [Rx] Forteo 20mcg/Dose 20 mcg SUBCUT DAILY #0 device 03/24/17 [Rx] Furosemide [Lasix] 20 mg PO DAILY #30 tablet 03/24/17 [Rx] LORazepam [Ativan] 1 mg PO BID PRN #0 tablet 03/24/17 [Rx] Nystatin [Nystatin Crm] 0 gm TOP BID #45 gm 03/24/17 [Rx] - Discharge Summary/Plan Comment DC Time >30 min.: No - General Info Date of Service: 03/24/17 Subjective Update: Doing well this morning. Excited and nervous to get home. Has not required any hydrocodone for quite a few days. Pain has been controlled on tylenol. Otherwise , no concerns. - Review of Systems General: Reports: No Symptoms HEENT: Reports: No Symptoms Pulmonary: Reports: No Symptoms Cardiovascular: Reports: No Symptoms Gastrointestinal: Reports: No Symptoms Genitourinary: Reports: No Symptoms Musculoskeletal: Reports: No Symptoms Skin: Reports: No Symptoms Neurological: Reports: No Symptoms - Patient Data Vitals - Most Recent: Last Vital Signs Temp 36.6 C 03/24/17 06:00 Pulse 110 H 03/24/17 06:00 Resp 24 H 03/24/17 06:00 BP 147/76 H 03/24/17 06:00 Pulse Ox 93 L 03/24/17 06:00 Weight - Most Recent: 82.282 kg I&O - Last 24 hours: Intake & Output 03/23/17 03/24/17 03/24/17 22:59 06:59 14:59 Intake Total 600 300 Balance 600 300 Med Orders - Current: Current Medications Acetaminophen (Tylenol Extra Strength) 1,000 mg PO TID@0800,1400,2100 [facility] Last Admin: 03/24/17 07:52 Dose: 1,000 mg Hydrocodone Bitart/Acetaminophen ([place] 325-10 Mg) 1 tab PO Q8H PRN PRN Reason: Pain Last Admin: 03/03/17 03:52 Dose: 1 tab Artificial Tears (Tears Naturale Free) 1 each EYEBOTH BID PRN PRN Reason: Dry Eyes Last Admin: 03/23/17 21:30 Dose: 1 each Bisacodyl (Dulcolax) 10 mg RECTAL DAILY PRN PRN Reason: Constipation Calcium Carbonate/Glycine (Tums Extra Strength) 750 mg PO Q2H PRN PRN Reason: Dyspepsia Last Admin: 03/11/17 05:14 Dose: 750 mg Calcium Citrate (Calcium Citrate + D) 1 tab PO BID [facility] Last Admin: 03/24/17 07:52 Dose: 1 tab Carvedilol (Coreg) 3.125 mg PO BIDMEALS [facility] Last Admin: 03/24/17 07:52 Dose: 3.125 mg Cholecalciferol (Vitamin D3) 2,000 units PO DAILY [facility] Ferrous Sulfate (Ferrous Sulfate) 325 mg PO BIDMEALS [facility] Last Admin: 03/24/17 07:52 Dose: 325 mg Fluticasone Propionate (Flonase) 0 gm NASBOTH DAILY [facility] Last Admin: 03/24/17 07:53 Dose: 2 spray Furosemide (Lasix) 20 mg PO DAILY [facility] Last Admin: 03/24/17 07:52 Dose: 20 mg Lactulose (Cephulac) 20 gm PO BID [facility] Last Admin: 03/24/17 07:52 Dose: 20 gm Lorazepam (Ativan) 1 mg PO BID PRN PRN Reason: anxiety Last Admin: 03/23/17 21:31 Dose: 1 mg Forteo 20mcg/Dose ( (Own Supply)) 20 mcg SUBCUT DAILY [facility] Last Admin: 03/24/17 07:53 Dose: 20 mcg Cholecalciferol (Vit (D3)) 0 units PO DAILY [facility] Stop: 04/27/17 08:01 Last Admin: 03/24/17 07:53 Dose: 5,000 units Nystatin (Nystatin Crm) 0 gm TOP BID [facility] Last Admin: 03/24/17 07:53 Dose: 1 applic Ondansetron HCl (Zofran Odt) 4 mg PO Q4H PRN PRN Reason: Nausea Last Admin: 03/10/17 12:13 Dose: 4 mg Pregabalin (Lyrica) 50 mg PO TID@0800,1400,2100 [facility] Last Admin: 03/24/17 07:52 Dose: 50 mg Ropinirole HCl (Requip) 1.5 mg PO BEDTIME [facility] Last Admin: 03/23/17 21:30 Dose: 1.5 mg Sertraline HCl (Zoloft) 100 mg PO DAILY [facility] Last Admin: 03/24/17 07:52 Dose: 100 mg Simvastatin (Zocor) 20 mg PO BEDTIME [facility] Last Admin: 03/23/17 21:31 Dose: 20 mg Tizanidine HCl (Zanaflex) 1 mg PO TID@0800,1400,2100 [facility] Last Admin: 03/24/17 07:52 Dose: 1 mg Discontinued Medications Acetaminophen (Tylenol Extra Strength) 1,000 mg PO TID [facility] Last Admin: 03/04/17 12:53 Dose: Not Given Calcium Citrate (Calcium Citrate + D) 1 tab PO BID [facility] Last Admin: 03/02/17 07:44 Dose: 1 tab Cholecalciferol (Vitamin D3) 10,000 units PO DAILY [facility] Stop: 04/27/17 08:01 Last Admin: 03/04/17 08:57 Dose: Not Given Enoxaparin Sodium (Lovenox) 40 mg SUBCUT DAILY [facility] Last Admin: 03/08/17 07:39 Dose: 40 mg Ferrous Sulfate (Ferrous Sulfate) 325 mg PO BIDMEALS [facility] Last Admin: 02/18/17 07:57 Dose: 325 mg Ferrous Sulfate (Ferrous Sulfate) 300 mg PO BID [facility] Last Admin: 02/18/17 10:44 Dose: Not Given Ferrous Sulfate (Ferrous Sulfate) 300 mg PO BID [facility] Last Admin: 03/05/17 08:53 Dose: 300 mg Fluconazole (Diflucan) 100 mg PO ONETIME ONE Stop: 03/09/17 09:32 Last Admin: 03/09/17 10:49 Dose: 100 mg Fluconazole (Diflucan) 150 mg PO ONETIME ONE Stop: 03/12/17 09:54 Last Admin: 03/12/17 11:17 Dose: 150 mg Hydromorphone HCl (Dilaudid) 2 mg PO Q4H PRN PRN Reason: Pain Miconazole (Miconazole 2% Vaginal) 0 gm TOP BID [facility] Last Admin: 03/15/17 08:16 Dose: Not Given Nitrofurantoin Macrocrystals (Macrobid) 100 mg PO BID [facility] Stop: 02/23/17 08:01 Last Admin: 02/23/17 08:44 Dose: 100 mg Non-Formulary Medication (Glucosamine Sulfate/Msm [Msm-Glucosamine 250-250 Mg]) 1 each PO BID [facility] Pregabalin (Lyrica) 50 mg PO TID [facility] Last Admin: 03/04/17 12:53 Dose: Not Given Tizanidine HCl (Zanaflex) 1 mg PO TID [facility] Last Admin: 03/04/17 12:53 Dose: Not Given - Exam General: Reports: alert, oriented, cooperative, no acute distress HEENT: Reports: Pupils equal, Pupils reactive, Mucous membr. moist/pink Neck: Reports: supple, no thyromegaly. Denies: lymphadenopathy Lungs: Reports: Clear to Auscultation, Normal Respiratory Effort Cardiovascular: Reports: Regular Rate, Regular Rhythm, No Murmurs GI/Abdominal Exam: Normal Bowel Sounds, Soft, Non-Tender, No Organomegaly, No Distention, No Mass Extremities: Normal Inspection, No Pedal Edema, Normal Capillary Refill Skin: Reports: warm, dry, intact *Q Meaningful Use (DIS) - VTE *Q VTE Criteria *Q: - Stroke *Q Stroke Criteria *Q: - AMI *Q AMI Criteria *Q:
[2017-04-28] MEDS ORDERED: Cholecalciferol (Vitamin D3) 1,000 Unit Tab PO SCH (08:00)
== END 2017-03-24 10:05 | disposition home or self-care (01) | DRG 951 ==
LOC: VM.MS 12:50
PROVIDERS: ADMIT Family Medicine; ATTEND Family Medicine
DX: Z98.1 Arthrodesis status (principal); B37.2 Candidiasis of skin and nail; I10 Essential (primary) hypertension; E78.5 Hyperlipidemia, unspecified; G25.81 Restless legs syndrome; F32.9 Major depressive disorder, single episode, unspecified; F41.9 Anxiety disorder, unspecified; M19.90 Unspecified osteoarthritis, unspecified site; E66.9 Obesity, unspecified; Z68.30 Body mass index [BMI] 30.0-30.9, adult; J30.2 Other seasonal allergic rhinitis; W19.XXXA Unspecified fall, initial encounter; Y92.239 Unspecified place in hospital as the place of occurrence of the external cause; R53.1 Weakness; Z96.653 Presence of artificial knee joint, bilateral; Z88.0 Allergy status to penicillin; Z88.8 Allergy status to other drugs, medicaments and biological substances; Z91.09 Other allergy status, other than to drugs and biological substances; Z79.82 Long term (current) use of aspirin; Z79.899 Other long term (current) drug therapy
CPT/HCPCS: 36415; 70450; 72040; 81001; 85025; 85027; 87070; 97110-GO; 97110-GP; 97116-GP; 97161-GP; 97165-GO; 97168-GO; 97530-GP; 97535-GO; A9270-GY; J1650

== ENCOUNTER 2017-04-19 12:42 | Inpatient (IN) | payer MEDICARE, OTHER ==
--- NOTE | 2017-04-19 15:29 | PCM.HP ---
H&P History of Present Illness - General Date of Service: 04/19/17 Admit Problem/Dx: Admission Diagnosis/Problem Admission Diagnosis/Problem Laminectomy Source of Information: Patient, Family, Old Records - History of Present Illness Initial Comments - Free Text/Narative: Chief complaint: Swing bed admission for PT status post cervical fusion. History of present illness: Patient recently had her third cervical spine surgery in [place]. She was originally diagnosed with severe stenosis cord compression. She had decompression than two other procedures after this. She' s had no infectious or bleeding complication no thromboembolic or cardio pulmonary complication. She was discharged day for swing bed for fevers or further school therapy. She had SCDs for DVT prophylaxis there. She had vancomycin for infection prophylaxis perioperatively no further indication to continue. She did have some mild issues with urinary retention postop that's improving they're doing straight cath when necessary. She denies any saddle numbness. She is on Forteo because her bones are "mush" presumably some ostial malacia that surgeon was worried about, past DEXA did not show any osteoporosis. Past medical history: Recent cervical spine surgery 3 for severe cervical cord compression. History of lumbar spine surgery earlier this year. History of orthopedic hardware to knees and right leg/ankle. History of iron deficiency anemia. History of cholesterolemia. Allergies: Penicillin, flax, of butorphanol, diflunisal, isopropyl in the code 10 eight, linseed oil, Nicholas inhibitors,. Medications hydrocodone and Colace Flexeril iron Jaci lax Forteo Coreg Lasix Lyrica and Requip Ativan Flonase Zoloft Zocor. ROS: No fever, CP, SOB, abd pain, NVD, dysuria. Retention seems to be improving. No calf swelling. Vital Signs: Temp: 97.9 F (36.6 C)~| BP: 141/84~| Pulse: 66~| Resp: 16~| Pain Ratin~(out of 10) | Weight: 94.3 kg (208 lb)~| O2 Device: Room Air O2 Flow Rate (L/min): 2 l/min~| SpO2: 90 % a&o NAD sitting in chair Cervical collar in place Heart and lungs CTA Abd soft nontender EXt warm well perfused, no calf swelling or tenderness Last chem and cbc were ok A&P S/p 3rd cspine surg. PT consult. Mostly ambulatory, DVT prophylaxis not indicated currently. Pain controlled, wean narcs as tolerated. Continue forteo for possible osteomalacia BP ok on meds Iron for microcytosis - Related Data Allergies/Adverse Reactions: Allergies Allergy/AdvReac Type Severity Reaction Status Date / Time butorphanol Allergy Difficulty Verified 04/19/17 14:13 Breathing diflunisal Allergy Rash Verified 04/19/17 14:13 FD and C blue no.2 Allergy Rash Verified 04/19/17 14:13 (indigotine) flaxseed Allergy Other Verified 04/19/17 14:13 penicillin G Allergy Rash Verified 04/19/17 14:13 Penicillins Allergy Rash Verified 04/19/17 14:13 ramipril Allergy Rash Verified 04/19/17 14:13 lisinopril AdvReac Hypotension Verified 04/19/17 14:13 niacin AdvReac Mouth Sores Verified 04/19/17 14:13 isopropyl nicotinate Allergy Other Uncoded 04/19/17 14:13 linseed oil Allergy Other Uncoded 04/19/17 14:13 Home Medications: Home Meds Fluticasone Propionate [Flonase] 2 spray NASBOTH DAILY 11/10/16 [History] Sertraline [Zoloft] 100 mg PO DAILY 11/10/16 [History] Simvastatin [Zocor] 20 mg PO BEDTIME 11/10/16 [History] Acetaminophen [Acetaminophen Extra Strength] 1,000 mg PO TID 02/10/17 [History] Calcium Carb & Citrate/Vit D3 [Calcium + D3 ER Tablet] 1 tab PO BID 02/10/17 [ History] Ferrous Sulfate 325 mg PO BID 02/10/17 [History] Pregabalin [Lyrica] 50 mg PO TID 02/10/17 [History] rOPINIRole [Requip] 1.5 mg PO BEDTIME 02/10/17 [History] Carvedilol [Coreg] 3.125 mg PO BIDMEALS #60 tablet 03/24/17 [Rx] Forteo 20mcg/Dose 20 mcg SUBCUT DAILY #0 device 03/24/17 [Rx] Furosemide [Lasix] 20 mg PO DAILY #30 tablet 03/24/17 [Rx] LORazepam [Ativan] 1 mg PO BID PRN #0 tablet 03/24/17 [Rx] Cyclobenzaprine [Flexeril] 5 mg PO BEDTIME 04/19/17 [History] Docusate Sodium 100 mg PO BID PRN 04/19/17 [History] Hydrocodone/Acetaminophen [Hydrocodon-Acetaminoph 7.5-325] 2 tab PO Q6H PRN [History] Polyethylene Glycol 3350 [MiraLAX] 17 gm PO DAILY 04/19/17 [History] Past Medical History HEENT History: Reports: Hard of Hearing Cardiovascular History: Reports: High Cholesterol, Hypertension Respiratory History: Reports: None Gastrointestinal History: Reports: Colon Polyp Other Gastrointestinal History: postoperative nausea/vomiting Genitourinary History: Reports: None [employer] History: Reports: Other OB/BYN History: post menopausal HRT Musculoskeletal History: Reports: Arthritis, Back Pain, Chronic, Other (See Below) Other Musculoskeletal History: left shoulder injury pain Neurological History: Reports: None Psychiatric History: Reports: Anxiety, Depression Endocrine/Metabolic History: Reports: Hyperparathyroidism, Obesity/BMI 30+ Other Endocrine/Metabolic History: prediabetes Hematologic History: Reports: None Immunologic History: Reports: None Oncologic (Cancer) History: Reports: None Dermatologic History: Reports: None - Infectious Disease History Infectious Disease History: Reports: MRSA - Past Surgical History HEENT Surgical History: Reports: Tonsillectomy GI Surgical History: Reports: Appendectomy, Colonoscopy Female Surgical History: Reports: D&C, Hysterectomy, Tubal Ligation Endocrine Surgical History: Reports: Parathyroidectomy Neurological Surgical History: Reports: C-Spine, Laminectomy, Lumbar Spine, Other (See Below) Other Neurological Surgeries/Procedures: cervical fusion Musculoskeletal Surgical History: Reports: Knee Replacement, Other (See Below) Other Musculoskeletal Surgeries/Procedures:: right ankle fusion Social & Family History - Family History Family Medical History: Noncontributory Cardiac: Reports: CAD, [place] - Tobacco Use Smoking Status *Q: Never Smoker - Caffeine Use Caffeine Use: Reports: Coffee, Soda - Recreational Drug Use Recreational Drug Use: No - Living Situation & Occupation Living situation: Reports: , with Significant Other Occupation: Retired H&P Review of Systems - Review of Systems: Review Of Systems: See Below Exam - Exam Exam: See Below - Vital Signs Vital Signs: Last Vital Signs Temp 37.2 C 04/19/17 14:48 Pulse 70 04/19/17 14:48 Resp 16 04/19/17 14:48 BP 149/76 H 04/19/17 14:48 Pulse Ox 94 L 04/19/17 14:48 Weight: 82.282 kg *Q Meaningful Use (ADM) - VTE *Q VTE Criteria *Q: - Stroke *Q Stroke Criteria *Q: - AMI *Q AMI Criteria *Q: Problem List Initiated/Reviewed/Updated: Yes Orders Last 24hrs: Active Orders 24 hr Category Date Time Status Admission Status [Patient Status] [ADT] Routine ADT 04/19/17 14:30 Active Communication Order [RC] DAILY Care 04/19/17 14:24 Active Communication Order [RC] DAILY Care 04/19/17 14:28 Active Communication Order [RC] DAILY Care 04/19/17 14:30 Active Swati Suture Removal [OM.PC] Routine Oth 04/28/17 08:00 Ordered
[2017-04-19] MEDS ORDERED: LORazepam 1 MG Tab PO PRN (15:30)
[2017-04-19] MEDS ORDERED: Sodium Chloride 0.9% 10 ML Syringe FLUSH PRN (15:35)
[2017-04-19] MEDS: Carvedilol 6.25 MG Tab PO SCH (17:18)
[2017-04-19] MEDS: Acetaminophen/HYDROcodone 325-5 MG Tab PO PRN (17:28)
[2017-04-19] MEDS ORDERED: rOPINIRole 0.5 MG Tab PO SCH (20:00)
[2017-04-19] MEDS: Simvastatin 20 MG Tab PO SCH (21:21)
[2017-04-19] MEDS: Ferrous Sulfate 325 MG Tab PO SCH (21:21)
[2017-04-19] MEDS: Pregabalin 50 MG Cap PO SCH (21:21)
[2017-04-19] MEDS: Cyclobenzaprine 10 MG Tab **OWN MED PO SCH (21:22)
[2017-04-19] MEDS: Acetaminophen 500 MG Tab PO SCH (21:23)
[2017-04-20] MEDS: Acetaminophen/HYDROcodone 325-5 MG Tab PO PRN ×2 (05:01→20:44)
[2017-04-20 07:13] LABS: CHLORIDE,CL 96 mmol/L (98-107); SODIUM,NA 135 mmol/L (136-145)
[2017-04-20] MEDS: Polyethylene Glycol 3350 Powder 17 GM Packet PO SCH (09:21)
[2017-04-20] MEDS: Pregabalin 50 MG Cap PO SCH ×3 (09:22→20:41)
[2017-04-20] MEDS: Furosemide 20 MG Tab PO SCH (09:22)
[2017-04-20] MEDS: Sertraline 100 MG Tab PO SCH (09:23)
[2017-04-20] MEDS: Carvedilol 6.25 MG Tab PO SCH ×2 (09:23→17:11)
[2017-04-20] MEDS: Fluticasone Propionate Nasal Spray 16 GM Bottle **OWN MED NASBOTH SCH (09:24)
[2017-04-20] MEDS: Acetaminophen 500 MG Tab PO SCH ×3 (09:24→20:41)
[2017-04-20] MEDS: Ferrous Sulfate 325 MG Tab PO SCH ×2 (09:24→20:41)
[2017-04-20] MEDS: Potassium Chloride 20 MEQ Tab.ER PO SCH ×2 (09:25→20:41)
[2017-04-20] MEDS: FORTEO 20 MCG SUBCUT SCH (09:25)
[2017-04-20] MEDS: [UNRECOGNIZED DRUG - OTHER] PO SCH ×3 (11:43→22:37)
[2017-04-20] MEDS: CALCIUM PO SCH ×3 (11:43→22:37)
[2017-04-20] MEDS: VIT D PO SCH ×3 (11:43→22:37)
[2017-04-20] MEDS: Nitrofurantoin Monohydrate/Macrocrystalline 100 MG Cap PO SCH ×2 (14:27→20:41)
[2017-04-20] MEDS: Simvastatin 20 MG Tab PO SCH (20:42)
[2017-04-20] MEDS: Cyclobenzaprine 10 MG Tab **OWN MED PO SCH (20:42)
[2017-04-20] MEDS: ROPINIROLE 1 MG PO SCH (20:43)
[2017-04-21] MEDS: Polyethylene Glycol 3350 Powder 17 GM Packet PO SCH (08:06)
[2017-04-21] MEDS: Sertraline 100 MG Tab PO SCH (08:07)
[2017-04-21] MEDS: Nitrofurantoin Monohydrate/Macrocrystalline 100 MG Cap PO SCH ×2 (08:07→20:38)
[2017-04-21] MEDS: Pregabalin 50 MG Cap PO SCH ×3 (08:07→20:37)
[2017-04-21] MEDS: Furosemide 20 MG Tab PO SCH (08:07)
[2017-04-21] MEDS: Ferrous Sulfate 325 MG Tab PO SCH ×2 (08:08→20:37)
[2017-04-21] MEDS: Potassium Chloride 20 MEQ Tab.ER PO SCH ×2 (08:08→20:38)
[2017-04-21] MEDS: Docusate Sodium 100 MG Cap PO PRN ×2 (08:08→20:43)
[2017-04-21] MEDS: [UNRECOGNIZED DRUG - OTHER] PO SCH (08:08)
[2017-04-21] MEDS: CALCIUM PO SCH (08:08)
[2017-04-21] MEDS: Carvedilol 6.25 MG Tab PO SCH ×2 (08:08→17:19)
[2017-04-21] MEDS: VIT D PO SCH (08:08)
[2017-04-21] MEDS: Acetaminophen 500 MG Tab PO SCH ×3 (08:08→20:37)
[2017-04-21] MEDS: Fluticasone Propionate Nasal Spray 16 GM Bottle **OWN MED NASBOTH SCH (08:09)
[2017-04-21] MEDS: FORTEO 20 MCG SUBCUT SCH (08:12)
[2017-04-21] MEDS: Simvastatin 20 MG Tab PO SCH (20:38)
[2017-04-21] MEDS: ROPINIROLE 1 MG PO SCH (20:38)
[2017-04-21] MEDS: Cyclobenzaprine 10 MG Tab **OWN MED PO SCH (20:39)
[2017-04-21] MEDS: CHOLECALCIFEROL PO SCH (20:39)
[2017-04-21] MEDS: CALCIUM CITRATE PO SCH (20:39)
[2017-04-21] MEDS: Acetaminophen/HYDROcodone 325-5 MG Tab PO PRN (20:40)
[2017-04-22] MEDS: Polyethylene Glycol 3350 Powder 17 GM Packet PO SCH (08:32)
[2017-04-22] MEDS: Sertraline 100 MG Tab PO SCH (08:33)
[2017-04-22] MEDS: Acetaminophen 500 MG Tab PO SCH ×3 (08:33→20:35)
[2017-04-22] MEDS: Nitrofurantoin Monohydrate/Macrocrystalline 100 MG Cap PO SCH ×2 (08:33→20:36)
[2017-04-22] MEDS: Pregabalin 50 MG Cap PO SCH ×3 (08:33→20:36)
[2017-04-22] MEDS: Fluticasone Propionate Nasal Spray 16 GM Bottle **OWN MED NASBOTH SCH (08:33)
[2017-04-22] MEDS: Carvedilol 6.25 MG Tab PO SCH ×2 (08:34→17:16)
[2017-04-22] MEDS: Furosemide 20 MG Tab PO SCH (08:34)
[2017-04-22] MEDS: Potassium Chloride 20 MEQ Tab.ER PO SCH ×2 (08:34→20:36)
[2017-04-22] MEDS: Ferrous Sulfate 325 MG Tab PO SCH ×2 (08:37→20:35)
[2017-04-22] MEDS: CHOLECALCIFEROL PO SCH ×2 (08:37→20:36)
[2017-04-22] MEDS: CALCIUM CITRATE PO SCH ×2 (08:37→20:36)
[2017-04-22] MEDS: FORTEO 20 MCG SUBCUT SCH (08:42)
[2017-04-22] MEDS: Multivitamins with Iron/Calcium/Folic Acid/Minerals Tab PO SCH (08:43)
[2017-04-22] MEDS: Simvastatin 20 MG Tab PO SCH (20:36)
[2017-04-22] MEDS: ROPINIROLE 1 MG PO SCH (20:36)
[2017-04-22] MEDS: Cyclobenzaprine 10 MG Tab **OWN MED PO SCH (20:36)
[2017-04-22] MEDS: Acetaminophen/HYDROcodone 325-5 MG Tab PO PRN (20:36)
[2017-04-23] MEDS: Nitrofurantoin Monohydrate/Macrocrystalline 100 MG Cap PO SCH ×2 (08:41→20:17)
[2017-04-23] MEDS: Ferrous Sulfate 325 MG Tab PO SCH ×2 (08:42→20:20)
[2017-04-23] MEDS: Potassium Chloride 20 MEQ Tab.ER PO SCH ×2 (08:42→20:17)
[2017-04-23] MEDS: Pregabalin 50 MG Cap PO SCH ×3 (08:42→20:17)
[2017-04-23] MEDS: Multivitamins with Iron/Calcium/Folic Acid/Minerals Tab PO SCH (08:42)
[2017-04-23] MEDS: Sertraline 100 MG Tab PO SCH (08:42)
[2017-04-23] MEDS: Acetaminophen 500 MG Tab PO SCH ×3 (08:42→20:20)
[2017-04-23] MEDS: Carvedilol 6.25 MG Tab PO SCH ×2 (08:42→17:55)
[2017-04-23] MEDS: Fluticasone Propionate Nasal Spray 16 GM Bottle **OWN MED NASBOTH SCH (08:43)
[2017-04-23] MEDS: FORTEO 20 MCG SUBCUT SCH (08:43)
[2017-04-23] MEDS: CHOLECALCIFEROL PO SCH ×2 (08:44→20:22)
[2017-04-23] MEDS: CALCIUM CITRATE PO SCH ×2 (08:44→20:22)
[2017-04-23] MEDS: Polyethylene Glycol 3350 Powder 17 GM Packet PO SCH (08:48)
[2017-04-23] MEDS: Furosemide 20 MG Tab PO SCH (08:49)
--- NOTE | 2017-04-23 10:50 | PN ---
Progress Note for ANURAG SAMAYOA Date: 04/23/2017 Room #: VM.221 SUBJECTIVE: A 71-year-old white female, on swing bed recovering from cervical spine surgery. I was asked to look at her incision today, nurse was concerned about some discoloration. The patient is doing well. She has a [place] collar on for stabilization and immobilization. Her medications are reviewed. OBJECTIVE: General: She is alert. She is afebrile. Vital Signs: Stable. Skin: The incision looks well. There is some redness throughout the whole extent of the incision mainly about the sutures. There is no drainage. There is no open areas that are noticeable. ASSESSMENT: Healing incision. PLAN: The patient is reassured, they may want to put some Telf[place] over the incision to keep it from rubbing on the [place] collar. FM: 04/23/2017 10:02:25 MODL: 04/23/2017 10:32:16 /[id number]
[2017-04-23] MEDS: Simvastatin 20 MG Tab PO SCH (20:17)
[2017-04-23] MEDS: Cyclobenzaprine 10 MG Tab **OWN MED PO SCH (20:18)
[2017-04-23] MEDS: ROPINIROLE 1 MG PO SCH (20:23)
[2017-04-24 07:28] LABS: CHLORIDE,CL 101 mmol/L (98-107); SODIUM,NA 137 mmol/L (136-145)
[2017-04-24] MEDS: Polyethylene Glycol 3350 Powder 17 GM Packet PO SCH (08:05)
[2017-04-24] MEDS: Sertraline 100 MG Tab PO SCH (08:06)
[2017-04-24] MEDS: Pregabalin 50 MG Cap PO SCH ×3 (08:06→20:20)
[2017-04-24] MEDS: Potassium Chloride 20 MEQ Tab.ER PO SCH ×2 (08:06→20:21)
[2017-04-24] MEDS: Multivitamins with Iron/Calcium/Folic Acid/Minerals Tab PO SCH (08:06)
[2017-04-24] MEDS: Furosemide 20 MG Tab PO SCH (08:06)
[2017-04-24] MEDS: Carvedilol 6.25 MG Tab PO SCH ×2 (08:07→18:47)
[2017-04-24] MEDS: Nitrofurantoin Monohydrate/Macrocrystalline 100 MG Cap PO SCH ×2 (08:07→20:21)
[2017-04-24] MEDS: Acetaminophen 500 MG Tab PO SCH ×3 (08:07→20:21)
[2017-04-24] MEDS: Ferrous Sulfate 325 MG Tab PO SCH ×2 (08:08→20:20)
[2017-04-24] MEDS: Fluticasone Propionate Nasal Spray 16 GM Bottle **OWN MED NASBOTH SCH (08:09)
[2017-04-24] MEDS: CHOLECALCIFEROL PO SCH ×2 (08:09→20:22)
[2017-04-24] MEDS: CALCIUM CITRATE PO SCH ×2 (08:09→20:22)
[2017-04-24] MEDS: FORTEO 20 MCG SUBCUT SCH (08:10)
[2017-04-24] MEDS: Simvastatin 20 MG Tab PO SCH (20:20)
[2017-04-24] MEDS: ROPINIROLE 1 MG PO SCH (20:24)
[2017-04-24] MEDS: Cyclobenzaprine 10 MG Tab **OWN MED PO SCH (20:24)
[2017-04-25] MEDS: Pregabalin 50 MG Cap PO SCH ×3 (07:49→20:37)
[2017-04-25] MEDS: Polyethylene Glycol 3350 Powder 17 GM Packet PO SCH (07:49)
[2017-04-25] MEDS: Multivitamins with Iron/Calcium/Folic Acid/Minerals Tab PO SCH (07:49)
[2017-04-25] MEDS: Ferrous Sulfate 325 MG Tab PO SCH ×2 (07:49→20:37)
[2017-04-25] MEDS: Fluticasone Propionate Nasal Spray 16 GM Bottle **OWN MED NASBOTH SCH (07:50)
[2017-04-25] MEDS: Sertraline 100 MG Tab PO SCH (07:50)
[2017-04-25] MEDS: Nitrofurantoin Monohydrate/Macrocrystalline 100 MG Cap PO SCH ×2 (07:50→20:37)
[2017-04-25] MEDS: Potassium Chloride 20 MEQ Tab.ER PO SCH ×2 (07:50→20:37)
[2017-04-25] MEDS: CHOLECALCIFEROL PO SCH ×2 (07:50→20:37)
[2017-04-25] MEDS: CALCIUM CITRATE PO SCH ×2 (07:50→20:37)
[2017-04-25] MEDS: Acetaminophen 500 MG Tab PO SCH ×3 (07:50→20:37)
[2017-04-25] MEDS: Carvedilol 6.25 MG Tab PO SCH ×2 (07:50→20:36)
[2017-04-25] MEDS: Furosemide 20 MG Tab PO SCH (07:50)
[2017-04-25] MEDS: FORTEO 20 MCG SUBCUT SCH (07:57)
[2017-04-25] MEDS: ROPINIROLE 1 MG PO SCH (20:37)
[2017-04-25] MEDS: Cyclobenzaprine 10 MG Tab **OWN MED PO SCH (20:37)
[2017-04-25] MEDS: Simvastatin 20 MG Tab PO SCH (20:37)
[2017-04-26] MEDS: Potassium Chloride 20 MEQ Tab.ER PO SCH ×2 (07:50→19:27)
[2017-04-26] MEDS: Sertraline 100 MG Tab PO SCH (07:50)
[2017-04-26] MEDS: Multivitamins with Iron/Calcium/Folic Acid/Minerals Tab PO SCH (07:50)
[2017-04-26] MEDS: Pregabalin 50 MG Cap PO SCH ×3 (07:50→19:28)
[2017-04-26] MEDS: Fluticasone Propionate Nasal Spray 16 GM Bottle **OWN MED NASBOTH SCH (07:50)
[2017-04-26] MEDS: Furosemide 20 MG Tab PO SCH (07:50)
[2017-04-26] MEDS: Polyethylene Glycol 3350 Powder 17 GM Packet PO SCH (07:50)
[2017-04-26] MEDS: Carvedilol 6.25 MG Tab PO SCH ×2 (07:50→17:32)
[2017-04-26] MEDS: Acetaminophen 500 MG Tab PO SCH ×3 (07:51→19:28)
[2017-04-26] MEDS: Ferrous Sulfate 325 MG Tab PO SCH ×2 (07:51→19:28)
[2017-04-26] MEDS: CHOLECALCIFEROL PO SCH ×2 (07:51→19:26)
[2017-04-26] MEDS: CALCIUM CITRATE PO SCH ×2 (07:51→19:26)
[2017-04-26] MEDS: FORTEO 20 MCG SUBCUT SCH (07:51)
[2017-04-26] MEDS: ROPINIROLE 1 MG PO SCH (19:26)
[2017-04-26] MEDS: Simvastatin 20 MG Tab PO SCH (19:28)
[2017-04-26] MEDS: Cyclobenzaprine 10 MG Tab **OWN MED PO SCH (19:29)
[2017-04-27] MEDS: Ferrous Sulfate 325 MG Tab PO SCH ×2 (10:08→20:35)
[2017-04-27] MEDS: Potassium Chloride 20 MEQ Tab.ER PO SCH ×2 (10:08→20:35)
[2017-04-27] MEDS: Pregabalin 50 MG Cap PO SCH ×3 (10:08→20:36)
[2017-04-27] MEDS: Carvedilol 6.25 MG Tab PO SCH ×2 (10:08→18:45)
[2017-04-27] MEDS: Furosemide 20 MG Tab PO SCH (10:08)
[2017-04-27] MEDS: Fluticasone Propionate Nasal Spray 16 GM Bottle **OWN MED NASBOTH SCH (10:08)
[2017-04-27] MEDS: Multivitamins with Iron/Calcium/Folic Acid/Minerals Tab PO SCH (10:09)
[2017-04-27] MEDS: Polyethylene Glycol 3350 Powder 17 GM Packet PO SCH (10:09)
[2017-04-27] MEDS: FORTEO 20 MCG SUBCUT SCH (10:09)
[2017-04-27] MEDS: Sertraline 100 MG Tab PO SCH (10:09)
[2017-04-27] MEDS: Acetaminophen 500 MG Tab PO SCH ×3 (10:09→20:35)
[2017-04-27] MEDS: CHOLECALCIFEROL PO SCH ×2 (10:09→20:34)
[2017-04-27] MEDS: CALCIUM CITRATE PO SCH ×2 (10:09→20:34)
[2017-04-27] MEDS: Cyclobenzaprine 10 MG Tab **OWN MED PO SCH (20:35)
[2017-04-27] MEDS: ROPINIROLE 1 MG PO SCH (20:35)
[2017-04-27] MEDS: Simvastatin 20 MG Tab PO SCH (20:36)
[2017-04-28 06:35] VITALS: BP 169/82
[2017-04-28] MEDS: CHOLECALCIFEROL PO SCH (08:24)
[2017-04-28] MEDS: Multivitamins with Iron/Calcium/Folic Acid/Minerals Tab PO SCH (08:24)
[2017-04-28] MEDS: CALCIUM CITRATE PO SCH (08:24)
[2017-04-28] MEDS: Ferrous Sulfate 325 MG Tab PO SCH (08:24)
[2017-04-28] MEDS: Acetaminophen 500 MG Tab PO SCH (08:25)
[2017-04-28] MEDS: Polyethylene Glycol 3350 Powder 17 GM Packet PO SCH (08:25)
[2017-04-28] MEDS: Fluticasone Propionate Nasal Spray 16 GM Bottle **OWN MED NASBOTH SCH (08:30)
[2017-04-28] MEDS: FORTEO 20 MCG SUBCUT SCH (08:43)
[2017-04-28] MEDS: Furosemide 20 MG Tab PO SCH (08:44)
[2017-04-28] MEDS: Pregabalin 50 MG Cap PO SCH (08:44)
[2017-04-28] MEDS: Potassium Chloride 20 MEQ Tab.ER PO SCH (08:44)
[2017-04-28] MEDS: Sertraline 100 MG Tab PO SCH (08:44)
[2017-04-28] MEDS: Carvedilol 6.25 MG Tab PO SCH (08:45)
--- NOTE | 2017-04-28 09:54 | PCM.DCSUM1 ---
Discharge Summary - Hospital Course Brief History: Mrs. Zaldivar is a 71 yo female who was admitted for swing bed following a cervical spine fusion. - Discharge Data Discharge Date: 04/28/17 Discharge Disposition: Home, W Home Health Agency 06 Condition: Good - Patient Summary/Data Operative Procedure(s) Performed: none Complications: none Consults: Consultations 04/19/17 15:35 PT Evaluation and Treatment [CONS] Routine Labs Pending at D/C: none Recommended Follow-up Testing/Procedures: none Planned Operative Procedure(s) after DC: none Hospital Course: Her therapy progressed much more quickly than expected and it was felt she could reasonably return home with home health as of 04/28. There was some concern about redness around her incision site but this was felt not to be infected and the appearance remained stable over time. Her home medications were continued without incident. She will be getting ongoing therapies through home health in [place]. Paperwork completed for this. - Patient Instructions Diet: Usual Diet as Tolerated - Discharge Plan Home Medications: Home Meds Fluticasone Propionate [Flonase] 2 spray NASBOTH DAILY 11/10/16 [History] Sertraline [Zoloft] 100 mg PO DAILY 11/10/16 [History] Simvastatin [Zocor] 20 mg PO BEDTIME 11/10/16 [History] Acetaminophen [Acetaminophen Extra Strength] 1,000 mg PO TID 02/10/17 [History] Ferrous Sulfate 325 mg PO BID 02/10/17 [History] Pregabalin [Lyrica] 50 mg PO TID 02/10/17 [History] rOPINIRole [Requip] 1.5 mg PO BEDTIME 02/10/17 [History] Carvedilol [Coreg] 3.125 mg PO BIDMEALS #60 tablet 03/24/17 [Rx] Forteo 20mcg/Dose 20 mcg SUBCUT DAILY #0 device 03/24/17 [Rx] Furosemide [Lasix] 20 mg PO DAILY #30 tablet 03/24/17 [Rx] LORazepam [Ativan] 1 mg PO BID PRN #0 tablet 03/24/17 [Rx] Calcium Carb/Vitamin D3/Vit K1 [Calcium + Vit D & K Chew] 1 tab PO BID 04/19/17 [History] Cyclobenzaprine [Flexeril] 5 mg PO BEDTIME 04/19/17 [History] Docusate Sodium 100 mg PO BID PRN 04/19/17 [History] Polyethylene Glycol 3350 [MiraLAX] 17 gm PO DAILY 04/19/17 [History] - Discharge Summary/Plan Comment DC Time >30 min.: No - General Info Date of Service: 04/28/17 Subjective Update: Doing well today. Pain is controlled on tylenol and she does not want a narcotic prescription for homegoing. Still with some numbness in her hands but this is improved from before surgery. No other concerns. - Review of Systems General: Reports: No Symptoms HEENT: Reports: No Symptoms Pulmonary: Reports: No Symptoms Cardiovascular: Reports: No Symptoms Gastrointestinal: Reports: No Symptoms Genitourinary: Reports: No Symptoms Musculoskeletal: Reports: No Symptoms Skin: Reports: No Symptoms Neurological: Reports: No Symptoms - Patient Data Vitals - Most Recent: Last Vital Signs Temp 36.4 C 04/28/17 06:00 Pulse 103 H 04/28/17 06:00 Resp 18 04/28/17 06:00 BP 169/82 H 04/28/17 06:00 Pulse Ox 96 04/28/17 06:00 Weight - Most Recent: 94.347 kg I&O - Last 24 hours: Intake & Output 04/27/17 04/28/17 04/28/17 22:59 06:59 14:59 Intake Total 480 420 Balance 480 420 Med Orders - Current: Current Medications Acetaminophen (Tylenol Extra Strength) 1,000 mg PO TID [facility] Last Admin: 04/28/17 08:25 Dose: 1,000 mg Hydrocodone Bitart/Acetaminophen ([place] 325-5 Mg) 2 tab PO Q6H PRN PRN Reason: Pain Last Admin: 04/22/17 20:36 Dose: 2 tab Carvedilol (Coreg) 3.125 mg PO BIDMEALS [facility] Last Admin: 04/28/17 08:45 Dose: 3.125 mg Cyclobenzaprine HCl (Flexeril) 5 mg PO BEDTIME [facility] Last Admin: 04/27/17 20:35 Dose: 5 mg Docusate Sodium (Colace) 100 mg PO BID PRN PRN Reason: Constipation Last Admin: 04/21/17 20:43 Dose: 100 mg Ferrous Sulfate (Ferrous Sulfate) 325 mg PO BID [facility] Last Admin: 08/25/17 08:24 Dose: 325 mg Fluticasone Propionate (Flonase) 0 gm NASBOTH DAILY [facility] Last Admin: 04/28/17 08:30 Dose: 2 spray Furosemide (Lasix) 20 mg PO DAILY [facility] Last Admin: 04/28/17 08:44 Dose: 20 mg Lorazepam (Ativan) 1 mg PO BID PRN PRN Reason: Anxiety Multivitamins/Minerals (Thera M Plus) 1 tab PO DAILY [facility] Last Admin: 04/28/17 08:24 Dose: 1 tab Own Med Forteo 20 (Mcg) 0 each SUBCUT DAILY [facility] Last Admin: 04/28/17 08:43 Dose: 1 each Patients Own Med Calcium Citrate With Vit D 2 each PO BID [facility] Last Admin: 04/28/17 08:24 Dose: 2 each Ropinirole 1 Mg Tab (Own Med) 1.5 each PO BEDTIME [facility] Last Admin: 04/27/17 20:35 Dose: 1.5 each Polyethylene Glycol (Miralax) 17 gm PO DAILY [facility] Last Admin: 04/28/17 08:25 Dose: Not Given Potassium Chloride (Klor-Con M20) 20 meq PO BID [facility] Last Admin: 04/28/17 08:44 Dose: 20 meq Pregabalin (Lyrica) 50 mg PO TID [facility] Last Admin: 04/28/17 08:44 Dose: 50 mg Sertraline HCl (Zoloft) 100 mg PO DAILY [facility] Last Admin: 04/28/17 08:44 Dose: 100 mg Simvastatin (Zocor) 20 mg PO BEDTIME [facility] Last Admin: 04/27/17 20:36 Dose: 20 mg Discontinued Medications Nitrofurantoin Macrocrystals (Macrobid) 100 mg PO BID [facility] Stop: 04/25/17 23:59 Last Admin: 04/25/17 20:37 Dose: 100 mg Calcium + Vit D & K (Chew Ptom) 1 each PO BID [facility] Last Admin: 04/21/17 08:08 Dose: 1 each Ropinirole HCl (Requip) 1.5 mg PO BEDTIME [facility] Last Admin: 04/19/17 21:21 Dose: 1.5 mg Sodium Chloride (Saline Flush) 10 ml FLUSH ASDIRECTED PRN PRN Reason: Keep Vein Open - Exam General: Reports: Alert, Oriented, Cooperative, No Acute Distress HEENT: Reports: Pupils Equal, Pupils Reactive, Mucous Membr. Moist/[place] Neck: Reports: Supple, No Thyromegaly, Other (incision site is healing well without signs of infection). Denies: Lymphadenopathy Lungs: Reports: Clear to Auscultation, Normal Respiratory Effort Cardiovascular: Reports: Regular Rate, Regular Rhythm, No Murmurs GI/Abdominal Exam: Normal Bowel Sounds, Soft, Non-Tender, No Organomegaly, No Distention, No Mass Extremities: Normal Inspection, Non-Tender, No Pedal Edema, Normal Capillary Refill Skin: Reports: Warm, Dry, Intact *Q Meaningful Use (DIS) - VTE *Q VTE Criteria *Q: - Stroke *Q Stroke Criteria *Q: - AMI *Q AMI Criteria *Q:
== END 2017-04-28 11:05 | disposition home health service (06) | DRG 561 ==
LOC: VM.MS 14:30
PROVIDERS: ADMIT Family Medicine; ATTEND Family Medicine
DX: Z47.89 Encounter for other orthopedic aftercare (principal); D50.9 Iron deficiency anemia, unspecified; E78.00 Pure hypercholesterolemia, unspecified; Z88.0 Allergy status to penicillin; Z88.8 Allergy status to other drugs, medicaments and biological substances; Z88.6 Allergy status to analgesic agent; Z79.899 Other long term (current) drug therapy; I10 Essential (primary) hypertension; H91.90 Unspecified hearing loss, unspecified ear; G89.29 Other chronic pain; M54.9 Dorsalgia, unspecified; M19.90 Unspecified osteoarthritis, unspecified site; F32.9 Major depressive disorder, single episode, unspecified; F41.9 Anxiety disorder, unspecified; E66.9 Obesity, unspecified; Z68.30 Body mass index [BMI] 30.0-30.9, adult; E21.3 Hyperparathyroidism, unspecified; R73.03 Prediabetes; Z86.14 Personal history of Methicillin resistant Staphylococcus aureus infection
CPT/HCPCS: 36415; 80048; 81001; 83735; 85025; 87086; 87186; 97110-GP; 97116-GP; 97163-GP; 97165-GO; 97535-GO; A9270-GY

== ENCOUNTER 2025-01-13 08:54 | Day surgery (SDC) | payer MEDICARE, OTHER ==
[~2025-01-13 08:54] MED LIST: Brimonidine 0.2% Ophth Soln 5 ML Bottle ONE; Dexamethasone/Neomycin/Polymyxin B Ophth Oint 3.5 GM Tube ONE; Lidocaine 1% 2 ML ONE; Midazolam 1 MG/ML 2 ML SDV ONE; Phenyleprhine/Ketorolac 4 ML Vial ONE; Povidone-Iodine 5% Sterile Ophth Soln 30 ML Bottle ONE; Proparacaine 0.5% Ophth Soln 15 ML Bottle ONE; fentaNYL 100 MCG/2 ML SDV ONE
[2025-01-13] MEDS ORDERED: ceFAZolin 500 MG Vial ONE (09:00)
[2025-01-13] MEDS: Phenylephrine 2.5% Ophth Soln 2 ML Bot EYERT SCH (09:13)
[2025-01-13] MEDS: Tropicamide 1% Ophth Soln 15 ML Bottle EYERT SCH (09:13)
[2025-01-13] MEDS: Cyclopentolate 1% Opth Soln 2 ML Bottle EYERT SCH (09:14)
[2025-01-13] MEDS: Moxifloxacin 0.5% Ophth Soln 3 ML Bottle EYERT ONE ×2 (09:34→10:26)
[2025-01-13] MEDS: Povidone-Iodine 5% Sterile Ophth Soln 30 ML Bottle EYERT ONE (10:26)
[2025-01-13] MEDS: Balanced Salt Solution Ophth Irrig 500 ML Bottle IOCULAR ONE (10:26)
[2025-01-13] MEDS: Chondroitin Sulfate/Hyaluronate Sodium Ophth Inj 0.5 ML Syringe IOCULAR ONE (10:27)
[2025-01-13] MEDS: Phenyleprhine/Ketorolac 4 ML Vial IO ONE (10:27)
[2025-01-13] MEDS: Lidocaine 1% PF 2 ML SDV INFILT ONE (10:27)
[2025-01-13] MEDS: Brimonidine 0.2% Ophth Soln 5 ML Bottle EYERT ONE (10:28)
[2025-01-13] MEDS: Dexamethasone/Neomycin/Polymyxin B Ophth Oint 3.5 GM Tube EYERT ONE (10:28)
[2025-01-13] MEDS: acetaZOLAMIDE 500 MG Cap.ER PO ONE (10:51)
[2025-01-13 10:56] VITALS: BP 118/66; PULSE 79
== END 2025-01-13 11:10 | disposition home or self-care (01) ==
LOC: VM.SDS 08:54
PROVIDERS: ATTEND Ophthalmology
DX: H25.813 Combined forms of age-related cataract, bilateral (principal); I10 Essential (primary) hypertension; F32.5 Major depressive disorder, single episode, in full remission; E66.01 Morbid (severe) obesity due to excess calories; Z68.42 Body mass index [BMI] 45.0-49.9, adult; E78.5 Hyperlipidemia, unspecified; Z79.899 Other long term (current) drug therapy; Z88.0 Allergy status to penicillin; Z88.8 Allergy status to other drugs, medicaments and biological substances
CPT/HCPCS: 00142; 99100; A9270-GY; J0690; J1097; J2003; J2250; J3010; J3490; V2632

== ENCOUNTER 2025-02-10 09:42 | Day surgery (SDC) | payer MEDICARE, OTHER ==
[~2025-02-10 09:42] MED LIST changes: +Cyclopentolate 1% Opth Soln 2 ML Bottle EYERT SCH; -Midazolam 1 MG/ML 2 ML SDV ONE; +Moxifloxacin 0.5% Ophth Soln 3 ML Bottle EYERT ONE; +Phenylephrine 2.5% Ophth Soln 2 ML Bot EYERT SCH; +Tropicamide 1% Ophth Soln 15 ML Bottle EYERT SCH; -fentaNYL 100 MCG/2 ML SDV ONE
[2025-02-10] MEDS: Phenylephrine 2.5% Ophth Soln 2 ML Bot EYELF SCH (10:15)
[2025-02-10] MEDS: Tropicamide 1% Ophth Soln 15 ML Bottle EYELF SCH (10:15)
[2025-02-10] MEDS: Cyclopentolate 1% Opth Soln 2 ML Bottle EYELF SCH (10:15)
[2025-02-10] MEDS: Moxifloxacin 0.5% Ophth Soln 3 ML Bottle EYELF ONE ×2 (10:42→11:37)
[2025-02-10] MEDS ORDERED: Midazolam 1 MG/ML 2 ML SDV ONE (10:51)
[2025-02-10] MEDS ORDERED: fentaNYL 100 MCG/2 ML SDV ONE (10:51)
[2025-02-10] MEDS ORDERED: ceFAZolin 500 MG Vial ONE (11:25)
[2025-02-10] MEDS: Povidone-Iodine 5% Sterile Ophth Soln 30 ML Bottle EYELF ONE (11:37)
[2025-02-10] MEDS: Phenyleprhine/Ketorolac 4 ML Vial IO ONE (11:38)
[2025-02-10] MEDS: Lidocaine 1% PF 2 ML SDV INFILT ONE (11:38)
[2025-02-10] MEDS: Chondroitin Sulfate/Hyaluronate Sodium Ophth Inj 0.5 ML Syringe IOCULAR ONE (11:38)
[2025-02-10] MEDS: Balanced Salt Solution Ophth Irrig 500 ML Bottle IOCULAR ONE (11:38)
[2025-02-10] MEDS: Dexamethasone/Neomycin/Polymyxin B Ophth Oint 3.5 GM Tube EYELF ONE (11:39)
[2025-02-10] MEDS: Brimonidine 0.2% Ophth Soln 5 ML Bottle EYELF ONE (11:39)
[2025-02-10] MEDS: acetaZOLAMIDE 500 MG Cap.ER PO ONE (12:18)
[2025-02-10 12:27] VITALS: BP 143/69; PULSE 62
== END 2025-02-10 12:35 | disposition home or self-care (01) ==
LOC: VM.SDS 09:42
PROVIDERS: ATTEND Ophthalmology
DX: H25.813 Combined forms of age-related cataract, bilateral (principal); I10 Essential (primary) hypertension; F32.5 Major depressive disorder, single episode, in full remission; E78.5 Hyperlipidemia, unspecified; E66.01 Morbid (severe) obesity due to excess calories; Z68.42 Body mass index [BMI] 45.0-49.9, adult; Z79.899 Other long term (current) drug therapy; Z88.0 Allergy status to penicillin; Z88.8 Allergy status to other drugs, medicaments and biological substances
CPT/HCPCS: 00142; 99100; A9270-GY; J0690; J1097; J2003; J2250; J3010; J3490; V2632